=== PATIENT | female | born 1985 | race African-American/Black ===

== ENCOUNTER 2018-08-15 07:19 | Inpatient (IN) | payer OTHER ==
[~2018-08-15] VITALS: Ht 162.6 cm; Wt 113.4 kg
--- NOTE | 2018-08-15 07:32 | EN ---
Date/Time of Note Date/Time of Note DATE: 08/15/18 TIME: 07:31 ER Progress Note Patient is a direct admission from [facility]. Upon arrival, I reviewed the patient's records. Patient appears stable and comfortable. Current medical screening examination shows the patient to require further admission as per her evaluation at [facility] the patient will be admitted when a bed is available. VALERIE VALERIO Aug 15, 2018 07:32
[2018-08-15] MEDS ORDERED: HYDROmorphONE 2 MG/ML SYG IV STA (07:56)
[2018-08-15] MEDS ORDERED: ALPRAZOLAM 1 MG TAB PO ONE (08:00)
[2018-08-15] MEDS ORDERED: HEPARIN 1000 UNITS/ML 10 ML INJ IV PRN ×2 (10:00)
[2018-08-15] MEDS ORDERED: ALPR1TAB2 PO (10:12)
[2018-08-15] MEDS ORDERED: OXYC5CAP17 PO (10:13)
[2018-08-15] MEDS: morphine 2 MG INJ IV PRN ×2 (11:43→20:20)
[2018-08-15] MEDS ORDERED: DOCUSATE SODIUM 100 MG CAP PO PRN (14:00)
[2018-08-15] MEDS ORDERED: HYDROmorphONE 1 MG/ML SYG IV ONE (14:00)
[2018-08-15] MEDS ORDERED: ONDANSETRON 4 MG INJ IV PRN (14:00)
[2018-08-15] MEDS ORDERED: MAGNESIUM HYDROXIDE 30ML CUP PO PRN (14:00)
[2018-08-15] MEDS ORDERED: NACL 0.9% 3 ML SYG IV SCH (14:00)
[2018-08-15] MEDS ORDERED: BISACODYL 10 MG SUPP PR PRN (14:00)
[2018-08-15] MEDS ORDERED: HYDROCODONE/APAP (5/325) TAB PO PRN (14:00)
--- NOTE | 2018-08-15 14:16 | HP ---
Date/Time of Note Date/Time of Note DATE: 08/15/18 TIME: 14:02 Assessment/Plan VTE Prophylaxis SCD applied (from Nsg): Yes Pharmacological prophylaxis: heparin Assessment/Plan Hospital Course Assessment and plan 1. DVT right upper extremity. Continue with anticoagulation. f/u lab studies. Follow-up imaging. Continue with analgesics for pain control. We will get pain management consult 2. Reported endocarditis. Will get ID consult follow. Resume on Ancef. 3. Reported history of septic emboli to lung. Will obtain medical records from [facility]. Continue antibiotics. On anticoagulation. ID consult to follow. 4. Reported history of CHF. Follow-up on echo. O2 PRN 5. Obesity. Weight reduction to be advised 6. Anxiety. Continue anxiolytics Discussed POC with Dr. Shah Result Diagram: 08/15/18 1028 Results 24hrs Laboratory Tests Test 08/15/18 08:00 08/15/18 10:28 Activated Partial Thromboplast Time 44.5 H 36.5 H White Blood Count 8.1 Red Blood Count 3.66 L Hemoglobin 10.3 L Hematocrit 32.4 L Mean Corpuscular Volume 88.5 Mean Corpuscular Hemoglobin 28.1 L Mean Corpuscular Hemoglobin Concent 31.8 L Red Cell Distribution Width 14.7 H Platelet Count 270 Mean Platelet Volume 9.2 Immature Granulocytes % 0.200 Neutrophils % 55.6 Lymphocytes % 32.8 Monocytes % 9.7 Eosinophils % 1.2 Basophils % 0.5 Nucleated Red Blood Cells % 0.0 Immature Granulocytes # 0.020 Neutrophils # 4.5 Lymphocytes # 2.7 Monocytes # 0.8 Eosinophils # 0.1 Basophils # 0.0 Nucleated Red Blood Cells # 0.0 Prothrombin Time 12.8 Prothrombin Time Ratio 1.0 INR International Normalized Ratio 0.95 HPI/ROS Admit Date/Time Admit Date/Time Hx of Present Illness This is a 32-year-old female with 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 She reports that roughly 5 to 6 days ago she started to experience pain on right upper extremity where her PICC line was and went to [facility] again to have the plan removed and replaced and put a new PICC line on the left arm. She does report good compliance with her medication. She did state that her right arm started to in crease with swelling which she states extended to her breast on the right. She was brought back to [facility] but due to insurance issue was transferred to [facility] for further evaluation and treatment. Of note she did have duplex study done on right upper extremity roughly 2 days prior to this admission at [facility] and there was found to be a DVT. She denies any chest pain at present. Recent chest x-ray done on August 15, 2018 at [facility] showed no evidence of acute cardiopulmonary process. She was afebrile on arrival. She is slightly tachycardic suspect secondary to her reported history of anxiety and current pain. We will evaluate her for the aformentiond issues. ROS 12 point review of systems obtained entirely negative except as mentioned in history of present illness PMH/Family/Social Past Medical History medical/surgical history 1. Endocarditis 2. CHF 3. Reported "cardiac blood clot". 4. Septic emboli 5. Obesity 6. Anxiety Medications Current Medications Heparin Sodium (Porcine) (Heparin (1000 Units/ml)) 9,100 unit PER PROTOCOL PRN IV aPTT<47 Last administered on 08/15/18at 12:07; Admin Dose 9,100 UNIT; Start 08/15/18 at 10:00 Heparin Sodium (Porcine) (Heparin (1000 Units/ml)) 4,500 unit PER PROTOCOL PRN IV aPTT<47-57; Start 08/15/18 at 10:00 Heparin Sodium (Porcine) 250 ml @ 0 mls/hr PER PROTOCOL IV ; Start 08/15/18 at 10:00 Morphine Sulfate (morphine) 2 mg Q4 PRN IV CRIES SCALE 5-7 Last administered on 08/15/18at 11:43; Admin Dose 2 MG; Start 08/15/18 at 12:00 IV Flush (NS 3 ml) 3 ml PER PROTOCOL IV ; Start 08/15/18 at 14:00 Ondansetron HCl (Zofran Inj) 4 mg Q6H PRN IV NAUSEA/VOMITING; Start 08/15/18 at 14:00 Acetaminophen (Tylenol Tab) 650 mg Q6H PRN PO .PAIN 1-3 OR TEMP; Start 08/15/18 at 14:00 Acetaminophen/ Hydrocodone Bitart ([place] (5/325)) 1 tab Q6H PRN PO .MOD PAIN 4- 6; Start 08/15/18 at 14:00 Acetaminophen/ Hydrocodone Bitart ([place] (5/325)) 2 tab Q6H PRN PO .SEVERE PAIN 7-10; Start 08/15/18 at 14:00 Hydromorphone HCl (Dilaudid) 0.5 mg Q4H PRN IV .SEVERE PAIN 7-10; Start 08/15/18 at 14:00 Docusate Sodium (Colace) 100 mg Q12H PRN PO .CONSTIPATION; Start 08/15/18 at 14:00 Magnesium Hydroxide (Milk Of Mag) 30 ml DAILY PRN PO .CONSTIPATION; Start 08/15/18 at 14:00 Bisacodyl (Dulcolax Supp) 10 mg DAILY PRN [place] .CONSTIPATION; Start 08/15/18 at 14:00 Pantoprazole (Protonix Iv) 40 mg DAILY@06 IV ; Start 08/16/18 at 06:00 Cefazolin Sodium/ Dextrose 50 ml @ 100 mls/hr Q8 IVPB ; Start 08/15/18 at 14:00 Coded Allergies: No Known Allergy (Unverified , 08/15/18) Family History Significant Family History: other (Father side: CHF, diabetes, reported blood clots. Mother side: Hypertension) Social History Alcohol Use: none Smoking Status: Never smoker Drug Use: none Exam/Review of Systems Vital Signs Vitals Vital Signs Date Temp Pulse Resp B/P (MAP) Pulse Ox O2 O2 Flow FiO2 Time Delivery Rate 08/15/18 111 22 108/39 98 Room Air 13:08 (62) 08/15/18 97.3 07:41 Exam Constitutional: alert, oriented, other (Obese) Psych: anxiety Head: normocephalic Neck: supple, non-tender Respiratory: clear to auscultation Cardiovascular: other (Tachycardic) Gastrointestinal: soft, non-tender Musculoskeletal: swelling (Right upper extremity) Neurological: SCAFFOLD SETTER II-XII intact, nl mental status, nl speech REGIDORJOHN NP Aug 15, 2018 14:16
[2018-08-15] MEDS: CEFAZOLIN 2 GM/50 ML (PMX) 50 ML IVPB SCH ×2 (14:21→23:18)
[2018-08-15] MEDS: HEPARIN 25000 UNITS/250 ML 250 ML IV SCH (14:40)
[2018-08-15] MEDS: HYDROCODONE/APAP (5/325) TAB PO PRN ×2 (15:50→21:43)
[2018-08-15] MEDS: ALPRAZOLAM 1 MG TAB PO PRN (15:50)
[2018-08-15] MEDS: HYDROmorphONE 0.5 MG/0.5 ML SYG IV PRN ×2 (18:49→22:51)
--- NOTE | 2018-08-15 20:22 | CONS ---
DATE OF ADMISSION: 08/15/2018 DATE OF CONSULTATION: 08/15/2018 TYPE OF CONSULTATION: Infectious disease. REASON FOR CONSULTATION: Antibiotic management. HISTORY OF PRESENT ILLNESS: Magui Wilson is a 32-year-old female with a recent history of gram-pos itive cocci endocarditis reported septic emboli to her lung. She was cared for at [facility], discharged on 07/18/2018 with PICC line for antibiotics, Ancef for a total of 6 weeks. About 5 or 6 days ago, she experienced increasing right upper extremity pain where the PICC line was and went to [place] to have the PICC line removed and replaced. She does take her medications. She sta herber that her right arm started to have increasing swelling extending to her breast on the right side. A new PICC line was put on the left. The right arm continued to increase with swelling. She was t [facility]. A duplex on the right side 2 days ago prior to this admission, [place] was found to have a DVT of the right upper extremity. She denies any chest pain. No acute cardiop ulmonary process done at [place]. Today, she was slightly tachycardic, possibly due to anxiety and pain. PAST MEDICAL HISTORY: The patient has gram-positive endocarditis, congestive heart failure. A cardi ac blood clots which was reported as septic emboli, obesity and anxiety. FAMILY HISTORY: Noncontributory. Father has diabetes, also blood clots, congestive heart failure. FAMILY HISTORY: Mother has hypertension. SOCIAL HISTORY: She does not smoke, drink or abuse drugs. ALLERGIES: NONE TO PENICILLIN, SULFA OR FOODS. MEDICATIONS: Per chart. REVIEW OF SYSTEMS: As per HPI. PHYSICAL EXAMINATION: GENERAL: The patient is alert, responsive, in no acute distress. VITAL SIGNS: Stable. She is afebrile. SKIN: Without generalized rash. HEENT: Within normal limits. NECK: Supple. LYMPH NODES: None palpable. CHEST: Decreased breath sounds at the bases. HEART: Tachycardic without murmur or gallop. ABDOMEN: Soft, nontender without organosplenomegaly or masses. EXTREMITIES: The right upper extremity is swollen, but lower extremities without cyanosis, clubbing or edema. RECTAL AND GENITAL: Deferred. NEUROLOGICAL: No focal neurological abnormality. IMPRESSION AND PLAN: The patient is being treated for endocarditis, resume Ancef, deep venous thromb osis of right upper extremity, history of septic emboli to the lungs. Lungs are now clear. We will continue her on current therapy. Dictated By: MENDOZA DIAZ MD, JD/ELSY Conf#: [id number] DID#: [id number] CC: ESTRELLITA ANGEL MD;*EndCC*
[2018-08-15 20:23] VITALS: BP 150/85; PULSE 110; RESP 18
[2018-08-15 20:47] VITALS: Ht 162.6 cm; Wt 113.4 kg
[2018-08-16 00:06] VITALS: BP 127/73; PULSE 113; RESP 17
[2018-08-16 04:18] VITALS: BP 124/68; PULSE 103; RESP 17
[2018-08-16] MEDS: CEFAZOLIN 2 GM/50 ML (PMX) 50 ML IVPB SCH ×3 (05:18→21:02)
[2018-08-16] MEDS: PANTOPRAZOLE 40 MG INJ IV SCH (05:19)
[2018-08-16] MEDS: HYDROmorphONE 0.5 MG/0.5 ML SYG IV PRN ×4 (06:07→19:44)
[2018-08-16] MEDS: HEPARIN 25000 UNITS/250 ML 250 ML IV SCH (06:25)
[2018-08-16] MEDS: HYDROCODONE/APAP (5/325) TAB PO PRN ×2 (06:43→21:03)
[2018-08-16] MEDS: ALPRAZOLAM 1 MG TAB PO PRN ×2 (07:38→21:51)
[2018-08-16 07:42] VITALS: BP 132/66; PULSE 104; RESP 18
--- NOTE | 2018-08-16 09:38 | PN ---
Date/Time of Note Date/Time of Note DATE: 08/16/18 TIME: 09:37 Assessment/Plan VTE Prophylaxis SCD applied (from Nsg): Yes Pharmacological prophylaxis: heparin Lines/Catheters IV Catheter Type (from Nrsg): PICC Line Central line still needed: Yes Urinary Cath still in place: No Assessment/Plan Hospital Course SUBJECTIVE: Continues to complains of right upper extremity and right breast pain. OBJECTIVE: Physical Exam General: Morbidly obese, 32 year-old female lying in bed in no apparent distress. HEENT: Normocephalic, atraumatic. Eyes: Anicteric sclerae, conjunctivae clear. ENT: Nasal septum midline, oral mucosa moist. Neck supple, no JVD noticed. Respiratory: Bilaterally diminished breath sounds. No use of accessory muscles of respiration. No adventitious breath sounds. Cardiovascular: S1, S2 heard. Tachycardia. Abdomen: Soft, nontender, and nondistended. Bowel sounds positive in all 4 quadrants. Genitourinary: Deferred. Extremities: No cyanosis, no clubbing. Right upper extremity edema. Peripheral pulses palpable. Edema and warmth in the right biceps all the way into the axilla and right upper quadrant of the right breast. Neurologic: Cranial nerves II through XII grossly intact. The patient is awake, alert, and oriented. Skin: Normal skin turgor. Multiple tattoos. Labs & Vitals per chart ASSESSMENT & PLAN 32-year-old F with comorbidities including morbid obesity (BMI>42 kg/m), reported history of endocarditis, and anxiety disorder who was recently admitted to [facility] and was discharged home on July 18, 2018 with a PICC line for antibiotics for total of 6 weeks. The patient returned to [facility] with chief complaint of right upper extremity pain at the site of PICC with DVT on the RUE and her PICC was replaced on LUE; transferred to [facility] for because of insurance reasons. 1. Extensive DVT of the right upper extremity. On heparin drip. Vascular surgery has been consulted. 2. Reported history of endocarditis. Continue Ancef as per ID recommendations. Obtain cardiology consult. Pending 2D echo. 3. Morbid obesity. BMI more than 42 kg/m. Advised weight reduction. 4. Anxiety disorder. Continue PRN anxiolytics. 5. Normocytic anemia. Etiology unclear. Monitor H&H closely. 6. Fluids, electrolytes, and nutrition. Regular diet. 7. DVT prophylaxis. On heparin drip. 8. Plan. Continue antibiotics as per ID. Repeat 2D echocardiogram. Obtain cardiology consult. The patient was seen in collaboration with Dr. Herrera. Result Diagram: 08/16/18 0605 08/16/18 0605 Results 24hrs Laboratory Tests Test 08/15/18 10:28 08/15/18 14:45 08/15/18 16:21 08/15/18 17:35 White Blood Count 8.1 Red Blood Count 3.66 L Hemoglobin 10.3 L Hematocrit 32.4 L Mean Corpuscular Volume 88.5 Mean Corpuscular 28.1 L Hemoglobin Mean Corpuscular 31.8 L Hemoglobin Concent Red Cell Distribution 14.7 H Width Platelet Count 270 Mean Platelet Volume 9.2 Immature Granulocytes % 0.200 Neutrophils % 55.6 Lymphocytes % 32.8 Monocytes % 9.7 Eosinophils % 1.2 Basophils % 0.5 Nucleated Red Blood 0.0 Cells % Immature Granulocytes # 0.020 Neutrophils # 4.5 Lymphocytes # 2.7 Monocytes # 0.8 Eosinophils # 0.1 Basophils # 0.0 Nucleated Red Blood 0.0 Cells # Prothrombin Time 12.8 Prothrombin Time Ratio 1.0 INR International 0.95 Normalized Ratio Activated 36.5 H > 180.0 *H 54.9 H Partial Thromboplast Time Erythrocyte 60 H Sedimentation Rate Test 08/16/18 00:22 08/16/18 06:05 Activated 91.8 *H 144.0 *H Partial Thromboplast Time White Blood Count 7.5 Red Blood Count 3.51 L Hemoglobin 9.8 L Hematocrit 31.1 L Mean Corpuscular Volume 88.6 Mean Corpuscular 27.9 L Hemoglobin Mean Corpuscular 31.5 L Hemoglobin Concent Red Cell Distribution 14.8 H Width Platelet Count 292 Mean Platelet Volume 9.8 Immature Granulocytes % 0.300 Neutrophils % 63.8 Lymphocytes % 26.0 Monocytes % 7.9 Eosinophils % 1.6 Basophils % 0.4 Nucleated Red Blood 0.0 Cells % Immature Granulocytes # 0.020 Neutrophils # 4.8 Lymphocytes # 1.9 Monocytes # 0.6 Eosinophils # 0.1 Basophils # 0.0 Nucleated Red Blood 0.0 Cells # Sodium Level 139 Potassium Level 4.2 Chloride Level 104 Carbon Dioxide Level 28 Anion Gap 7 Blood Urea Nitrogen 13 Creatinine 0.47 Est Glomerular Filtrat > 60 Rate mL/min Glucose Level 100 Hemoglobin A1c 4.9 Calcium Level 8.8 Phosphorus Level 5.0 H Magnesium Level 1.8 Total Bilirubin 0.3 Direct Bilirubin 0.00 Indirect Bilirubin 0.3 Aspartate Amino 41 Transf (AST/SGOT) Alanine 21 Aminotransferase (ALT/SG PT) Alkaline Phosphatase 125 H Total Protein 6.7 Albumin 3.2 L Globulin 3.50 H Albumin/Globulin Ratio 0.91 Triglycerides Level 84 Cholesterol Level 179 LDL Cholesterol, 115 Calculated HDL Cholesterol 47 Cholesterol/HDL Ratio 3.8 Thyroid Stimulating 0.733 Hormone (TSH) Free Thyroxine Index 3.65 Thyroxine (T4) 9.2 Triiodothyronine (T3) 39.7 Uptake Exam/Review of Systems Exam Vitals Vital Signs Date Temp Pulse Resp B/P (MAP) Pulse Ox O2 O2 Flow FiO2 Time Delivery Rate 08/16/18 98.7 104 18 132/66 100 07:42 (88) 08/15/18 Room Air 19:41 Intake and Output 08/15/18 08/15/18 08/16/18 1515:00 23:00 07:00 IntakeIntake Total 200 ml 750 ml BalanceBalance 200 ml 750 ml Results Results 24hrs Laboratory Tests Test 08/15/18 10:28 08/15/18 14:45 08/15/18 16:21 08/15/18 17:35 White Blood Count 8.1 Red Blood Count 3.66 L Hemoglobin 10.3 L Hematocrit 32.4 L Mean Corpuscular Volume 88.5 Mean Corpuscular 28.1 L Hemoglobin Mean Corpuscular 31.8 L Hemoglobin Concent Red Cell Distribution 14.7 H Width Platelet Count 270 Mean Platelet Volume 9.2 Immature Granulocytes % 0.200 Neutrophils % 55.6 Lymphocytes % 32.8 Monocytes % 9.7 Eosinophils % 1.2 Basophils % 0.5 Nucleated Red Blood 0.0 Cells % Immature Granulocytes # 0.020 Neutrophils # 4.5 Lymphocytes # 2.7 Monocytes # 0.8 Eosinophils # 0.1 Basophils # 0.0 Nucleated Red Blood 0.0 Cells # Prothrombin Time 12.8 Prothrombin Time Ratio 1.0 INR International 0.95 Normalized Ratio Activated 36.5 H > 180.0 *H 54.9 H Partial Thromboplast Time Erythrocyte 60 H Sedimentation Rate Test 08/16/18 00:22 08/16/18 06:05 Activated 91.8 *H 144.0 *H Partial Thromboplast Time White Blood Count 7.5 Red Blood Count 3.51 L Hemoglobin 9.8 L Hematocrit 31.1 L Mean Corpuscular Volume 88.6 Mean Corpuscular 27.9 L Hemoglobin Mean Corpuscular 31.5 L Hemoglobin Concent Red Cell Distribution 14.8 H Width Platelet Count 292 Mean Platelet Volume 9.8 Immature Granulocytes % 0.300 Neutrophils % 63.8 Lymphocytes % 26.0 Monocytes % 7.9 Eosinophils % 1.6 Basophils % 0.4 Nucleated Red Blood 0.0 Cells % Immature Granulocytes # 0.020 Neutrophils # 4.8 Lymphocytes # 1.9 Monocytes # 0.6 Eosinophils # 0.1 Basophils # 0.0 Nucleated Red Blood 0.0 Cells # Sodium Level 139 Potassium Level 4.2 Chloride Level 104 Carbon Dioxide Level 28 Anion Gap 7 Blood Urea Nitrogen 13 Creatinine 0.47 Est Glomerular Filtrat > 60 Rate mL/min Glucose Level 100 Hemoglobin A1c 4.9 Calcium Level 8.8 Phosphorus Level 5.0 H Magnesium Level 1.8 Total Bilirubin 0.3 Direct Bilirubin 0.00 Indirect Bilirubin 0.3 Aspartate Amino 41 Transf (AST/SGOT) Alanine 21 Aminotransferase (ALT/SG PT) Alkaline Phosphatase 125 H Total Protein 6.7 Albumin 3.2 L Globulin 3.50 H Albumin/Globulin Ratio 0.91 Triglycerides Level 84 Cholesterol Level 179 LDL Cholesterol, 115 Calculated HDL Cholesterol 47 Cholesterol/HDL Ratio 3.8 Thyroid Stimulating 0.733 Hormone (TSH) Free Thyroxine Index 3.65 Thyroxine (T4) 9.2 Triiodothyronine (T3) 39.7 Uptake Medications Medication Current Medications Heparin Sodium (Porcine) (Heparin (1000 Units/ml)) 9,100 unit PER PROTOCOL PRN IV aPTT<47 Last administered on 08/15/18at 12:07; Admin Dose 9,100 UNIT; Start 08/15/18 at 10:00 Heparin Sodium (Porcine) (Heparin (1000 Units/ml)) 4,500 unit PER PROTOCOL PRN IV aPTT<47-57 Last administered on 08/15/18at 19:11; Admin Dose 4,500 UNIT; Start 08/15/18 at 10:00 Heparin Sodium (Porcine) 250 ml @ 0 mls/hr PER PROTOCOL IV Last administered on 08/16/18at 06:25; Admin Dose 26 MLS/HR; Start 08/15/18 at 10:00 Morphine Sulfate (morphine) 2 mg Q4 PRN IV CRIES SCALE 5-7 Last administered on 08/15/18at 20:20; Admin Dose 2 MG; Start 08/15/18 at 12:00 IV Flush (NS 3 ml) 3 ml PER PROTOCOL IV ; Start 08/15/18 at 14:00 Ondansetron HCl (Zofran Inj) 4 mg Q6H PRN IV NAUSEA/VOMITING; Start 08/15/18 at 14:00 Acetaminophen (Tylenol Tab) 650 mg Q6H PRN PO .PAIN 1-3 OR TEMP; Start 08/15/18 at 14:00 Acetaminophen/ Hydrocodone Bitart ([place] (5/325)) 1 tab Q6H PRN PO .MOD PAIN 4- 6; Start 08/15/18 at 14:00 Acetaminophen/ Hydrocodone Bitart ([place] (5/325)) 2 tab Q6H PRN PO .SEVERE PAIN 7-10 Last administered on 08/16/18at 06:43; Admin Dose 2 TAB; Start 08/15/18 at 14:00 Hydromorphone HCl (Dilaudid) 0.5 mg Q4H PRN IV .SEVERE PAIN 7-10 Last admi nistered on 08/16/18at 06:07; Admin Dose 0.5 MG; Start 08/15/18 at 14:00 Docusate Sodium (Colace) 100 mg Q12H PRN PO .CONSTIPATION; Start 08/15/18 at 14:00 Magnesium Hydroxide (Milk Of Mag) 30 ml DAILY PRN PO .CONSTIPATION; Start 08/15/18 at 14:00 Bisacodyl (Dulcolax Supp) 10 mg DAILY PRN [place] .CONSTIPATION; Start 08/15/18 at 14:00 Pantoprazole (Protonix Iv) 40 mg DAILY@06 IV Last administered on 08/16/18at 05:19; Admin Dose 40 MG; Start 08/16/18 at 06:00 Cefazolin Sodium/ Dextrose 50 ml @ 100 mls/hr Q8 IVPB Last administered on 08/16/18at 05:18; Admin Dose 100 MLS/HR; Start 08/15/18 at 14:00 Alprazolam (Xanax) 1 mg BID PRN PO ANXIETY Last administered on 08/16/18at 07:38; Admin Dose 1 MG; Start 08/15/18 at 14:30 JHOANA CAMPA NP Aug 16, 2018 09:38
[2018-08-16 12:05] VITALS: BP 123/69; PULSE 103; RESP 18
[2018-08-16 16:17] VITALS: BP 136/56; PULSE 100; RESP 17
[2018-08-16] MEDS: morphine 2 MG INJ IV PRN (17:57)
--- NOTE | 2018-08-16 18:47 | CONS ---
DATE OF ADMISSION: 08/15/2018 DATE OF CONSULTATION: 08/16/2018 TYPE OF CONSULTATION: Cardiology. REASON FOR CONSULTATION: Possible endocarditis. REQUESTING PHYSICIAN: Mak Mckeon NP, from the hospitalist service. HISTORY OF PRESENT ILLNESS: Ms. Wilson is a 32-year-old female with a history of reported bout of se psis with subsequent diagnosis of endocarditis and septic emboli per patient at [facility] on 07/15/2018, was given PICC line and diagnosed with long-term antibiotics for 6 weeks. The patien t states then she represented to [facility] recently last 2 to 3 days on 07/15/2018 with c omplaints of right arm pain and swelling and was diagnosed with DVT and subsequently had to have her PICC line removed and transferred to the opposite arm on the left side. The patient was thereafter t ransferred to [facility] due to insurance reasons. Since arrival at [facility], the patient denies chest pain, shortness of breath, palpitations. PAST MEDICAL HISTORY: As above in HPI. MEDICATIONS CURRENTLY IN HOSPITAL: 1. Dilaudid 1 mg IV q.4. 2. Protonix 40 mg IV daily. 3. Xanax 1 mg b.i.d. p.r.n. 4. Zofran p.r.n. 5. Tylenol p.r.n. 6. Maurice p.r.n. 7. Colace p.r.n. 8. Dulcolax. 9. Ancef IV q.8. 10. Heparin IV. ALLERGIES: NO KNOWN DRUG ALLERGIES. SOCIAL HISTORY: Quit tobacco less than 1 month. Rare, social EtOH. No illicit drug use. FAMILY HISTORY: No history of sudden cardiac or early CAD. REVIEW OF SYSTEMS: As above in HPI. CONSTITUTIONAL: No fevers, chills. PULMONARY: No current shortness of breath. CARDIOVASCULAR: No current chest pain. Mild tachycardia. GASTROINTESTINAL: No vomiting. GENITOURINARY: No hematuria. MUSCULOSKELETAL: Degenerative joint disease. PSYCHIATRIC: Positive history of psych disorder. NEUROLOGIC: No documented history of CVA. PHYSICAL EXAMINATION VITAL SIGNS: Temperature 97.6, blood pressure most recently 136/56, pulse 100, respiratory rate 17, saturation 100%. GENERAL: The patient is alert, awake, in no acute distress. NECK: JVP is approximately 8 to 9 cm of water. CHEST: Fair air movement throughout. HEART: Tachycardic, regular rhythm, normal S1, S2, I/ systolic murmur, nondisplaced PMI. ABDOMEN: Positive bowel sounds, soft. EXTREMITIES: Left upper extremity edema, 1+ pulses bilateral posterior tibial. NEUROLOGICAL: No focal neuro deficits. LABORATORY DATA: Most recent from today, white blood cell count 10.5, hemoglobin 9.8, platelet count 292. Sodium of 139, potassium 4.2, creatinine 0.47, BUN 13. Magnesium 1.8. LDL 115, HDL 47. TSH of 0.733. Tox screen is positive for opiates and benzos and cannabinoids. IMAGING STUDIES: Venous ultrasound from 08/15/2018 revealing extensive DVT in the right upper extrem ity and breast ultrasound from 08/16/2018 that revealed no sonographic finding of malignancy. ELECTROCARDIOGRAM: No electrocardiograms for my review at this time. IMPRESSION: 1. History of recently diagnosed endocarditis, assess for ongoing infection. 2. Tachycardia, borderline consistent with sinus tachycardia. 3. Hypertension, labile may be related to pain, currently improved, off of antihypertensives recentl y today. 4. Deep venous thrombosis of the right extremity, likely secondary to PICC line that was in place. 5. Anemia. 6. Psychiatric disorder. RECOMMENDATIONS: 1. At this time, we would maintain the patient on telemetry monitoring to follow rhythm and rate con trol closely. 2. We would continue the patient's baseline Ancef for treatment of ongoing infection and the patient 's ongoing heparin. 3. We will follow up patient's 2D echo done for reassessment of ejection fraction, wall motion, rule out any new intracardiac source of infection or ongoing intracardiac source of infection. 4. We would check blood cultures and follow up closely. 5. Awaiting outside hospital information to be faxed. Thank you for allowing me to take part in the care of this patient. I will continue to follow her cl osely with you with further recommendations will be made as the patient progresses [facility]. Dictated By: KI TIJERINA/NTS Conf#: [id number] DID#: [id number] CC: MENDOZA DIAZ MD; ESTRELLITA ANGEL MD;*EndCC*
[2018-08-16 20:14] VITALS: BP 135/67; PULSE 119; RESP 17
[2018-08-16] MEDS ORDERED: ALTEPLASE (CATHFLO) 2 MG INJ CATHETER ONE (22:30)
[2018-08-17] VITALS: BP 117/58; PULSE 112; RESP 18
--- NOTE | 2018-08-17 00:21 | RADRPT ---
Echocardiogram Report Patient Name: RAINE MATTSONPatient ID: [id number] : 1985 (32y 9m)Study Date: 08/16/2018 7:20:49 AM Gender: FAccession #: [id number] Tech: Columba Sosa [facility] Location: 504 Ref.Physician: JOHN WILL Height(Cm): BSA: Weight(Kg): Quality: AdequateOrder Physician: JOHN WILL Account #: Procedures: Echocardiographic Report: Transthoracic echocardiogram with complete 2D, M-Mode, and doppler examination. Indications: Endocarditis. Measurements: 2D/M Mode Doppler Measurement Value Normal Range Measurement Value Normal Range LVIDd 2D 4.3 [ 3.8 - 5.2 ] cm AV Peak Sathish 1.2 [ 100.0 - 170.0 ] cm/sec LVIDs 2D 2.7 [ 2.2 - 3.5 ] cm AV Peak PG 6.0 [ 2.0 - 9.0 ] mmHg LVPWd 2D 1.1 [ 0.6 - 0.9 ] cm LVOT Peak Sathish 0.8 [ 70.0 - 110.0 ] cm/sec IVSd 2D 1.1 [ 0.6 - 0.9 ] cm LVOT Peak PG 3.0 [ 2.0 - 6.0 ] mmHg AoR Diam 2D 2.8 [ 2.3 - 3.1 ] cm TR Peak Sathish 2.8 [ 100.0 - 280.0 ] cm/sec EDV 2D 84.0 [ 46.0 - 106.0 ] ml TR Peak PG 30.0 mmHg ESV 2D 27.3 [ 14.0 - 42.0 ] ml RVSP 33.0 [ 10.0 - 36.0 ] mmHg EF 2D 67.5 [ 54.0 - 74.0 ] percent RA Pressure 3.0 mmHg LA Dimen 2D 3.7 [ 2.7 - 3.8 ] cm Findings: Left Ventricle: Normal left ventricular systolic function. Normal left ventricular cavity size. Mild concentric left ventricular hypertrophy. Ejection fraction is visually estimated at 55 %. Abnormal Diastolic Function. Right Ventricle: Normal right ventricular size. Normal right ventricular systolic function. Left Atrium: The left atrium is normal in size. Right Atrium: The right atrium is normal in size. Mitral Valve: Normal appearance and function of the mitral valve with trace physiologic regurgitation. Aortic Valve: Normal appearance of the aortic valve. No significant aortic stenosis or insufficiency. Tricuspid Valve: Normal appearance of the tricuspid valve. The estimated Peak RVSP is 33 mmHg. There is mild tricuspid regurgitation. Pulmonic Valve: Normal pulmonic valve appearance. Pericardium: Normal pericardium with no significant pericardial effusion. Aorta: Normal aortic root. IVC: Normal size and normal respiratory collapse consistent with normal right atrial pressure. Conclusions: Normal left ventricular systolic function. Normal left ventricular cavity size. Mild concentric left ventricular hypertrophy. Ejection fraction is visually estimated at 55 %. Abnormal Diastolic Function. Normal appearance and function of the mitral valve with trace physiologic regurgitation. Normal appearance of the tricuspid valve. The estimated Peak RVSP is 33 mmHg. There is mild tricuspid regurgitation. Electronically Signed By: Navid Drake 2018-08-16 19:36:26 PDT
[2018-08-17] MEDS: HYDROmorphONE 0.5 MG/0.5 ML SYG IV PRN ×6 (00:28→22:13)
[2018-08-17] MEDS: HEPARIN 25000 UNITS/250 ML 250 ML IV SCH ×3 (01:08→22:19)
[2018-08-17] MEDS: HYDROCODONE/APAP (5/325) TAB PO PRN ×3 (02:57→20:51)
[2018-08-17 04:31] VITALS: BP 118/60; PULSE 95; RESP 18
[2018-08-17] MEDS: PANTOPRAZOLE 40 MG INJ IV SCH (05:10)
[2018-08-17] MEDS: CEFAZOLIN 2 GM/50 ML (PMX) 50 ML IVPB SCH ×3 (05:10→22:01)
[2018-08-17 07:31] VITALS: BP 141/62; PULSE 100; RESP 18
--- NOTE | 2018-08-17 10:37 | PN ---
Date/Time of Note Date/Time of Note DATE: 08/17/18 TIME: 10:34 Assessment/Plan VTE Prophylaxis Risk score (from Nsg)>0 risk: 4 SCD applied (from Nsg): Yes Pharmacological prophylaxis: heparin Lines/Catheters IV Catheter Type (from Nrsg): PICC Line Central line still needed: Yes Urinary Cath still in place: No Assessment/Plan Hospital Course SUBJECTIVE: Continues to complains of right upper extremity and right breast pain. Remains on heparin gtt. OBJECTIVE: Physical Exam General: Morbidly obese, 32 year-old female lying in bed in no apparent distress. HEENT: Normocephalic, atraumatic. Eyes: Anicteric sclerae, conjunctivae clear. ENT: Nasal septum midline, oral mucosa moist. Neck supple, no JVD noticed. Respiratory: Bilaterally diminished breath sounds. No use of accessory muscles of respiration. No adventitious breath sounds. Cardiovascular: S1, S2 heard. Tachycardia. Abdomen: Soft, nontender, and nondistended. Bowel sounds positive in all 4 quadrants. Genitourinary: Deferred. Extremities: No cyanosis, no clubbing. Right upper extremity edema. Peripheral pulses palpable. Edema and warmth in the right biceps all the way into the axilla. Neurologic: Cranial nerves II through XII grossly intact. The patient is awake, alert, and oriented. Skin: Normal skin turgor. Multiple tattoos. Labs & Vitals per chart ASSESSMENT & PLAN 32-year-old F with comorbidities including morbid obesity (BMI>42 kg/m), r eported history of endocarditis, and anxiety disorder who was recently admitted to [facility] and was discharged home on July 18, 2018 with a PICC line for antibiotics for total of 6 weeks. The patient returned to [place] [facility] with chief complaint of right upper extremity pain at the site of PICC with DVT on the RUE and her PICC was replaced on LUE; transferred to [facility] for because of insurance reasons. 1. Extensive DVT of the right upper extremity. On heparin drip. Vascular surgery has been consulted. 2. Reported history of endocarditis. Continue Ancef as per ID recommendations. Cardiology following 2D echo results noted. 3. Morbid obesity. BMI more than 42 kg/m. Advised weight reduction. 4. Anxiety disorder. Continue PRN anxiolytics. 5. Normocytic anemia. Etiology unclear. Monitor H&H closely. 6. Fluids, electrolytes, and nutrition. Regular diet. 7. DVT prophylaxis. On heparin drip. 8. Plan. Continue antibiotics as per ID. Obtain hematology evaluation. The patient was seen in collaboration with Dr. Herrera. Result Diagram: 08/17/18 0603 08/17/18 0603 Results 24hrs Laboratory Tests Test 08/16/18 12:04 08/16/18 14:33 08/16/18 18:46 08/16/18 20:49 Urine Test NEGATIVE Urine Opiates Screen Positive Urine Barbiturates Negative Urine Amphetamines Negative Screen Urine Benzodiazepines Positive Screen Urine Cocaine Screen Negative Urine Cannabinoids Positive Activated > 180.0 *H 37.6 H 33.1 Partial Thromboplast Time Test 08/17/18 00:27 08/17/18 06:03 Troponin I < 0.012 < 0.012 White Blood Count 6.0 Red Blood Count 3.34 L Hemoglobin 9.4 L Hematocrit 29.4 L Mean Corpuscular Volume 88.0 Mean Corpuscular 28.1 L Hemoglobin Mean Corpuscular 32.0 Hemoglobin Concent Red Cell Distribution 14.5 Width Platelet Count 271 Mean Platelet Volume 9.4 Immature Granulocytes % 0.500 H Neutrophils % 54.8 Lymphocytes % 34.1 Monocytes % 7.8 Eosinophils % 2.3 Basophils % 0.5 Nucleated Red Blood 0.0 Cells % Immature Granulocytes # 0.030 Neutrophils # 3.3 Lymphocytes # 2.1 Monocytes # 0.5 Eosinophils # 0.1 Basophils # 0.0 Nucleated Red Blood 0.0 Cells # Sodium Level 138 Potassium Level 4.0 Chloride Level 104 Carbon Dioxide Level 27 Anion Gap 7 Blood Urea Nitrogen 13 Creatinine 0.59 Est Glomerular Filtrat > 60 Rate mL/min Glucose Level 146 # Calcium Level 8.4 Phosphorus Level 4.9 Magnesium Level 1.8 Exam/Review of Systems Exam Vitals Vital Signs Date Temp Pulse Resp B/P (MAP) Pulse Ox O2 O2 Flow FiO2 Time Delivery Rate 08/17/18 97.4 100 18 141/62 100 07:31 (88) 08/17/18 Room Air 04:31 Intake and Output 08/16/18 08/16/18 08/17/18 1515:00 23:00 07:00 IntakeIntake Total 880 ml 550 ml 180 ml OutputOutput Total 700 ml BalanceBalance 180 ml 550 ml 180 ml Results Results 24hrs Laboratory Tests Test 08/16/18 12:04 08/16/18 14:33 08/16/18 18:46 08/16/18 20:49 Urine Test NEGATIVE Urine Opiates Screen Positive Urine Barbiturates Negative Urine Amphetamines Negative Screen Urine Benzodiazepines Positive Screen Urine Cocaine Screen Negative Urine Cannabinoids Positive Activated > 180.0 *H 37.6 H 33.1 Partial Thromboplast Time Test 08/17/18 00:27 08/17/18 06:03 Troponin I < 0.012 < 0.012 White Blood Count 6.0 Red Blood Count 3.34 L Hemoglobin 9.4 L Hematocrit 29.4 L Mean Corpuscular Volume 88.0 Mean Corpuscular 28.1 L Hemoglobin Mean Corpuscular 32.0 Hemoglobin Concent Red Cell Distribution 14.5 Width Platelet Count 271 Mean Platelet Volume 9.4 Immature Granulocytes % 0.500 H Neutrophils % 54.8 Lymphocytes % 34.1 Monocytes % 7.8 Eosinophils % 2.3 Basophils % 0.5 Nucleated Red Blood 0.0 Cells % Immature Granulocytes # 0.030 Neutrophils # 3.3 Lymphocytes # 2.1 Monocytes # 0.5 Eosinophils # 0.1 Basophils # 0.0 Nucleated Red Blood 0.0 Cells # Sodium Level 138 Potassium Level 4.0 Chloride Level 104 Carbon Dioxide Level 27 Anion Gap 7 Blood Urea Nitrogen 13 Creatinine 0.59 Est Glomerular Filtrat > 60 Rate mL/min Glucose Level 146 # Calcium Level 8.4 Phosphorus Level 4.9 Magnesium Level 1.8 Medications Medication Current Medications Heparin Sodium (Porcine) (Heparin (1000 Units/ml)) 9,100 unit PER PROTOCOL PRN IV aPTT<47 Last administered on 08/15/18at 12:07; Admin Dose 9,100 UNIT; Start 08/15/18 at 10:00 Heparin Sodium (Porcine) (Heparin (1000 Units/ml)) 4,500 unit PER PROTOCOL PRN IV aPTT<47-57 Last administered on 08/15/18at 19:11; Admin Dose 4,500 UNIT; Start 08/15/18 at 10:00 Heparin Sodium (Porcine) 250 ml @ 0 mls/hr PER PROTOCOL IV Last administered on 08/17/18at 01:08; Admin Dose 19 MLS/HR; Start 08/15/18 at 10:00 Morphine Sulfate (morphine) 2 mg Q4 PRN IV CRIES SCALE 5-7 Last administered on 08/16/18 17:57; Admin Dose 2 MG; Start 08/15/18 at 12:00 IV Flush (NS 3 ml) 3 ml PER PROTOCOL IV ; Start 08/15/18 at 14:00 Ondansetron HCl (Zofran Inj) 4 mg Q6H PRN IV NAUSEA/VOMITING; Start 08/15/18 at 14:00 Acetaminophen (Tylenol Tab) 650 mg Q6H PRN PO .PAIN 1-3 OR TEMP; Start 08/15/18 at 14:00 Acetaminophen/ Hydrocodone Bitart ([place] (5/325)) 1 tab Q6H PRN PO .MOD PAIN 4- 6; Start 08/15/18 at 14:00 Acetaminophen/ Hydrocodone Bitart ([place] (5/325)) 2 tab Q6H PRN PO .SEVERE PAIN 7-10 Last administered on 08/17/18at 02:57; Admin Dose 2 TAB; Start 08/15/18 at 14:00 Docusate Sodium (Colace) 100 mg Q12H PRN PO .CONSTIPATION; Start 08/15/18 at 14:00 Magnesium Hydroxide (Milk Of Mag) 30 ml DAILY PRN PO .CONSTIPATION; Start 08/15/18 at 14:00 Bisacodyl (Dulcolax Supp) 10 mg DAILY PRN [place] .CONSTIPATION; Start 08/15/18 at 14:00 Pantoprazole (Protonix Iv) 40 mg DAILY@06 IV Last administered on 08/17/18at 05:10; Admin Dose 40 MG; Start 08/16/18 at 06:00 Cefazolin Sodium/ Dextrose 50 ml @ 100 mls/hr Q8 IVPB Last administered on 08/17/18at 05:10; Admin Dose 100 MLS/HR; Start 08/15/18 at 14:00 Alprazolam (Xanax) 1 mg BID PRN PO ANXIETY Last administered on 08/16/18at 21:51; Admin Dose 1 MG; Start 08/15/18 at 14:30 Hydromorphone HCl (Dilaudid) 1 mg Q4H PRN IV .SEVERE PAIN 7-10 Last administered on 08/17/18 09:29; Admin Dose 1 MG; Start 08/16/18 at 12:00 JHOANA CAMPA NP Aug 17, 2018 10:37
[2018-08-17] MEDS: ALPRAZOLAM 1 MG TAB PO PRN ×2 (11:12→20:50)
--- NOTE | 2018-08-17 11:26 | CONS ---
Consult Date/Type/Reason Admit Date/Time Aug 15, 2018 at 10:07 Initial Consult Date Date/Time of Note DATE: 08/17/18 TIME: 11:23 Subjective NO acute events - pt comfortable overall - in good fluid satus - no CP now - will monitor cliically - ECHO done - no clear veg by TTE per DR. Drake. ROS: No fever, no chills, no nausea, no vomiting, no diarrhea/constipation - better today No recent weight changes No chest pain, no PND, no orthopnea No dizziness, blurred vision No thirst, no heat or cold intolerance Objective Vitals Vital Signs Date Temp Pulse Resp B/P (MAP) Pulse Ox O2 O2 Flow FiO2 Time Delivery Rate 08/17/18 97.4 100 18 141/62 100 07:31 (88) 08/17/18 Room Air 04:31 Intake and Output 08/16/18 08/16/18 08/17/18 1515:00 23:00 07:00 IntakeIntake Total 880 ml 550 ml 180 ml OutputOutput Total 700 ml BalanceBalance 180 ml 550 ml 180 ml Exam General: WN/WD/NAD, AOx 3 HEENT: Unicetric/atraumatic/EOMI (follows commands) NECK: JVD elevated, no thyromegaly Lymph: no lymphadenopathy HEART: regular with no S3, II/ systolic murmur at apex, LUNGS: Coarse sounds ABD: soft, NT, ND, +BS : Intact Neuro: non focal SKIN: chronic changes EXT: trace edema Results/Medications Result Diagram: 08/17/18 0608/17/18 0603 Results 24 hrs Laboratory Tests Test 08/16/18 12:04 08/16/18 14:33 08/16/18 18:46 08/16/18 20:49 Urine Test NEGATIVE Urine Opiates Screen Positive Urine Barbiturates Negative Urine Amphetamines Negative Screen Urine Benzodiazepines Positive Screen Urine Cocaine Screen Negative Urine Cannabinoids Positive Activated > 180.0 *H 37.6 H 33.1 Partial Thromboplast Time Test 08/17/18 00:27 08/17/18 06:03 08/17/18 08:11 Troponin I < 0.012 < 0.012 White Blood Count 6.0 Red Blood Count 3.34 L Hemoglobin 9.4 L Hematocrit 29.4 L Mean Corpuscular Volume 88.0 Mean Corpuscular 28.1 L Hemoglobin Mean Corpuscular 32.0 Hemoglobin Concent Red Cell Distribution 14.5 Width Platelet Count 271 Mean Platelet Volume 9.4 Immature Granulocytes % 0.500 H Neutrophils % 54.8 Lymphocytes % 34.1 Monocytes % 7.8 Eosinophils % 2.3 Basophils % 0.5 Nucleated Red Blood 0.0 Cells % Immature Granulocytes # 0.030 Neutrophils # 3.3 Lymphocytes # 2.1 Monocytes # 0.5 Eosinophils # 0.1 Basophils # 0.0 Nucleated Red Blood 0.0 Cells # Sodium Level 138 Potassium Level 4.0 Chloride Level 104 Carbon Dioxide Level 27 Anion Gap 7 Blood Urea Nitrogen 13 Creatinine 0.59 Est Glomerular Filtrat > 60 Rate mL/min Glucose Level 146 # Calcium Level 8.4 Phosphorus Level 4.9 Magnesium Level 1.8 Activated > 180.0 *H Partial Thromboplast Time Home Meds Reported Medications Oxycodone Hcl* (IR) (Oxycodone Hcl*) 5 Mg Capsule, 10 MG PO TID PRN for PAIN, CAP 08/15/18 Alprazolam* (Xanax*) 1 Mg Tab, 1 MG PO BID PRN for ANXIETY, TAB 08/15/18 Medications Current Medications Heparin Sodium (Porcine) (Heparin (1000 Units/ml)) 9,100 unit PER PROTOCOL PRN IV aPTT<47 Last administered on 08/15/18at 12:07; Admin Dose 9,100 UNIT; Start 08/15/18 at 10:00 Heparin Sodium (Porcine) (Heparin (1000 Units/ml)) 4,500 unit PER PROTOCOL PRN IV aPTT<47-57 Last administered on 08/15/18at 19:11; Admin Dose 4,500 UNIT; Start 08/15/18 at 10:00 Heparin Sodium (Porcine) 250 ml @ 0 mls/hr PER PROTOCOL IV Last administered on 08/17/18at 01:08; Admin Dose 19 MLS/HR; Start 08/15/18 at 10:00 Morphine Sulfate (morphine) 2 mg Q4 PRN IV CRIES SCALE 5-7 Last administered on 08/16/18at 17:57; Admin Dose 2 MG; Start 08/15/18 at 12:00 IV Flush (NS 3 ml) 3 ml PER PROTOCOL IV ; Start 08/15/18 at 14:00 Ondansetron HCl (Zofran Inj) 4 mg Q6H PRN IV NAUSEA/VOMITING; Start 08/15/18 at 14:00 Acetaminophen (Tylenol Tab) 650 mg Q6H PRN PO .PAIN 1-3 OR TEMP; Start 08/15/18 at 14:00 Acetaminophen/ Hydrocodone Bitart ([place] (5/325)) 1 tab Q6H PRN PO .MOD PAIN 4- 6; Start 08/15/18 at 14:00 Acetaminophen/ Hydrocodone Bitart ([place] (5/325)) 2 tab Q6H PRN PO .SEVERE PAIN 7-10 Last administered on 08/17/18at 11:13; Admin Dose 2 TAB; Start 08/15/18 at 14:00 Docusate Sodium (Colace) 100 mg Q12H PRN PO .CONSTIPATION; Start 08/15/18 at 14:00 Magnesium Hydroxide (Milk Of Mag) 30 ml DAILY PRN PO .CONSTIPATION; Start 08/15/18 at 14:00 Bisacodyl (Dulcolax Supp) 10 mg DAILY PRN [place] .CONSTIPATION; Start 08/15/18 at 14:00 Pantoprazole (Protonix Iv) 40 mg DAILY@06 IV Last administered on 08/17/18at 05:10; Admin Dose 40 MG; Start 08/16/18 at 06:00 Cefazolin Sodium/ Dextrose 50 ml @ 100 mls/hr Q8 IVPB Last administered on 08/17/18at 05:10; Admin Dose 100 MLS/HR; Start 08/15/18 at 14:00 Alprazolam (Xanax) 1 mg BID PRN PO ANXIETY Last administered on 08/17/18at 11:12; Admin Dose 1 MG; Start 08/15/18 at 14:30 Hydromorphone HCl (Dilaudid) 1 mg Q4H PRN IV .SEVERE PAIN 7-10 Last administered on 08/17/18at 09:29; Admin Dose 1 MG; Start 08/16/18 at 12:00 Assessment/Plan Hospital Course (Demo Recall) 1. History of recently diagnosed endocarditis, assess for ongoing infection - pt had TTE done - no clear vegetaion noted. 2. Tachycardia, borderline consistent with sinus tachycardia. HR better now. 3. Hypertension, labile may be related to pain, currently improved, off of antihypertensives recently today. Con't to follow - better overall. 4. Deep venous thrombosis of the right extremity, likely secondary to PICC line that was in place. On Rx now. 5. Anemia- H/H stable - no bleeding now, 6. Psychiatric disorder. IVA MURRAY MD Aug 17, 2018 11:26
[2018-08-17 11:40] VITALS: BP 124/68; PULSE 94; RESP 19
--- NOTE | 2018-08-17 14:30 | CONS ---
Assessment/Plan Assessment/Plan Hospital Course (Demo Recall) Alert complaining of right upper extremity pain, no fevers overnight WBC 6 no shift no bands BUN 13 creatinine 0.59 Microbiology: Blood cultures negative Antimicrobials: Ancef Physical examination: Obese well-developed middle-aged woman who is alert in no distress. Head atraumatic normocephalic neck is supple chest rise symmetrical breath sounds clear heart: S1-S2 abdomen soft bowel sounds present extremities with right upper extremity edema Assessment: 1. Right upper extremity DVT 2. Resolving endocarditis 3. Obesity Plan: Stable, 2D echo reviewed, continue on current antibiotics for 2 more weeks, continue blood thinners Consultation Date/Type/Reason Admit Date/Time Aug 15, 2018 at 10:07 Initial Consult Date Type of Consult id Date/Time of Note DATE: 08/17/18 TIME: 14:30 Exam/Review of Systems Exam Vitals Vital Signs Date Temp Pulse Resp B/P (MAP) Pulse Ox O2 O2 Flow FiO2 Time Delivery Rate 08/17/18 98.0 94 19 124/68 100 11:40 (86) 08/17/18 Room Air 04:31 Intake and Output 08/16/18 08/16/18 08/17/18 1515:00 23:00 07:00 IntakeIntake Total 880 ml 550 ml 180 ml OutputOutput Total 700 ml BalanceBalance 180 ml 550 ml 180 ml Results Result Diagram: 08/17/18 0603 08/17/18 0603 Results 24hrs Laboratory Tests Test 08/16/18 14:33 08/16/18 18:46 08/16/18 20:49 08/17/18 00:27 Activated > 180.0 *H 37.6 H 33.1 Partial Thromboplast Time Troponin I < 0.012 Test 08/17/18 06:03 08/17/18 08:11 08/17/18 12:00 White Blood Count 6.0 Red Blood Count 3.34 L Hemoglobin 9.4 L Hematocrit 29.4 L Mean Corpuscular Volume 88.0 Mean Corpuscular 28.1 L Hemoglobin Mean Corpuscular 32.0 Hemoglobin Concent Red Cell Distribution 14.5 Width Platelet Count 271 Mean Platelet Volume 9.4 Immature Granulocytes % 0.500 H Neutrophils % 54.8 Lymphocytes % 34.1 Monocytes % 7.8 Eosinophils % 2.3 Basophils % 0.5 Nucleated Red Blood 0.0 Cells % Immature Granulocytes # 0.030 Neutrophils # 3.3 Lymphocytes # 2.1 Monocytes # 0.5 Eosinophils # 0.1 Basophils # 0.0 Nucleated Red Blood 0.0 Cells # Sodium Level 138 Potassium Level 4.0 Chloride Level 104 Carbon Dioxide Level 27 Anion Gap 7 Blood Urea Nitrogen 13 Creatinine 0.59 Est Glomerular Filtrat > 60 Rate mL/min Glucose Level 146 # Calcium Level 8.4 Phosphorus Level 4.9 Magnesium Level 1.8 Troponin I < 0.012 Activated > 180.0 *H Partial Thromboplast Time Iron Level 30 L Total Iron Binding 244 Capacity Percent Iron Saturation 12 L Ferritin 81.4 Medications Medication Current Medications Heparin Sodium (Porcine) (Heparin (1000 Units/ml)) 9,100 unit PER PROTOCOL PRN IV aPTT<47 Last administered on 08/15/18at 12:07; Admin Dose 9,100 UNIT; Start 08/15/18 at 10:00 Heparin Sodium (Porcine) (Heparin (1000 Units/ml)) 4,500 unit PER PROTOCOL PRN IV aPTT<47-57 Last administered on 08/15/18at 19:11; Admin Dose 4,500 UNIT; Start 08/15/18 at 10:00 Heparin Sodium (Porcine) 250 ml @ 0 mls/hr PER PROTOCOL IV Last administered on 08/17/18at 01:08; Admin Dose 19 MLS/HR; Start 08/15/18 at 10:00 Morphine Sulfate (morphine) 2 mg Q4 PRN IV CRIES SCALE 5-7 Last administered on 08/16/18at 17:57; Admin Dose 2 MG; Start 08/15/18 at 12:00 IV Flush (NS 3 ml) 3 ml PER PROTOCOL IV ; Start 08/15/18 at 14:00 Ondansetron HCl (Zofran Inj) 4 mg Q6H PRN IV NAUSEA/VOMITING; Start 08/15/18 at 14:00 Acetaminophen (Tylenol Tab) 650 mg Q6H PRN PO .PAIN 1-3 OR TEMP; Start 08/15/18 at 14:00 Acetaminophen/ Hydrocodone Bitart ([place] (5/325)) 1 tab Q6H PRN PO .MOD PAIN 4- 6; Start 08/15/18 at 14:00 Acetaminophen/ Hydrocodone Bitart ([place] (5/325)) 2 tab Q6H PRN PO .SEVERE PAIN 7-10 Last administered on 08/17/18 11:13; Admin Dose 2 TAB; Start 08/15/18 at 14:00 Docusate Sodium (Colace) 100 mg Q12H PRN PO .CONSTIPATION; Start 08/15/18 at 14:00 Magnesium Hydroxide (Milk Of Mag) 30 ml DAILY PRN PO .CONSTIPATION; Start 08/15/18 at 14:00 Bisacodyl (Dulcolax Supp) 10 mg DAILY PRN [place] .CONSTIPATION; Start 08/15/18 at 14:00 Pantoprazole (Protonix Iv) 40 mg DAILY@06 IV Last administered on 08/17/18 05:10; Admin Dose 40 MG; Start 08/16/18 at 06:00 Cefazolin Sodium/ Dextrose 50 ml @ 100 mls/hr Q8 IVPB Last administered on 08/17/18 05:10; Admin Dose 100 MLS/HR; Start 08/15/18 at 14:00 Alprazolam (Xanax) 1 mg BID PRN PO ANXIETY Last administered on 08/17/18at 11:12; Admin Dose 1 MG; Start 08/15/18 at 14:30 Hydromorphone HCl (Dilaudid) 1 mg Q4H PRN IV .SEVERE PAIN 7-10 Last administered on 08/17/18at 13:45; Admin Dose 1 MG; Start 08/16/18 at 12:00 BLANCA LR NP Aug 17, 2018 14:30
--- NOTE | 2018-08-17 14:39 | CONS ---
Assessment/Plan Assessment/Plan Hospital Course (Demo Recall) #RUE DVT - related to prior PICC line #CHF #endocarditis -continue heparin gtt fo now -after 48 hours of heparin gtt would change to eliquis -will perform hyper coagulable workup as an out patient, especially given her family history of clotting -continue antibiotics for endocarditis Consultation Date/Type/Reason Admit Date/Time Aug 15, 2018 at 10:07 Date of Consultation: Aug 17, 2018 Type of Consult hematology Reason for Consultation upper extremity DVT Requesting Provider: JHOANA CAMPA NP Date/Time of Note DATE: 08/17/18 TIME: 14:32 Hx of Present Illness 32-year-old female with CHF and recent history of gram-positive cocci endocarditis and reported septic emboli to her lung who was recently admitted and discharged on intermediate antibiotics July 18, 2018. PT was discharged with a PICC line and scheduled to take antibiotics (Ancef) for total of 6 weeks. 5 to 6 days prior to admission pt states she had pain right upper extremity. Pt returned to [facility] where her PICC line was placed, and it was removed and moved to [facility]. The pain in RUE did not resolve. 08/15/18 Pt presented to [facility] where a RUE ultrasound was done which revealed Extensive DVT in the right upper extremity. Pt has since been started on a heparin gtt. Pt states he mother told her they have history of clots in her family. She also states she had a clot her in heart after her c sxn 3 years ago. Constitutional: no complaints, poor po Eyes: no complaints ENT: no complaints Respiratory: no complaints Cardiovascular: no complaints Gastrointestinal: no complaints Genitourinary: no complaints Musculoskeletal: other (pain in RUE) Skin: no complaints Neurologic: no complaints Past Medical History CHF h/o endocarditis obesity Home Meds Reported Medications Oxycodone Hcl* (IR) (Oxycodone Hcl*) 5 Mg Capsule, 10 MG PO TID PRN for PAIN, CAP 08/15/18 Alprazolam* (Xanax*) 1 Mg Tab, 1 MG PO BID PRN for ANXIETY, TAB 08/15/18 Medications Current Medications Heparin Sodium (Porcine) (Heparin (1000 Units/ml)) 9,100 unit PER PROTOCOL PRN IV aPTT<47 Last administered on 08/15/18at 12:07; Admin Dose 9,100 UNIT; Start 08/15/18 at 10:00 Heparin Sodium (Porcine) (Heparin (1000 Units/ml)) 4,500 unit PER PROTOCOL PRN IV aPTT<47-57 Last administered on 08/15/18at 19:11; Admin Dose 4,500 UNIT; Start 08/15/18 at 10:00 Heparin Sodium (Porcine) 250 ml @ 0 mls/hr PER PROTOCOL IV Last administered on 08/17/18at 01:08; Admin Dose 19 MLS/HR; Start 08/15/18 at 10:00 Morphine Sulfate (morphine) 2 mg Q4 PRN IV CRIES SCALE 5-7 Last administered on 08/16/18at 17:57; Admin Dose 2 MG; Start 08/15/18 at 12:00 IV Flush (NS 3 ml) 3 ml PER PROTOCOL IV ; Start 08/15/18 at 14:00 Ondansetron HCl (Zofran Inj) 4 mg Q6H PRN IV NAUSEA/VOMITING; Start 08/15/18 at 14:00 Acetaminophen (Tylenol Tab) 650 mg Q6H PRN PO .PAIN 1-3 OR TEMP; Start 08/15/18 at 14:00 Acetaminophen/ Hydrocodone Bitart ([place] (5/325)) 1 tab Q6H PRN PO .MOD PAIN 4- 6; Start 08/15/18 at 14:00 Acetaminophen/ Hydrocodone Bitart ([place] (5/325)) 2 tab Q6H PRN PO .SEVERE PAIN 7-10 Last administered on 08/17/18at 11:13; Admin Dose 2 TAB; Start 08/15/18 at 14:00 Docusate Sodium (Colace) 100 mg Q12H PRN PO .CONSTIPATION; Start 08/15/18 at 14:00 Magnesium Hydroxide (Milk Of Mag) 30 ml DAILY PRN PO .CONSTIPATION; Start 08/15/18 at 14:00 Bisacodyl (Dulcolax Supp) 10 mg DAILY PRN [place] .CONSTIPATION; Start 08/15/18 at 14:00 Pantoprazole (Protonix Iv) 40 mg DAILY@06 IV Last administered on 08/17/18at 05:10; Admin Dose 40 MG; Start 08/16/18 at 06:00 Cefazolin Sodium/ Dextrose 50 ml @ 100 mls/hr Q8 IVPB Last administered on 08/17/18at 05:10; Admin Dose 100 MLS/HR; Start 08/15/18 at 14:00 Alprazolam (Xanax) 1 mg BID PRN PO ANXIETY Last administered on 08/17/18at 11:12; Admin Dose 1 MG; Start 08/15/18 at 14:30 Hydromorphone HCl (Dilaudid) 1 mg Q4H PRN IV .SEVERE PAIN 7-10 Last administered on 08/17/18at 13:45; Admin Dose 1 MG; Start 08/16/18 at 12:00 Allergies: Coded Allergies: No Known Allergy (Unverified , 08/15/18) Past Surgical History Past Surgical Hx: no surgical history Family History Significant Family History: no pertinent family hx Social History Alcohol Use: none Smoking Status: Former smoker Drug Use: none Exam/Review of Systems Exam Vitals Vital Signs Date Temp Pulse Resp B/P (MAP) Pulse Ox O2 O2 Flow FiO2 Time Delivery Rate 08/17/18 98.0 94 19 124/68 100 11:40 (86) 08/17/18 Room Air 04:31 Intake and Output 08/16/18 08/16/18 08/17/18 1414:59 22:59 06:59 IntakeIntake Total 880 ml 550 ml 180 ml OutputOutput Total 700 ml BalanceBalance 180 ml 550 ml 180 ml Constitutional: alert, oriented Psych: no complaints Head: normocephalic Eyes: nl conjunctiva ENMT: nl external ears & nose Neck: supple Respiratory: clear to auscultation Cardiovascular: regular rate and rhythm Gastrointestinal: soft Musculoskeletal: other (PICC in LUE. tenderness in RUE) Results Result Diagram: 08/17/18 0603 08/17/18 0603 Results 24hrs Laboratory Tests Test 08/16/18 14:33 08/16/18 18:46 08/16/18 20:49 08/17/18 00:27 Activated > 180.0 *H 37.6 H 33.1 Partial Thromboplast Time Troponin I < 0.012 Test 08/17/18 06:03 08/17/18 08:11 08/17/18 12:00 White Blood Count 6.0 Red Blood Count 3.34 L Hemoglobin 9.4 L Hematocrit 29.4 L Mean Corpuscular Volume 88.0 Mean Corpuscular 28.1 L Hemoglobin Mean Corpuscular 32.0 Hemoglobin Concent Red Cell Distribution 14.5 Width Platelet Count 271 Mean Platelet Volume 9.4 Immature Granulocytes % 0.500 H Neutrophils % 54.8 Lymphocytes % 34.1 Monocytes % 7.8 Eosinophils % 2.3 Basophils % 0.5 Nucleated Red Blood 0.0 Cells % Immature Granulocytes # 0.030 Neutrophils # 3.3 Lymphocytes # 2.1 Monocytes # 0.5 Eosinophils # 0.1 Basophils # 0.0 Nucleated Red Blood 0.0 Cells # Sodium Level 138 Potassium Level 4.0 Chloride Level 104 Carbon Dioxide Level 27 Anion Gap 7 Blood Urea Nitrogen 13 Creatinine 0.59 Est Glomerular Filtrat > 60 Rate mL/min Glucose Level 146 # Calcium Level 8.4 Phosphorus Level 4.9 Magnesium Level 1.8 Troponin I < 0.012 Activated > 180.0 *H Partial Thromboplast Time Iron Level 30 L Total Iron Binding 244 Capacity Percent Iron Saturation 12 L Ferritin 81.4 Medications Medication Current Medications Heparin Sodium (Porcine) (Heparin (1000 Units/ml)) 9,100 unit PER PROTOCOL PRN IV aPTT<47 Last administered on 08/15/18at 12:07; Admin Dose 9,100 UNIT; Start 08/15/18 at 10:00 Heparin Sodium (Porcine) (Heparin (1000 Units/ml)) 4,500 unit PER PROTOCOL PRN IV aPTT<47-57 Last administered on 08/15/18at 19:11; Admin Dose 4,500 UNIT; Start 08/15/18 at 10:00 Heparin Sodium (Porcine) 250 ml @ 0 mls/hr PER PROTOCOL IV Last administered on 08/17/18at 01:08; Admin Dose 19 MLS/HR; Start 08/15/18 at 10:00 Morphine Sulfate (morphine) 2 mg Q4 PRN IV CRIES SCALE 5-7 Last administered on 08/16/18at 17:57; Admin Dose 2 MG; Start 08/15/18 at 12:00 IV Flush (NS 3 ml) 3 ml PER PROTOCOL IV ; Start 08/15/18 at 14:00 Ondansetron HCl (Zofran Inj) 4 mg Q6H PRN IV NAUSEA/VOMITING; Start 08/15/18 at 14:00 Acetaminophen (Tylenol Tab) 650 mg Q6H PRN PO .PAIN 1-3 OR TEMP; Start 08/15/18 at 14:00 Acetaminophen/ Hydrocodone Bitart ([place] (5/325)) 1 tab Q6H PRN PO .MOD PAIN 4- 6; Start 08/15/18 at 14:00 Acetaminophen/ Hydrocodone Bitart ([place] (5/325)) 2 tab Q6H PRN PO .SEVERE PAIN 7-10 Last administered on 08/17/18at 11:13; Admin Dose 2 TAB; Start 08/15/18 at 14:00 Docusate Sodium (Colace) 100 mg Q12H PRN PO .CONSTIPATION; Start 08/15/18 at 14:00 Magnesium Hydroxide (Milk Of Mag) 30 ml DAILY PRN PO .CONSTIPATION; Start 08/15/18 at 14:00 Bisacodyl (Dulcolax Supp) 10 mg DAILY PRN [place] .CONSTIPATION; Start 08/15/18 at 14:00 Pantoprazole (Protonix Iv) 40 mg DAILY@06 IV Last administered on 08/17/18at 05:10; Admin Dose 40 MG; Start 08/16/18 at 06:00 Cefazolin Sodium/ Dextrose 50 ml @ 100 mls/hr Q8 IVPB Last administered on 08/17/18at 05:10; Admin Dose 100 MLS/HR; Start 08/15/18 at 14:00 Alprazolam (Xanax) 1 mg BID PRN PO ANXIETY Last administered on 08/17/18at 11:12; Admin Dose 1 MG; Start 08/15/18 at 14:30 Hydromorphone HCl (Dilaudid) 1 mg Q4H PRN IV .SEVERE PAIN 7-10 Last administered on 08/17/18at 13:45; Admin Dose 1 MG; Start 08/16/18 at 12:00 ZHANE OMER M.D. Aug 17, 2018 14:39
[2018-08-17 15:46] VITALS: BP 118/56; PULSE 103; RESP 18
[2018-08-17 20:29] VITALS: BP 140/70; PULSE 102; RESP 18
[2018-08-18] VITALS (7 sets, daily range): BP systolic 120–142; BP diastolic 60–95; PULSE 99–107; RESP 17–20
[2018-08-18] MEDS: morphine 2 MG INJ IV PRN ×5 (01:37→22:43)
[2018-08-18] MEDS: HYDROmorphONE 0.5 MG/0.5 ML SYG IV PRN ×5 (04:15→21:08)
[2018-08-18] MEDS: PANTOPRAZOLE (EC) 40 MG TAB PO SCH (06:04)
[2018-08-18] MEDS: CEFAZOLIN 2 GM/50 ML (PMX) 50 ML IVPB SCH ×3 (06:04→21:54)
[2018-08-18] MEDS: HYDROCODONE/APAP (5/325) TAB PO PRN (06:05)
[2018-08-18] MEDS: ALPRAZOLAM 1 MG TAB PO PRN ×2 (09:35→21:54)
--- NOTE | 2018-08-18 10:14 | PN ---
Date/Time of Note Date/Time of Note DATE: 08/18/18 TIME: 10:12 Assessment/Plan VTE Prophylaxis Risk score (from Nsg)>0 risk: 6 SCD applied (from Nsg): Yes Pharmacological prophylaxis: heparin Lines/Catheters IV Catheter Type (from Nrsg): PICC Line Central line still needed: Yes Urinary Cath still in place: No Assessment/Plan Hospital Course SUBJECTIVE: Continues to complains of right upper extremity and right breast pain. Remains on heparin gtt. OBJECTIVE: Physical Exam General: Morbidly obese, 32 year-old female lying in bed in no apparent distress. HEENT: Normocephalic, atraumatic. Eyes: Anicteric sclerae, conjunctivae clear. ENT: Nasal septum midline, oral mucosa moist. Neck supple, no JVD noticed. Respiratory: Bilaterally diminished breath sounds. No use of accessory muscles of respiration. No adventitious breath sounds. Cardiovascular: S1, S2 heard. Tachycardia. Abdomen: Soft, nontender, and nondistended. Bowel sounds positive in all 4 quadrants. Genitourinary: Deferred. Extremities: No cyanosis, no clubbing. Right upper extremity edema. Peripheral pulses palpable. Edema and warmth in the right biceps all the way into the axilla. Neurologic: Cranial nerves II through XII grossly intact. The patient is awake, alert, and oriented. Skin: Normal skin turgor. Multiple tattoos. Labs & Vitals per chart ASSESSMENT & PLAN 32-year-old F with comorbidities including morbid obesity (BMI>42 kg/m), reported history of endocarditis, and anxiety disorder who was recently admitted to [facility] and was discharged home on July 18, 2018 with a PICC line for antibiotics for total of 6 weeks. The patient returned to [place] [facility] with chief complaint of right upper extremity pain at the site of PICC with DVT on the RUE and her PICC was replaced on LUE; transferred to [facility] for because of insurance reasons. 1. Extensive DVT of the right upper extremity. On heparin drip. Hematology following. 2. Reported history of endocarditis. Continue Ancef as per ID recommendations. Cardiology following 2D echo results noted. 3. Morbid obesity. BMI more than 42 kg/m. Advised weight reduction. 4. Anxiety disorder. Continue PRN anxiolytics. 5. Normocytic anemia. Etiology unclear. Monitor H&H closely. 6. Fluids, electrolytes, and nutrition. Regular diet. 7. DVT prophylaxis. On heparin drip. 8. Plan. Continue antibiotics as per ID. Switching anticoagulation to oral agents will be deferred to hematology. Transfer the patient to medical surgical floor. The patient was seen in collaboration with Dr. Herrera. Result Diagram: 08/18/1815 08/18/18 0615 Results 24hrs Laboratory Tests Test 08/17/18 12:00 08/17/18 13:50 08/17/18 22:23 08/18/18 06:15 Iron Level 30 L Total Iron Binding 244 Capacity Percent Iron Saturation 12 L Ferritin 81.4 Activated 35.9 H 99.2 *H 89.6 *H Partial Thromboplast Time Troponin I < 0.012 White Blood Count 7.1 Red Blood Count 3.12 L Hemoglobin 8.6 L Hematocrit 27.9 L Mean Corpuscular Volume 89.4 Mean Corpuscular 27.6 L Hemoglobin Mean Corpuscular 30.8 L Hemoglobin Concent Red Cell Distribution 14.6 H Width Platelet Count 290 Mean Platelet Volume 9.5 Immature Granulocytes % 0.100 Neutrophils % 50.6 Lymphocytes % 38.9 Monocytes % 7.1 Eosinophils % 2.7 Basophils % 0.6 Nucleated Red Blood 0.0 Cells % Immature Granulocytes # 0.010 Neutrophils # 3.6 Lymphocytes # 2.7 Monocytes # 0.5 Eosinophils # 0.2 Basophils # 0.0 Nucleated Red Blood 0.0 Cells # Sodium Level 140 Potassium Level 4.2 Chloride Level 106 Carbon Dioxide Level 27 Anion Gap 7 Blood Urea Nitrogen 12 Creatinine 0.59 Est Glomerular Filtrat > 60 Rate mL/min Glucose Level 95 # Calcium Level 8.7 Phosphorus Level 4.5 Magnesium Level 1.7 Exam/Review of Systems Exam Vitals Vital Signs Date Temp Pulse Resp B/P (MAP) Pulse Ox O2 O2 Flow FiO2 Time Delivery Rate 08/18/18 98.0 101 18 136/95 98 Room Air 07:44 (109) Intake and Output 08/17/18 08/17/18 08/18/18 1515:00 23:00 07:00 IntakeIntake Total 1000 ml 800 ml 900 ml BalanceBalance 1000 ml 800 ml 900 ml Results Results 24hrs Laboratory Tests Test 08/17/18 12:00 08/17/18 13:50 08/17/18 22:23 08/18/18 06:15 Iron Level 30 L Total Iron Binding 244 Capacity Percent Iron Saturation 12 L Ferritin 81.4 Activated 35.9 H 99.2 *H 89.6 *H Partial Thromboplast Time Troponin I < 0.012 White Blood Count 7.1 Red Blood Count 3.12 L Hemoglobin 8.6 L Hematocrit 27.9 L Mean Corpuscular Volume 89.4 Mean Corpuscular 27.6 L Hemoglobin Mean Corpuscular 30.8 L Hemoglobin Concent Red Cell Distribution 14.6 H Width Platelet Count 290 Mean Platelet Volume 9.5 Immature Granulocytes % 0.100 Neutrophils % 50.6 Lymphocytes % 38.9 Monocytes % 7.1 Eosinophils % 2.7 Basophils % 0.6 Nucleated Red Blood 0.0 Cells % Immature Granulocytes # 0.010 Neutrophils # 3.6 Lymphocytes # 2.7 Monocytes # 0.5 Eosinophils # 0.2 Basophils # 0.0 Nucleated Red Blood 0.0 Cells # Sodium Level 140 Potassium Level 4.2 Chloride Level 106 Carbon Dioxide Level 27 Anion Gap 7 Blood Urea Nitrogen 12 Creatinine 0.59 Est Glomerular Filtrat > 60 Rate mL/min Glucose Level 95 # Calcium Level 8.7 Phosphorus Level 4.5 Magnesium Level 1.7 Medications Medication Current Medications Heparin Sodium (Porcine) (Heparin (1000 Units/ml)) 9,100 unit PER PROTOCOL PRN IV aPTT<47 Last administered on 08/15/18at 12:07; Admin Dose 9,100 UNIT; Start 08/15/18 at 10:00 Heparin Sodium (Porcine) (Heparin (1000 Units/ml)) 4,500 unit PER PROTOCOL PRN IV aPTT<47-57 Last administered on 08/15/18at 19:11; Admin Dose 4,500 UNIT; Start 08/15/18 at 10:00 Heparin Sodium (Porcine) 250 ml @ 0 mls/hr PER PROTOCOL IV Last administered on 08/17/18at 22:19; Admin Dose 15.5 MLS/HR; Start 08/15/18 at 10:00 Morphine Sulfate (morphine) 2 mg Q4 PRN IV CRIES SCALE 5-7 Last administered on 08/18/18at 06:18; Admin Dose 2 MG; Start 08/15/18 at 12:00 IV Flush (NS 3 ml) 3 ml PER PROTOCOL IV ; Start 08/15/18 at 14:00 Ondansetron HCl (Zofran Inj) 4 mg Q6H PRN IV NAUSEA/VOMITING; Start 08/15/18 at 14:00 Acetaminophen (Tylenol Tab) 650 mg Q6H PRN PO .PAIN 1-3 OR TEMP; Start 08/15/18 at 14:00 Acetaminophen/ Hydrocodone Bitart ([place] (5/325)) 1 tab Q6H PRN PO .MOD PAIN 4- 6; Start 08/15/18 at 14:00 Acetaminophen/ Hydrocodone Bitart ([place] (5/325)) 2 tab Q6H PRN PO .SEVERE PAIN 7-10 Last administered on 08/18/18at 06:05; Admin Dose 2 TAB; Start 08/15/18 at 14:00 Docusate Sodium (Colace) 100 mg Q12H PRN PO .CONSTIPATION; Start 08/15/18 at 14:00 Magnesium Hydroxide (Milk Of Mag) 30 ml DAILY PRN PO .CONSTIPATION; Start 08/15/18 at 14:00 Bisacodyl (Dulcolax Supp) 10 mg DAILY PRN [place] .CONSTIPATION; Start 08/15/18 at 14:00 Cefazolin Sodium/ Dextrose 50 ml @ 100 mls/hr Q8 IVPB Last administered on 08/18/18at 06:04; Admin Dose 100 MLS/HR; Start 08/15/18 at 14:00 Alprazolam (Xanax) 1 mg BID PRN PO ANXIETY Last administered on 08/18/18at 09:35; Admin Dose 1 MG; Start 08/15/18 at 14:30 Hydromorphone HCl (Dilaudid) 1 mg Q4H PRN IV .SEVERE PAIN 7-10 Last administered on 08/18/18at 08:45; Admin Dose 1 MG; Start 08/16/18 at 12:00 Pantoprazole (Protonix Tab) 40 mg DAILY@06 PO Last administered on 08/18/18 06:04; Admin Dose 40 MG; Start 08/18/18 at 06:00 JHOANA CAMPA NP Aug 18, 2018 10:14
--- NOTE | 2018-08-18 12:19 | CONS ---
Assessment/Plan Assessment/Plan Hospital Course (Demo Recall) IMPRESSION: 1. History of recently diagnosed endocarditis, assess for ongoing infection.- Bld cx remain NTD and TTE was without sig valvular findings this admit 2. Tachycardia, borderline consistent with sinus tachycardia-ongoing mild 3. Hypertension, labile may be related to pain, currently improved, off of antihypertensives recently today. 4. Deep venous thrombosis of the right extremity, likely secondary to PICC line that was in place. 5. Anemia. 6. Psychiatric disorder. Recc: -Being transferred to [facility]-surg -serial ecg's -f/u records from [place] -Continue abx's and f/u cx data closely -Contineu heparin to ? Eliquis for DVT -For ongoing tachycardia will consider low dose BB to improve patient comfort Consultation Date/Type/Reason Admit Date/Time Aug 15, 2018 at 10:07 Initial Consult Date 08/17/18 Type of Consult Cardiology Reason for Consultation endocarditis Requesting Provider: JHOANA CAMPA NP Date/Time of Note DATE: 08/18/18 TIME: 12:15 Exam/Review of Systems Vital Signs Vitals Vital Signs Date Temp Pulse Resp B/P (MAP) Pulse Ox O2 O2 Flow FiO2 Time Delivery Rate 08/18/18 98.1 104 18 120/60 100 Room Air 11:22 (80) Intake and Output 08/17/18 08/17/18 08/18/18 1515:00 23:00 07:00 IntakeIntake Total 1000 ml 800 ml 900 ml BalanceBalance 1000 ml 800 ml 900 ml Exam Exam Review of Systems: CONSTITUTIONAL: No fevers, chills. PULMONARY: No sob CARDIOVASCULAR: No chest pain/palpitations GASTROINTESTINAL: No nausea/vomiting. GENITOURINARY: No hematuria/dysuria. MUSCULOSKELETAL: No myagias/arthalgias. PSYCHIATRIC: The patient denies depression. NEUROLOGIC: No weakness Constitutional: alert Psych: no complaints Head: normocephalic ENMT: mucosa pink and moist Neck: supple, jvd (8 cm water) Respiratory: clear to auscultation Cardiovascular: other (tachycardic, regular rhythm) Gastrointestinal: soft, non-tender Musculoskeletal: muscle tone (normal) Extremities: edema (none) Neurological: other (No focal deficits) Labs Result Diagram: 7/10/19 0615 7/10/19 0615 Results 24hrs Laboratory Tests Test 08/17/18 13:50 08/17/18 22:23 08/18/18 06:15 Activated Partial Thromboplast Time 35.9 H 99.2 *H 89.6 *H Troponin I < 0.012 White Blood Count 7.1 Red Blood Count 3.12 L Hemoglobin 8.6 L Hematocrit 27.9 L Mean Corpuscular Volume 89.4 Mean Corpuscular Hemoglobin 27.6 L Mean Corpuscular Hemoglobin Concent 30.8 L Red Cell Distribution Width 14.6 H Platelet Count 290 Mean Platelet Volume 9.5 Immature Granulocytes % 0.100 Neutrophils % 50.6 Lymphocytes % 38.9 Monocytes % 7.1 Eosinophils % 2.7 Basophils % 0.6 Nucleated Red Blood Cells % 0.0 Immature Granulocytes # 0.010 Neutrophils # 3.6 Lymphocytes # 2.7 Monocytes # 0.5 Eosinophils # 0.2 Basophils # 0.0 Nucleated Red Blood Cells # 0.0 Sodium Level 140 Potassium Level 4.2 Chloride Level 106 Carbon Dioxide Level 27 Anion Gap 7 Blood Urea Nitrogen 12 Creatinine 0.59 Est Glomerular Filtrat Rate mL/min > 60 Glucose Level 95 # Calcium Level 8.7 Phosphorus Level 4.5 Magnesium Level 1.7 Medications Medications Current Medications Heparin Sodium (Porcine) (Heparin (1000 Units/ml)) 9,100 unit PER PROTOCOL PRN IV aPTT<47 Last administered on 08/15/18at 12:07; Admin Dose 9,100 UNIT; Start 08/15/18 at 10:00 Heparin Sodium (Porcine) (Heparin (1000 Units/ml)) 4,500 unit PER PROTOCOL PRN IV aPTT<47-57 Last administered on 08/15/18at 19:11; Admin Dose 4,500 UNIT; Start 08/15/18 at 10:00 Heparin Sodium (Porcine) 250 ml @ 0 mls/hr PER PROTOCOL IV Last administered on 08/17/18at 22:19; Admin Dose 15.5 MLS/HR; Start 08/15/18 at 10:00 Morphine Sulfate (morphine) 2 mg Q4 PRN IV CRIES SCALE 5-7 Last administered on 08/18/18at 11:31; Admin Dose 2 MG; Start 08/15/18 at 12:00 IV Flush (NS 3 ml) 3 ml PER PROTOCOL IV ; Start 08/15/18 at 14:00 Ondansetron HCl (Zofran Inj) 4 mg Q6H PRN IV NAUSEA/VOMITING; Start 08/15/18 at 14:00 Acetaminophen (Tylenol Tab) 650 mg Q6H PRN PO .PAIN 1-3 OR TEMP; Start 08/15/18 at 14:00 Acetaminophen/ Hydrocodone Bitart ([place] (5/325)) 1 tab Q6H PRN PO .MOD PAIN 4- 6; Start 08/15/18 at 14:00 Docusate Sodium (Colace) 100 mg Q12H PRN PO .CONSTIPATION; Start 08/15/18 at 14:00 Magnesium Hydroxide (Milk Of Mag) 30 ml DAILY PRN PO .CONSTIPATION; Start 08/15/18 at 14:00 Bisacodyl (Dulcolax Supp) 10 mg DAILY PRN [place] .CONSTIPATION; Start 08/15/18 at 14:00 Cefazolin Sodium/ Dextrose 50 ml @ 100 mls/hr Q8 IVPB Last administered on 11/27at 06:04; Admin Dose 100 MLS/HR; Start 08/15/18 at 14:00 Alprazolam (Xanax) 1 mg BID PRN PO ANXIETY Last administered on 08/18/18at 09:35; Admin Dose 1 MG; Start 08/15/18 at 14:30 Hydromorphone HCl (Dilaudid) 1 mg Q4H PRN IV .SEVERE PAIN 7-10 Last administered on 08/18/18at 08:45; Admin Dose 1 MG; Start 08/16/18 at 12:00 Pantoprazole (Protonix Tab) 40 mg DAILY@06 PO Last administered on 08/18/18at 06:04; Admin Dose 40 MG; Start 08/18/18 at 06:00 Acetaminophen/ Hydrocodone Bitart ([place] (10/325)) 1 tab Q4H PRN PO MODERATE PAIN LEVEL 4-6; Start 08/18/18 at 11:00 KI PEACE Aug 18, 2018 12:19
[2018-08-18] MEDS: HYDROCODONE/APAP (10/325) TAB PO PRN ×2 (14:35→18:40)
--- NOTE | 2018-08-18 14:35 | CONS ---
Assessment/Plan Assessment/Plan Hospital Course (Demo Recall) Alert, feels good, no fevers overnight Microbiology: Blood cultures negative Antimicrobials: Ancef Physical examination: Obese well-developed middle-aged woman who is alert in no distress. Head atraumatic normocephalic neck is supple chest rise symmetrical breath sounds clear heart: S1-S2 abdomen soft bowel sounds present extremities with right upper extremity edema Assessment: 1. Right upper extremity DVT 2. TV endocarditis 3. Obesity 4. History of MSSA bacteremia 07/12/18 Plan: Stable, continue on current antibiotics to complete 6 weeks Consultation Date/Type/Reason Admit Date/Time Aug 15, 2018 at 10:07 Initial Consult Date Type of Consult id Requesting Provider: JHOANA CAMPA NP Date/Time of Note DATE: 08/18/18 TIME: 14:34 Exam/Review of Systems Exam Vitals Vital Signs Date Temp Pulse Resp B/P (MAP) Pulse Ox O2 O2 Flow FiO2 Time Delivery Rate 08/18/18 98.2 107 17 142/85 100 Room Air 12:42 (104) Intake and Output 08/17/18 08/17/18 08/18/18 1515:00 23:00 07:00 IntakeIntake Total 1000 ml 800 ml 900 ml BalanceBalance 1000 ml 800 ml 900 ml Results Result Diagram: 08/18/18 0615 08/18/18 0615 Results 24hrs Laboratory Tests Test 08/17/18 22:23 08/18/18 06:15 Activated Partial Thromboplast Time 99.2 *H 89.6 *H White Blood Count 7.1 Red Blood Count 3.12 L Hemoglobin 8.6 L Hematocrit 27.9 L Mean Corpuscular Volume 89.4 Mean Corpuscular Hemoglobin 27.6 L Mean Corpuscular Hemoglobin Concent 30.8 L Red Cell Distribution Width 14.6 H Platelet Count 290 Mean Platelet Volume 9.5 Immature Granulocytes % 0.100 Neutrophils % 50.6 Lymphocytes % 38.9 Monocytes % 7.1 Eosinophils % 2.7 Basophils % 0.6 Nucleated Red Blood Cells % 0.0 Immature Granulocytes # 0.010 Neutrophils # 3.6 Lymphocytes # 2.7 Monocytes # 0.5 Eosinophils # 0.2 Basophils # 0.0 Nucleated Red Blood Cells # 0.0 Sodium Level 140 Potassium Level 4.2 Chloride Level 106 Carbon Dioxide Level 27 Anion Gap 7 Blood Urea Nitrogen 12 Creatinine 0.59 Est Glomerular Filtrat Rate mL/min > 60 Glucose Level 95 # Calcium Level 8.7 Phosphorus Level 4.5 Magnesium Level 1.7 Medications Medication Current Medications Heparin Sodium (Porcine) (Heparin (1000 Units/ml)) 9,100 unit PER PROTOCOL PRN IV aPTT<47 Last administered on 08/15/18at 12:07; Admin Dose 9,100 UNIT; Start 08/15/18 at 10:00 Heparin Sodium (Porcine) (Heparin (1000 Units/ml)) 4,500 unit PER PROTOCOL PRN IV aPTT<47-57 Last administered on 08/15/18at 19:11; Admin Dose 4,500 UNIT; Start 08/15/18 at 10:00 Heparin Sodium (Porcine) 250 ml @ 0 mls/hr PER PROTOCOL IV Last administered on 08/17/18at 22:19; Admin Dose 15.5 MLS/HR; Start 08/15/18 at 10:00 Morphine Sulfate (morphine) 2 mg Q4 PRN IV CRIES SCALE 5-7 Last administered on 08/18/18at 11:31; Admin Dose 2 MG; Start 08/15/18 at 12:00 IV Flush (NS 3 ml) 3 ml PER PROTOCOL IV ; Start 08/15/18 at 14:00 Ondansetron HCl (Zofran Inj) 4 mg Q6H PRN IV NAUSEA/VOMITING; Start 08/15/18 at 14:00 Acetaminophen (Tylenol Tab) 650 mg Q6H PRN PO .PAIN 1-3 OR TEMP; Start 08/15/18 at 14:00 Acetaminophen/ Hydrocodone Bitart ([place] (5/325)) 1 tab Q6H PRN PO .MOD PAIN 4- 6; Start 08/15/18 at 14:00 Docusate Sodium (Colace) 100 mg Q12H PRN PO .CONSTIPATION; Start 08/15/18 at 14:00 Magnesium Hydroxide (Milk Of Mag) 30 ml DAILY PRN PO .CONSTIPATION; Start 08/15/18 at 14:00 Bisacodyl (Dulcolax Supp) 10 mg DAILY PRN [place] .CONSTIPATION; Start 08/15/18 at 14:00 Cefazolin Sodium/ Dextrose 50 ml @ 100 mls/hr Q8 IVPB Last administered on 08/18/18at 14:26; Admin Dose 100 MLS/HR; Start 08/15/18 at 14:00 Alprazolam (Xanax) 1 mg BID PRN PO ANXIETY Last administered on 08/18/18at 09:35; Admin Dose 1 MG; Start 08/15/18 at 14:30 Hydromorphone HCl (Dilaudid) 1 mg Q4H PRN IV .SEVERE PAIN 7-10 Last administered on 08/18/18at 12:50; Admin Dose 1 MG; Start 08/16/18 at 12:00 Pantoprazole (Protonix Tab) 40 mg DAILY@06 PO Last administered on 08/18/18at 06:04; Admin Dose 40 MG; Start 08/18/18 at 06:00 Acetaminophen/ Hydrocodone Bitart ([place] ()) 1 tab Q4H PRN PO MODERATE PAIN LEVEL 4-6; Start 08/18/18 at 11:00 BLANCA LR NP Aug 18, 2018 14:35
--- NOTE | 2018-08-18 16:13 | CONS ---
Assessment/Plan Assessment/Plan Hospital Course (Demo Recall) #RUE DVT - related to prior PICC line #CHF #endocarditis -continue heparin gtt for this bag. can then transition to eliquis 10mgpo BID x 7 days then down to 5mg po bID -will perform hyper coagulable workup as an out patient, especially given her family history of clotting -continue antibiotics for endocarditis Consultation Date/Type/Reason Admit Date/Time Aug 15, 2018 at 10:07 Initial Consult Date 08/17/18 Type of Consult hematology Reason for Consultation RUE DVT Requesting Provider: JHOANA CAMPA NP Date/Time of Note DATE: 08/18/18 TIME: 16:10 24 HR Interval Summary Free Text/Dictation still with RUE pain Exam/Review of Systems Exam Vitals Vital Signs Date Temp Pulse Resp B/P (MAP) Pulse Ox O2 O2 Flow FiO2 Time Delivery Rate 08/18/18 98.2 107 17 142/85 100 Room Air 12:42 (104) Intake and Output 08/17/18 08/17/18 08/18/18 1515:00 23:00 07:00 IntakeIntake Total 1000 ml 800 ml 900 ml BalanceBalance 1000 ml 800 ml 900 ml Constitutional: alert, oriented Psych: anxiety, other (pain) Head: normocephalic Eyes: nl conjunctiva ENMT: nl external ears & nose Neck: supple Respiratory: clear to auscultation Cardiovascular: regular rate and rhythm Gastrointestinal: soft Musculoskeletal: swelling (RUE) Results Result Diagram: 08/18/18 0615 08/18/18 0615 Results 24hrs Laboratory Tests Test 08/17/18 22:23 08/18/18 06:15 Activated Partial Thromboplast Time 99.2 *H 89.6 *H White Blood Count 7.1 Red Blood Count 3.12 L Hemoglobin 8.6 L Hematocrit 27.9 L Mean Corpuscular Volume 89.4 Mean Corpuscular Hemoglobin 27.6 L Mean Corpuscular Hemoglobin Concent 30.8 L Red Cell Distribution Width 14.6 H Platelet Count 290 Mean Platelet Volume 9.5 Immature Granulocytes % 0.100 Neutrophils % 50.6 Lymphocytes % 38.9 Monocytes % 7.1 Eosinophils % 2.7 Basophils % 0.6 Nucleated Red Blood Cells % 0.0 Immature Granulocytes # 0.010 Neutrophils # 3.6 Lymphocytes # 2.7 Monocytes # 0.5 Eosinophils # 0.2 Basophils # 0.0 Nucleated Red Blood Cells # 0.0 Sodium Level 140 Potassium Level 4.2 Chloride Level 106 Carbon Dioxide Level 27 Anion Gap 7 Blood Urea Nitrogen 12 Creatinine 0.59 Est Glomerular Filtrat Rate mL/min > 60 Glucose Level 95 # Calcium Level 8.7 Phosphorus Level 4.5 Magnesium Level 1.7 Medications Medication Current Medications Heparin Sodium (Porcine) (Heparin (1000 Units/ml)) 9,100 unit PER PROTOCOL PRN IV aPTT<47 Last administered on 08/15/18at 12:07; Admin Dose 9,100 UNIT; Start 08/15/18 at 10:00 Heparin Sodium (Porcine) (Heparin (1000 Units/ml)) 4,500 unit PER PROTOCOL PRN IV aPTT<47-57 Last administered on 08/15/18at 19:11; Admin Dose 4,500 UNIT; Start 08/15/18 at 10:00 Heparin Sodium (Porcine) 250 ml @ 0 mls/hr PER PROTOCOL IV Last administered on 08/17/18at 22:19; Admin Dose 15.5 MLS/HR; Start 08/15/18 at 10:00 Morphine Sulfate (morphine) 2 mg Q4 PRN IV CRIES SCALE 5-7 Last administered on 08/18/18at 11:31; Admin Dose 2 MG; Start 08/15/18 at 12:00 IV Flush (NS 3 ml) 3 ml PER PROTOCOL IV ; Start 08/15/18 at 14:00 Ondansetron HCl (Zofran Inj) 4 mg Q6H PRN IV NAUSEA/VOMITING; Start 08/15/18 at 14:00 Acetaminophen (Tylenol Tab) 650 mg Q6H PRN PO .PAIN 1-3 OR TEMP; Start 08/15/18 at 14:00 Acetaminophen/ Hydrocodone Bitart ([place] (5/325)) 1 tab Q6H PRN PO .MOD PAIN 4- 6; Start 08/15/18 at 14:00 Docusate Sodium (Colace) 100 mg Q12H PRN PO .CONSTIPATION; Start 08/15/18 at 14:00 Magnesium Hydroxide (Milk Of Mag) 30 ml DAILY PRN PO .CONSTIPATION; Start 08/15/18 at 14:00 Bisacodyl (Dulcolax Supp) 10 mg DAILY PRN [place] .CONSTIPATION; Start 08/15/18 at 14:00 Cefazolin Sodium/ Dextrose 50 ml @ 100 mls/hr Q8 IVPB Last administered on 08/18/18at 14:26; Admin Dose 100 MLS/HR; Start 08/15/18 at 14:00 Alprazolam (Xanax) 1 mg BID PRN PO ANXIETY Last administered on 08/18/18 09:35; Admin Dose 1 MG; Start 08/15/18 at 14:30 Hydromorphone HCl (Dilaudid) 1 mg Q4H PRN IV .SEVERE PAIN 7-10 Last adm inistered on 08/18/18at 12:50; Admin Dose 1 MG; Start 08/16/18 at 12:00 Pantoprazole (Protonix Tab) 40 mg DAILY@06 PO Last administered on 08/18/18at 06:04; Admin Dose 40 MG; Start 08/18/18 at 06:00 Acetaminophen/ Hydrocodone Bitart ([place] (10/325)) 1 tab Q4H PRN PO MODERATE PAIN LEVEL 4-6 Last administered on 08/18/18at 14:35; Admin Dose 1 TAB; Start 08/18/18 at 11:00 ZHANE OMER M.D. Aug 18, 2018 16:13
--- NOTE | 2018-08-18 16:34 | RADRPT ---
Vent Rate: 94 bpm RR Interval: 640 msec LA Interval: 126 msec QRS Duration: 88 msec QT Interval: 353 msec QTC Interval: 441 msec P-R-T [place]: 30 - 25 - 26 degrees Sinus rhythm...normal P axis, V-rate 50- 99 Electronically Signed By: Navid Drake
[2018-08-18] MEDS: APIXABAN 5 MG TABLET PO SCH (21:01)
[2018-08-19] MEDS: HYDROCODONE/APAP (10/325) TAB PO PRN ×2 (00:38→19:50)
[2018-08-19] MEDS: HYDROmorphONE 0.5 MG/0.5 ML SYG IV PRN ×5 (01:31→23:15)
[2018-08-19 02:20] VITALS: BP 136/66; PULSE 106; RESP 20
[2018-08-19] MEDS: PANTOPRAZOLE (EC) 40 MG TAB PO SCH (06:02)
[2018-08-19] MEDS: CEFAZOLIN 2 GM/50 ML (PMX) 50 ML IVPB SCH ×3 (06:02→21:12)
[2018-08-19] MEDS: ALPRAZOLAM 1 MG TAB PO PRN ×2 (08:50→21:02)
[2018-08-19] MEDS: APIXABAN 5 MG TABLET PO SCH ×2 (08:50→20:51)
[2018-08-19 09:03] VITALS: BP 157/94; PULSE 101; RESP 17
--- NOTE | 2018-08-19 10:01 | PN ---
Date/Time of Note Date/Time of Note DATE: 08/19/18 TIME: 09:59 Assessment/Plan VTE Prophylaxis Risk score (from Nsg)>0 risk: 6 SCD applied (from Nsg): Yes Pharmacological prophylaxis: apixaban Lines/Catheters IV Catheter Type (from Nrsg): PICC Line Central line still needed: Yes Urinary Cath still in place: No Assessment/Plan Hospital Course SUBJECTIVE: Continues to complains of right upper extremity and right breast pain. Off heparin gtt. OBJECTIVE: Physical Exam General: Morbidly obese, 32 year-old female lying in bed in no apparent d istress. HEENT: Normocephalic, atraumatic. Eyes: Anicteric sclerae, conjunctivae clear. ENT: Nasal septum midline, oral mucosa moist. Neck supple, no JVD noticed. Respiratory: Bilaterally diminished breath sounds. No use of accessory muscles of respiration. No adventitious breath sounds. Cardiovascular: S1, S2 heard. Tachycardia. Abdomen: Soft, nontender, and nondistended. Bowel sounds positive in all 4 quadrants. Genitourinary: Deferred. Extremities: No cyanosis, no clubbing. Right upper extremity edema. Peripheral pulses palpable. Edema and warmth in the right biceps all the way into the axilla. Neurologic: Cranial nerves II through XII grossly intact. The patient is awake, alert, and oriented. Skin: Normal skin turgor. Multiple tattoos. Labs & Vitals per chart ASSESSMENT & PLAN 32-year-old F with comorbidities including morbid obesity (BMI>42 kg/m), report ed history of endocarditis, and anxiety disorder who was recently admitted to [facility] and was discharged home on July 18, 2018 with a PICC line for antibiotics for total of 6 weeks. The patient returned to [place] ER with chief complaint of right upper extremity pain at the site of PICC with DVT on the RUE and her PICC was replaced on LUE; transferred to [facility] for because of insurance reasons. 1. Extensive DVT of the right upper extremity. S/P heparin drip. Started on factor Xa inhibitors on 08/18/2018. Hematology following. 2. Reported history of endocarditis. Continue Ancef as per ID recommendations. Cardiology following 2D echo results noted. 3. Morbid obesity. BMI more than 42 kg/m. Advised weight reduction. 4. Anxiety disorder. Continue PRN anxiolytics. 5. Normocytic anemia. Etiology unclear. Monitor H&H closely. 6. Fluids, electrolytes, and nutrition. Regular diet. 7. DVT prophylaxis. On heparin drip. 8. Plan. Continue antibiotics as per ID. Continue Eliquis. Await further recommendations from consultants. DC planning is to home once clinically stable. The patient was seen in collaboration with Dr. Herrera. Result Diagram: 08/19/18 0452 08/19/18 0452 Results 24hrs Laboratory Tests Test 08/19/18 04:52 08/19/18 07:17 White Blood Count 5.8 Red Blood Count 3.37 L Hemoglobin 9.2 L Hematocrit 29.9 L Mean Corpuscular Volume 88.7 Mean Corpuscular Hemoglobin 27.3 L Mean Corpuscular Hemoglobin Concent 30.8 L Red Cell Distribution Width 14.4 Platelet Count 288 Mean Platelet Volume 9.3 Immature Granulocytes % 0.300 Neutrophils % 49.9 Lymphocytes % 38.6 Monocytes % 8.3 Eosinophils % 2.4 Basophils % 0.5 Nucleated Red Blood Cells % 0.0 Immature Granulocytes # 0.020 Neutrophils # 2.9 Lymphocytes # 2.2 Monocytes # 0.5 Eosinophils # 0.1 Basophils # 0.0 Nucleated Red Blood Cells # 0.0 Activated Partial Thromboplast Time 36.4 H Sodium Level 140 Potassium Level 3.7 Chloride Level 104 Carbon Dioxide Level 28 Anion Gap 8 Blood Urea Nitrogen 11 Creatinine 0.58 Est Glomerular Filtrat Rate mL/min > 60 Glucose Level 98 Calcium Level 8.7 Phosphorus Level 4.5 Magnesium Level 1.7 Lab Scanned Report REFERENCE LAB Exam/Review of Systems Exam Vitals Vital Signs Date Temp Pulse Resp B/P (MAP) Pulse Ox O2 O2 Flow FiO2 Time Delivery Rate 08/19/18 98.5 101 17 157/94 98 Room Air 09:03 (115) Intake and Output 08/18/18 08/18/18 08/19/18 1515:00 23:00 07:00 IntakeIntake Total 50 ml 1100 ml 50 ml BalanceBalance 50 ml 1100 ml 50 ml Results Results 24hrs Laboratory Tests Test 08/19/18 04:52 08/19/18 07:17 White Blood Count 5.8 Red Blood Count 3.37 L Hemoglobin 9.2 L Hematocrit 29.9 L Mean Corpuscular Volume 88.7 Mean Corpuscular Hemoglobin 27.3 L Mean Corpuscular Hemoglobin Concent 30.8 L Red Cell Distribution Width 14.4 Platelet Count 288 Mean Platelet Volume 9.3 Immature Granulocytes % 0.300 Neutrophils % 49.9 Lymphocytes % 38.6 Monocytes % 8.3 Eosinophils % 2.4 Basophils % 0.5 Nucleated Red Blood Cells % 0.0 Immature Granulocytes # 0.020 Neutrophils # 2.9 Lymphocytes # 2.2 Monocytes # 0.5 Eosinophils # 0.1 Basophils # 0.0 Nucleated Red Blood Cells # 0.0 Activated Partial Thromboplast Time 36.4 H Sodium Level 140 Potassium Level 3.7 Chloride Level 104 Carbon Dioxide Level 28 Anion Gap 8 Blood Urea Nitrogen 11 Creatinine 0.58 Est Glomerular Filtrat Rate mL/min > 60 Glucose Level 98 Calcium Level 8.7 Phosphorus Level 4.5 Magnesium Level 1.7 Lab Scanned Report REFERENCE LAB Medications Medication Current Medications Morphine Sulfate (morphine) 2 mg Q4 PRN IV CRIES SCALE 5-7 Last administered on 08/18/18at 22:43; Admin Dose 2 MG; Start 08/15/18 at 12:00 IV Flush (NS 3 ml) 3 ml PER PROTOCOL IV ; Start 08/15/18 at 14:00 Ondansetron HCl (Zofran Inj) 4 mg Q6H PRN IV NAUSEA/VOMITING; Start 08/15/18 at 14:00 Acetaminophen (Tylenol Tab) 650 mg Q6H PRN PO .PAIN 1-3 OR TEMP; Start 08/15/18 at 14:00 Acetaminophen/ Hydrocodone Bitart ([place] (5/325)) 1 tab Q6H PRN PO .MOD PAIN 4- 6; Start 08/15/18 at 14:00 Docusate Sodium (Colace) 100 mg Q12H PRN PO .CONSTIPATION; Start 08/15/18 at 14:00 Magnesium Hydroxide (Milk Of Mag) 30 ml DAILY PRN PO .CONSTIPATION; Start 08/15/18 at 14:00 Bisacodyl (Dulcolax Supp) 10 mg DAILY PRN [place] .CONSTIPATION; Start 08/15/18 at 14:00 Cefazolin Sodium/ Dextrose 50 ml @ 100 mls/hr Q8 IVPB Last administered on 08/19/18at 06:02; Admin Dose 100 MLS/HR; Start 08/15/18 at 14:00 Alprazolam (Xanax) 1 mg BID PRN PO ANXIETY Last administered on 08/19/18 08:50; Admin Dose 1 MG; Start 08/15/18 at 14:30 Hydromorphone HCl (Dilaudid) 1 mg Q4H PRN IV .SEVERE PAIN 7-10 Last administered on 08/19/18 08:25; Admin Dose 1 MG; Start 08/16/18 at 12:00 Pantoprazole (Protonix Tab) 40 mg DAILY@06 PO Last administered on 08/19/18at 06:02; Admin Dose 40 MG; Start 08/18/18 at 06:00 Acetaminophen/ Hydrocodone Bitart ([place] ()) 1 tab Q4H PRN PO MODERATE PAIN LEVEL 4-6 Last administered on 08/19/18at 00:38; Admin Dose 1 TAB; Start 08/18/18 at 11:00 Apixaban (Eliquis) 10 mg BID PO Last administered on 08/19/18at 08:50; Admin Dose 10 MG; Start 08/18/18 at 21:00; Stop 08/25/18 at 20:59 Apixaban (Eliquis) 5 mg BID PO ; Start 08/26/18 at 21:00 JHOANA CAMPA NP Aug 19, 2018 10:01
--- NOTE | 2018-08-19 10:49 | CONS ---
Assessment/Plan Assessment/Plan Hospital Course (Demo Recall) #RUE DVT - related to prior PICC line #CHF #endocarditis -continue eliquis 10mgpo BID x 7 days then down to 5mg po BID -will perform hyper coagulable workup as an out patient, especially given her family history of clotting -continue antibiotics for endocarditis Consultation Date/Type/Reason Admit Date/Time Aug 15, 2018 at 10:07 Initial Consult Date 08/17/18 Type of Consult hematology Reason for Consultation RUE DVT Requesting Provider: JHOANA CAMPA NP Date/Time of Note DATE: 08/19/18 TIME: 10:38 24 HR Interval Summary Free Text/Dictation pt still has pain in RUE. currently on Eliquis 10mg po BID and tolerating it well Exam/Review of Systems Exam Vitals Vital Signs Date Temp Pulse Resp B/P (MAP) Pulse Ox O2 O2 Flow FiO2 Time Delivery Rate 08/19/18 98.5 101 17 157/94 98 Room Air 09:03 (115) Intake and Output 08/18/18 08/18/18 08/19/18 1515:00 23:00 07:00 IntakeIntake Total 50 ml 1100 ml 50 ml BalanceBalance 50 ml 1100 ml 50 ml Constitutional: alert, oriented Psych: anxiety, depression Head: normocephalic Eyes: nl conjunctiva ENMT: nl external ears & nose Neck: supple Respiratory: clear to auscultation Cardiovascular: regular rate and rhythm Gastrointestinal: soft Musculoskeletal: nl extremities to inspection Results Result Diagram: 08/19/18 0452 08/19/18 0452 Results 24hrs Laboratory Tests Test 08/19/18 04:52 08/19/18 07:17 White Blood Count 5.8 Red Blood Count 3.37 L Hemoglobin 9.2 L Hematocrit 29.9 L Mean Corpuscular Volume 88.7 Mean Corpuscular Hemoglobin 27.3 L Mean Corpuscular Hemoglobin Concent 30.8 L Red Cell Distribution Width 14.4 Platelet Count 288 Mean Platelet Volume 9.3 Immature Granulocytes % 0.300 Neutrophils % 49.9 Lymphocytes % 38.6 Monocytes % 8.3 Eosinophils % 2.4 Basophils % 0.5 Nucleated Red Blood Cells % 0.0 Immature Granulocytes # 0.020 Neutrophils # 2.9 Lymphocytes # 2.2 Monocytes # 0.5 Eosinophils # 0.1 Basophils # 0.0 Nucleated Red Blood Cells # 0.0 Activated Partial Thromboplast Time 36.4 H Sodium Level 140 Potassium Level 3.7 Chloride Level 104 Carbon Dioxide Level 28 Anion Gap 8 Blood Urea Nitrogen 11 Creatinine 0.58 Est Glomerular Filtrat Rate mL/min > 60 Glucose Level 98 Calcium Level 8.7 Phosphorus Level 4.5 Magnesium Level 1.7 Lab Scanned Report REFERENCE LAB Medications Medication Current Medications Morphine Sulfate (morphine) 2 mg Q4 PRN IV CRIES SCALE 5-7 Last administered on 08/18/18at 22:43; Admin Dose 2 MG; Start 08/15/18 at 12:00 IV Flush (NS 3 ml) 3 ml PER PROTOCOL IV ; Start 08/15/18 at 14:00 Ondansetron HCl (Zofran Inj) 4 mg Q6H PRN IV NAUSEA/VOMITING; Start 08/15/18 at 14:00 Acetaminophen (Tylenol Tab) 650 mg Q6H PRN PO .PAIN 1-3 OR TEMP; Start 08/15/18 at 14:00 Acetaminophen/ Hydrocodone Bitart ([place] (5/325)) 1 tab Q6H PRN PO .MOD PAIN 4- 6; Start 08/15/18 at 14:00 Docusate Sodium (Colace) 100 mg Q12H PRN PO .CONSTIPATION; Start 08/15/18 at 14:00 Magnesium Hydroxide (Milk Of Mag) 30 ml DAILY PRN PO .CONSTIPATION; Start 08/15/18 at 14:00 Bisacodyl (Dulcolax Supp) 10 mg DAILY PRN [place] .CONSTIPATION; Start 08/15/18 at 14:00 Cefazolin Sodium/ Dextrose 50 ml @ 100 mls/hr Q8 IVPB Last administered on 08/19/18at 06:02; Admin Dose 100 MLS/HR; Start 08/15/18 at 14:00 Alprazolam (Xanax) 1 mg BID PRN PO ANXIETY Last administered on 08/19/18at 08:50; Admin Dose 1 MG; Start 08/15/18 at 14:30 Hydromorphone HCl (Dilaudid) 1 mg Q4H PRN IV .SEVERE PAIN 7-10 Last administered on 08/19/18at 08:25; Admin Dose 1 MG; Start 08/16/18 at 12:00 Pantoprazole (Protonix Tab) 40 mg DAILY@06 PO Last administered on 08/19/18at 06:02; Admin Dose 40 MG; Start 08/18/18 at 06:00 Acetaminophen/ Hydrocodone Bitart ([place] ()) 1 tab Q4H PRN PO MODERATE PAIN LEVEL 4-6 Last administered on 08/19/18at 00:38; Admin Dose 1 TAB; Start 08/18/18 at 11:00 Apixaban (Eliquis) 10 mg BID PO Last administered on 08/19/18at 08:50; Admin Dose 10 MG; Start 08/18/18 at 21:00; Stop 08/25/18 at 20:59 Apixaban (Eliquis) 5 mg BID PO ; Start 08/26/18 at 21:00 ZHANE OMER M.D. Aug 19, 2018 10:48
[2018-08-19] MEDS: morphine 2 MG INJ IV PRN ×3 (11:04→21:02)
--- NOTE | 2018-08-19 11:37 | CONS ---
Assessment/Plan Assessment/Plan Hospital Course (Demo Recall) All noted, no acute events, no fevers Microbiology: Blood cultures negative Antimicrobials: Ancef Physical examination: Obese well-developed middle-aged woman who is alert in no distress. Head atraumatic normocephalic neck is supple chest rise symmetrical breath sounds clear heart: S1-S2 abdomen soft bowel sounds present extremities with right upper extremity edema Assessment: 1. Right upper extremity DVT 2. TV endocarditis 3. Obesity 4. History of MSSA bacteremia 07/12/18 Plan: Remains stable, continue on current antibiotics to complete 6 weeks==> last dose 08/24, hematology rec-s noted Consultation Date/Type/Reason Admit Date/Time Aug 15, 2018 at 10:07 Initial Consult Date Type of Consult id Requesting Provider: JHOANA ACMPA NP Date/Time of Note DATE: 08/19/18 TIME: 11:35 Exam/Review of Systems Exam Vitals Vital Signs Date Temp Pulse Resp B/P (MAP) Pulse Ox O2 O2 Flow FiO2 Time Delivery Rate 08/19/18 98.5 101 17 157/94 98 Room Air 09:03 (115) Intake and Output 08/18/18 08/18/18 08/19/18 1515:00 23:00 07:00 IntakeIntake Total 50 ml 1100 ml 50 ml BalanceBalance 50 ml 1100 ml 50 ml Results Result Diagram: 08/19/18 0452 08/19/18 0452 Results 24hrs Laboratory Tests Test 08/19/18 04:52 08/19/18 07:17 White Blood Count 5.8 Red Blood Count 3.37 L Hemoglobin 9.2 L Hematocrit 29.9 L Mean Corpuscular Volume 88.7 Mean Corpuscular Hemoglobin 27.3 L Mean Corpuscular Hemoglobin Concent 30.8 L Red Cell Distribution Width 14.4 Platelet Count 288 Mean Platelet Volume 9.3 Immature Granulocytes % 0.300 Neutrophils % 49.9 Lymphocytes % 38.6 Monocytes % 8.3 Eosinophils % 2.4 Basophils % 0.5 Nucleated Red Blood Cells % 0.0 Immature Granulocytes # 0.020 Neutrophils # 2.9 Lymphocytes # 2.2 Monocytes # 0.5 Eosinophils # 0.1 Basophils # 0.0 Nucleated Red Blood Cells # 0.0 Activated Partial Thromboplast Time 36.4 H Sodium Level 140 Potassium Level 3.7 Chloride Level 104 Carbon Dioxide Level 28 Anion Gap 8 Blood Urea Nitrogen 11 Creatinine 0.58 Est Glomerular Filtrat Rate mL/min > 60 Glucose Level 98 Calcium Level 8.7 Phosphorus Level 4.5 Magnesium Level 1.7 Lab Scanned Report REFERENCE LAB Medications Medication Current Medications Morphine Sulfate (morphine) 2 mg Q4 PRN IV CRIES SCALE 5-7 Last administered on 08/19/18at 11:04; Admin Dose 2 MG; Start 08/15/18 at 12:00 IV Flush (NS 3 ml) 3 ml PER PROTOCOL IV ; Start 08/15/18 at 14:00 Ondansetron HCl (Zofran Inj) 4 mg Q6H PRN IV NAUSEA/VOMITING; Start 08/15/18 at 14:00 Acetaminophen (Tylenol Tab) 650 mg Q6H PRN PO .PAIN 1-3 OR TEMP; Start 08/15/18 at 14:00 Acetaminophen/ Hydrocodone Bitart ([place] (5/325)) 1 tab Q6H PRN PO .MOD PAIN 4- 6; Start 08/15/18 at 14:00 Docusate Sodium (Colace) 100 mg Q12H PRN PO .CONSTIPATION; Start 08/15/18 at 14:00 Magnesium Hydroxide (Milk Of Mag) 30 ml DAILY PRN PO .CONSTIPATION; Start 08/15/18 at 14:00 Bisacodyl (Dulcolax Supp) 10 mg DAILY PRN [place] .CONSTIPATION; Start 08/15/18 at 14:00 Cefazolin Sodium/ Dextrose 50 ml @ 100 mls/hr Q8 IVPB Last administered on 08/19/18at 06:02; Admin Dose 100 MLS/HR; Start 08/15/18 at 14:00 Alprazolam (Xanax) 1 mg BID PRN PO ANXIETY Last administered on 08/19/18at 08:50; Admin Dose 1 MG; Start 08/15/18 at 14:30 Hydromorphone HCl (Dilaudid) 1 mg Q4H PRN IV .SEVERE PAIN 7-10 Last administered on 08/19/18at 08:25; Admin Dose 1 MG; Start 08/16/18 at 12:00 Pantoprazole (Protonix Tab) 40 mg DAILY@06 PO Last administered on 08/19/18at 06:02; Admin Dose 40 MG; Start 08/18/18 at 06:00 Acetaminophen/ Hydrocodone Bitart ([place] ()) 1 tab Q4H PRN PO MODERATE PAIN LEVEL 4-6 Last administered on 08/19/18at 00:38; Admin Dose 1 TAB; Start 08/18/18 at 11:00 Apixaban (Eliquis) 10 mg BID PO Last administered on 08/19/18at 08:50; Admin Dose 10 MG; Start 08/18/18 at 21:00; Stop 08/25/18 at 20:59 Apixaban (Eliquis) 5 mg BID PO ; Start 08/26/18 at 21:00 BLANCA LR NP Aug 19, 2018 11:37
--- NOTE | 2018-08-19 18:04 | CONS ---
Assessment/Plan Assessment/Plan Hospital Course (Demo Recall) IMPRESSION: 1. History of recently diagnosed endocarditis, assess for ongoing infection.- Bld cx remain NTD and TTE was without sig valvular findings this admit 2. Tachycardia, borderline consistent with sinus tachycardia-ongoing mild 3. Hypertension, labile may be related to pain, currently improved, off of antihypertensives recently today. 4. Deep venous thrombosis of the right extremity, likely secondary to PICC line that was in place. 5. Anemia. 6. Psychiatric disorder. Recc: -Now on med-surg -serial ecg's -f/u records from [place] -Continue abx's and f/u cx data closely -Now started on eliquis -For ongoing tachycardia will consider low dose BB to improve patient comfort Consultation Date/Type/Reason Admit Date/Time Aug 15, 2018 at 10:07 Initial Consult Date 08/17/18 Type of Consult Cardiology Reason for Consultation endocarditis Requesting Provider: JHOANA CAMPA NP Date/Time of Note DATE: 08/19/18 TIME: 18:02 Exam/Review of Systems Vital Signs Vitals Vital Signs Date Temp Pulse Resp B/P (MAP) Pulse Ox O2 O2 Flow FiO2 Time Delivery Rate 08/19/18 98.5 101 17 157/94 98 Room Air 09:03 (115) Intake and Output 08/18/18 08/18/18 08/19/18 1515:00 23:00 07:00 IntakeIntake Total 50 ml 1100 ml 50 ml BalanceBalance 50 ml 1100 ml 50 ml Exam Exam Review of Systems: CONSTITUTIONAL: No fevers, chills. PULMONARY: No sob CARDIOVASCULAR: No chest pain/palpitations GASTROINTESTINAL: No nausea/vomiting. GENITOURINARY: No hematuria/dysuria. MUSCULOSKELETAL: No myagias/arthalgias. PSYCHIATRIC: The patient denies depression. NEUROLOGIC: No weakness Constitutional: alert Psych: no complaints Head: normocephalic ENMT: mucosa pink and moist Neck: supple, jvd (8 cm water) Respiratory: diminished breath sounds (at bases/B) Cardiovascular: other (tachycardic) Gastrointestinal: soft, non-tender Musculoskeletal: muscle tone (normal) Extremities: edema (LUE) Neurological: other (no focal deficits) Labs Result Diagram: 08/19/18 0452 08/19/18 0452 Results 24hrs Laboratory Tests Test 08/19/18 04:52 08/19/18 07:17 White Blood Count 5.8 Red Blood Count 3.37 L Hemoglobin 9.2 L Hematocrit 29.9 L Mean Corpuscular Volume 88.7 Mean Corpuscular Hemoglobin 27.3 L Mean Corpuscular Hemoglobin Concent 30.8 L Red Cell Distribution Width 14.4 Platelet Count 288 Mean Platelet Volume 9.3 Immature Granulocytes % 0.300 Neutrophils % 49.9 Lymphocytes % 38.6 Monocytes % 8.3 Eosinophils % 2.4 Basophils % 0.5 Nucleated Red Blood Cells % 0.0 Immature Granulocytes # 0.020 Neutrophils # 2.9 Lymphocytes # 2.2 Monocytes # 0.5 Eosinophils # 0.1 Basophils # 0.0 Nucleated Red Blood Cells # 0.0 Activated Partial Thromboplast Time 36.4 H Sodium Level 140 Potassium Level 3.7 Chloride Level 104 Carbon Dioxide Level 28 Anion Gap 8 Blood Urea Nitrogen 11 Creatinine 0.58 Est Glomerular Filtrat Rate mL/min > 60 Glucose Level 98 Calcium Level 8.7 Phosphorus Level 4.5 Magnesium Level 1.7 Lab Scanned Report REFERENCE LAB Medications Medications Current Medications Morphine Sulfate (morphine) 2 mg Q4 PRN IV CRIES SCALE 5-7 Last administered on 08/19/18at 16:49; Admin Dose 2 MG; Start 08/15/18 at 12:00 IV Flush (NS 3 ml) 3 ml PER PROTOCOL IV ; Start 08/15/18 at 14:00 Ondansetron HCl (Zofran Inj) 4 mg Q6H PRN IV NAUSEA/VOMITING; Start 08/15/18 at 14:00 Acetaminophen (Tylenol Tab) 650 mg Q6H PRN PO .PAIN 1-3 OR TEMP; Start 08/15/18 at 14:00 Acetaminophen/ Hydrocodone Bitart ([place] (5/325)) 1 tab Q6H PRN PO .MOD PAIN 4- 6; Start 08/15/18 at 14:00 Docusate Sodium (Colace) 100 mg Q12H PRN PO .CONSTIPATION; Start 08/15/18 at 14:00 Magnesium Hydroxide (Milk Of Mag) 30 ml DAILY PRN PO .CONSTIPATION; Start 08/15/18 at 14:00 Bisacodyl (Dulcolax Supp) 10 mg DAILY PRN [place] .CONSTIPATION; Start 08/15/18 at 14:00 Cefazolin Sodium/ Dextrose 50 ml @ 100 mls/hr Q8 IVPB Last administered on 08/19/18 14:15; Admin Dose 100 MLS/HR; Start 08/15/18 at 14:00 Alprazolam (Xanax) 1 mg BID PRN PO ANXIETY Last administered on 08/19/18 08:50; Admin Dose 1 MG; Start 08/15/18 at 14:30 Hydromorphone HCl (Dilaudid) 1 mg Q4H PRN IV .SEVERE PAIN 7-10 Last administered on 08/19/18at 13:32; Admin Dose 1 MG; Start 08/16/18 at 12:00 Pantoprazole (Protonix Tab) 40 mg DAILY@06 PO Last administered on 08/19/18 06:02; Admin Dose 40 MG; Start 08/18/18 at 06:00 Acetaminophen/ Hydrocodone Bitart ([place] (10/325)) 1 tab Q4H PRN PO MODERATE PAIN LEVEL 4-6 Last administered on 08/19/18at 00:38; Admin Dose 1 TAB; Start 08/18/18 at 11:00 Apixaban (Eliquis) 10 mg BID PO Last administered on 08/19/18 08:50; Admin Dose 10 MG; Start 08/18/18 at 21:00; Stop 08/25/18 at 20:59 Apixaban (Eliquis) 5 mg BID PO ; Start 08/26/18 at 21:00 IK PEACE Aug 19, 2018 18:04
[2018-08-19 19:45] VITALS: BP 134/86; PULSE 102; RESP 18
[2018-08-19] MEDS: METOPROLOL 25 MG TAB PO SCH (21:02)
[2018-08-20] MEDS: morphine 2 MG INJ IV PRN ×6 (00:56→23:58)
[2018-08-20 02:37] VITALS: BP 128/77; PULSE 100; RESP 18
[2018-08-20] MEDS: HYDROCODONE/APAP (10/325) TAB PO PRN ×3 (02:40→20:52)
[2018-08-20] MEDS: HYDROmorphONE 0.5 MG/0.5 ML SYG IV PRN ×5 (03:11→22:05)
[2018-08-20] MEDS: PANTOPRAZOLE (EC) 40 MG TAB PO SCH (05:14)
[2018-08-20] MEDS: CEFAZOLIN 2 GM/50 ML (PMX) 50 ML IVPB SCH ×3 (05:14→22:05)
[2018-08-20 07:29] VITALS: BP 121/73; PULSE 69; RESP 18
[2018-08-20] MEDS: APIXABAN 5 MG TABLET PO SCH ×2 (08:49→20:54)
[2018-08-20] MEDS: METOPROLOL 25 MG TAB PO SCH ×2 (08:50→20:53)
--- NOTE | 2018-08-20 09:48 | PN ---
Date/Time of Note Date/Time of Note DATE: 08/20/18 TIME: 09:47 Assessment/Plan VTE Prophylaxis Risk score (from Nsg)>0 risk: 5 SCD applied (from Nsg): Yes Pharmacological prophylaxis: apixaban Lines/Catheters IV Catheter Type (from Nrsg): PICC Line Central line still needed: Yes Urinary Cath still in place: No Assessment/Plan Hospital Course SUBJECTIVE: Continues to complains of right upper extremity and right breast pain. OBJECTIVE: Physical Exam General: Morbidly obese, 32 year-old female lying in bed in no apparent distress. HEENT: Normocephalic, atraumatic. Eyes: Anicteric sclerae, conjunctivae clear. ENT: Nasal septum midline, oral mucosa moist. Neck supple, no JVD noticed. Respiratory: Bilaterally diminished breath sounds. No use of accessory muscles of respiration. No adventitious breath sounds. Cardiovascular: S1, S2 heard. Tachycardia. Abdomen: Soft, nontender, and nondistended. Bowel sounds positive in all 4 quadrants. Genitourinary: Deferred. Extremities: No cyanosis, no clubbing. Right upper extremity edema. Peripheral pulses palpable. Edema and warmth in the right biceps all the way into the axilla. Neurologic: Cranial nerves II through XII grossly intact. The patient is awake, alert, and oriented. Skin: Normal skin turgor. Multiple tattoos. Labs & Vitals per chart ASSESSMENT & PLAN 32-year-old F with comorbidities including morbid obesity (BMI>42 kg/m), reported history of endocarditis, and anxiety disorder who was recently admitted to [facility] and was discharged home on July 18, 2018 with a PICC line for antibiotics for total of 6 weeks. The patient returned to [place] ER with chief complaint of right upper extremity pain at the site of PICC with DVT on the RUE and her PICC was replaced on LUE; transferred to [facility] for because of insurance reasons. 1. Extensive DVT of the right upper extremity. S/P heparin drip. Started on factor Xa inhibitors on 08/18/2018. Hematology following. 2. Reported history of endocarditis. Continue Ancef as per ID recommendations. Cardiology following 2D echo results noted. 3. Morbid obesity. BMI more than 42 kg/m. Advised weight reduction. 4. Anxiety disorder. Continue PRN anxiolytics. 5. Normocytic anemia. Etiology unclear. Monitor H&H closely. 6. Fluids, electrolytes, and nutrition. Regular diet. 7. DVT prophylaxis. On Apixaban. 8. Plan. Continue antibiotics as per ID. Continue Eliquis. Await further recommendations from consultants. DC planning is to home once clinically stable. The patient was seen in collaboration with Dr. Herrera. Result Diagram: 08/19/18 0452 08/19/18 045 Exam/Review of Systems Exam Vitals Vital Signs Date Temp Pulse Resp B/P (MAP) Pulse Ox O2 O2 Flow FiO2 Time Delivery Rate 08/20/18 98.3 69 18 121/73 99 07:29 (89) 08/20/18 Room Air 02:37 Intake and Output 08/19/18 08/19/18 08/20/18 1515:00 23:00 07:00 IntakeIntake Total 610 ml 550 ml 880 ml OutputOutput Total 600 ml 500 ml BalanceBalance 610 ml -50 ml 380 ml Medications Medication Current Medications Morphine Sulfate (morphine) 2 mg Q4 PRN IV CRIES SCALE 5-7 Last administered on 08/20/18at 05:19; Admin Dose 2 MG; Start 08/15/18 at 12:00 IV Flush (NS 3 ml) 3 ml PER PROTOCOL IV ; Start 08/15/18 at 14:00 Ondansetron HCl (Zofran Inj) 4 mg Q6H PRN IV NAUSEA/VOMITING; Start 08/15/18 at 14:00 Acetaminophen (Tylenol Tab) 650 mg Q6H PRN PO .PAIN 1-3 OR TEMP; Start 08/15/18 at 14:00 Acetaminophen/ Hydrocodone Bitart ([place] (5/325)) 1 tab Q6H PRN PO .MOD PAIN 4- 6; Start 08/15/18 at 14:00 Docusate Sodium (Colace) 100 mg Q12H PRN PO .CONSTIPATION; Start 08/15/18 at 14:00 Magnesium Hydroxide (Milk Of Mag) 30 ml DAILY PRN PO .CONSTIPATION; Start 08/15/18 at 14:00 Bisacodyl (Dulcolax Supp) 10 mg DAILY PRN [place] .CONSTIPATION; Start 08/15/18 at 14:00 Cefazolin Sodium/ Dextrose 50 ml @ 100 mls/hr Q8 IVPB Last administered on 08/20/18 05:14; Admin Dose 100 MLS/HR; Start 08/15/18 at 14:00 Alprazolam (Xanax) 1 mg BID PRN PO ANXIETY Last administered on 08/19/18 21:02; Admin Dose 1 MG; Start 08/15/18 at 14:30 Hydromorphone HCl (Dilaudid) 1 mg Q4H PRN IV .SEVERE PAIN 7-10 Last administered on 08/20/18 06:56; Admin Dose 1 MG; Start 08/16/18 at 12:00 Pantoprazole (Protonix Tab) 40 mg DAILY@06 PO Last administered on 08/20/18 05:14; Admin Dose 40 MG; Start 08/18/18 at 06:00 Acetaminophen/ Hydrocodone Bitart ([place] (10/325)) 1 tab Q4H PRN PO MODERATE PAIN LEVEL 4-6 Last administered on 08/20/18 08:50; Admin Dose 1 TAB; Start 08/18/18 at 11:00 Apixaban (Eliquis) 10 mg BID PO Last administered on 08/20/18 08:49; Admin Dose 10 MG; Start 08/18/18 at 21:00; Stop 08/25/18 at 20:59 Apixaban (Eliquis) 5 mg BID PO ; Start 08/26/18 at 21:00 Metoprolol Tartrate (Lopressor) 25 mg BID PO Last administered on 08/20/18 08:50; Admin Dose 25 MG; Start 08/19/18 at 21:00 JHOANA CAMPA NP Aug 20, 2018 09:48
--- NOTE | 2018-08-20 12:24 | CONS ---
Assessment/Plan Assessment/Plan Hospital Course (Demo Recall) Awake, c/o RUE/back and breast pain, she is anxious re getting a clot to her brain, no fevers, nad Microbiology: Blood cultures negative Antimicrobials: Ancef Physical examination: Obese well-developed middle-aged woman who is alert in no distress. Head atraumatic normocephalic neck is supple chest rise symmetrical breath sounds clear heart: S1-S2 abdomen soft bowel sounds present extremities with right upper extremity edema Assessment: 1. Right upper extremity DVT 2. TV endocarditis 3. Obesity 4. History of MSSA bacteremia 07/12/18 Plan: Remains stable, continue on current antibiotics to complete 6 weeks==> last dose 08/24, continue pain management, bld thinners, hematology rec-s DW pt Consultation Date/Type/Reason Admit Date/Time Aug 15, 2018 at 10:07 Initial Consult Date Type of Consult id Requesting Provider: JHOANA CAMPA NP Date/Time of Note DATE: 08/20/18 TIME: 12:24 Exam/Review of Systems Exam Vitals Vital Signs Date Temp Pulse Resp B/P (MAP) Pulse Ox O2 O2 Flow FiO2 Time Delivery Rate 08/20/18 98.3 69 18 121/73 99 07:29 (89) 08/20/18 Room Air 02:37 Intake and Output 08/19/18 08/19/18 08/20/18 1515:00 23:00 07:00 IntakeIntake Total 610 ml 550 ml 880 ml OutputOutput Total 600 ml 500 ml BalanceBalance 610 ml -50 ml 380 ml Results Result Diagram: 08/19/18 0452 08/19/18 0452 Medications Medication Current Medications Morphine Sulfate (morphine) 2 mg Q4 PRN IV CRIES SCALE 5-7 Last administered on 08/20/18at 10:25; Admin Dose 2 MG; Start 08/15/18 at 12:00 IV Flush (NS 3 ml) 3 ml PER PROTOCOL IV ; Start 08/15/18 at 14:00 Ondansetron HCl (Zofran Inj) 4 mg Q6H PRN IV NAUSEA/VOMITING; Start 08/15/18 at 14:00 Acetaminophen (Tylenol Tab) 650 mg Q6H PRN PO .PAIN 1-3 OR TEMP; Start 08/15/18 at 14:00 Acetaminophen/ Hydrocodone Bitart ([place] (5/325)) 1 tab Q6H PRN PO .MOD PAIN 4- 6; Start 08/15/18 at 14:00 Docusate Sodium (Colace) 100 mg Q12H PRN PO .CONSTIPATION; Start 08/15/18 at 14:00 Magnesium Hydroxide (Milk Of Mag) 30 ml DAILY PRN PO .CONSTIPATION; Start 08/15/18 at 14:00 Bisacodyl (Dulcolax Supp) 10 mg DAILY PRN [place] .CONSTIPATION; Start 08/15/18 at 14:00 Cefazolin Sodium/ Dextrose 50 ml @ 100 mls/hr Q8 IVPB Last administered on 08/20/18 05:14; Admin Dose 100 MLS/HR; Start 08/15/18 at 14:00 Alprazolam (Xanax) 1 mg BID PRN PO ANXIETY Last administered on 08/19/18at 21:02; Admin Dose 1 MG; Start 08/15/18 at 14:30 Hydromorphone HCl (Dilaudid) 1 mg Q4H PRN IV .SEVERE PAIN 7-10 Last administered on 08/20/18at 11:16; Admin Dose 1 MG; Start 08/16/18 at 12:00 Pantoprazole (Protonix Tab) 40 mg DAILY@06 PO Last administered on 08/20/18at 05:14; Admin Dose 40 MG; Start 08/18/18 at 06:00 Acetaminophen/ Hydrocodone Bitart ([place] (10/325)) 1 tab Q4H PRN PO MODERATE PAIN LEVEL 4-6 Last administered on 08/20/18 08:50; Admin Dose 1 TAB; Start 08/18/18 at 11:00 Apixaban (Eliquis) 10 mg BID PO Last administered on 08/20/18at 08:49; Admin Dose 10 MG; Start 08/18/18 at 21:00; Stop 08/25/18 at 20:59 Apixaban (Eliquis) 5 mg BID PO ; Start 08/26/18 at 21:00 Metoprolol Tartrate (Lopressor) 25 mg BID PO Last administered on 08/20/18at 08:50; Admin Dose 25 MG; Start 08/19/18 at 21:00 BLANCA LR NP Aug 20, 2018 12:24
--- NOTE | 2018-08-20 14:07 | CONS ---
Assessment/Plan Assessment/Plan Hospital Course (Demo Recall) IMPRESSION: 1. History of recently diagnosed endocarditis, assess for ongoing infection.- Bld cx remain NTD and TTE was without sig valvular findings this admit 2. Tachycardia, borderline consistent with sinus tachycardia-ongoing mild 3. Hypertension, labile may be related to pain, currently improved, off of antihypertensives recently today. 4. Deep venous thrombosis of the right extremity, likely secondary to PICC line that was in place. 5. Anemia. 6. Psychiatric disorder. Recc: -Now on med-surg -serial ecg's -Continue abx's and f/u cx data closely -Continue eliquis -Continue low dose BB with improved HR/BP overall Consultation Date/Type/Reason Admit Date/Time Aug 15, 2018 at 10:07 Initial Consult Date 08/17/18 Type of Consult Cardiology Reason for Consultation endocarditis Requesting Provider: JHOANA CAMPA NP Date/Time of Note DATE: 08/20/18 TIME: 14:05 Exam/Review of Systems Vital Signs Vitals Vital Signs Date Temp Pulse Resp B/P (MAP) Pulse Ox O2 O2 Flow FiO2 Time Delivery Rate 08/20/18 98.3 69 18 121/73 99 07:29 (89) 08/20/18 Room Air 02:37 Intake and Output 08/19/18 08/19/18 08/20/18 1515:00 23:00 07:00 IntakeIntake Total 610 ml 550 ml 880 ml OutputOutput Total 600 ml 500 ml BalanceBalance 610 ml -50 ml 380 ml Exam Exam Review of Systems: CONSTITUTIONAL: No fevers, chills. PULMONARY: No sob CARDIOVASCULAR: No chest pain/palpitations GASTROINTESTINAL: No nausea/vomiting. GENITOURINARY: No hematuria/dysuria. MUSCULOSKELETAL: Mild pain in R arm PSYCHIATRIC: The patient denies depression. NEUROLOGIC: No weakness Constitutional: alert, oriented Psych: no complaints Head: normocephalic ENMT: mucosa pink and moist Neck: supple, jvd (9 cm water) Respiratory: clear to auscultation Cardiovascular: regular rate and rhythm Gastrointestinal: soft, non-tender Musculoskeletal: muscle tone (normal) Extremities: edema (RUE) Neurological: other (No focal deficits) Labs Result Diagram: 08/19/18 04508/19/18 045 Medications Medications Current Medications Morphine Sulfate (morphine) 2 mg Q4 PRN IV CRIES SCALE 5-7 Last administered on 08/20/18at 10:25; Admin Dose 2 MG; Start 08/15/18 at 12:00 IV Flush (NS 3 ml) 3 ml PER PROTOCOL IV ; Start 08/15/18 at 14:00 Ondansetron HCl (Zofran Inj) 4 mg Q6H PRN IV NAUSEA/VOMITING; Start 08/15/18 at 14:00 Acetaminophen (Tylenol Tab) 650 mg Q6H PRN PO .PAIN 1-3 OR TEMP; Start 08/15/18 at 14:00 Acetaminophen/ Hydrocodone Bitart ([place] (5/325)) 1 tab Q6H PRN PO .MOD PAIN 4- 6; Start 08/15/18 at 14:00 Docusate Sodium (Colace) 100 mg Q12H PRN PO .CONSTIPATION; Start 08/15/18 at 14:00 Magnesium Hydroxide (Milk Of Mag) 30 ml DAILY PRN PO .CONSTIPATION; Start 08/15/18 at 14:00 Bisacodyl (Dulcolax Supp) 10 mg DAILY PRN [place] .CONSTIPATION; Start 08/15/18 at 14:00 Cefazolin Sodium/ Dextrose 50 ml @ 100 mls/hr Q8 IVPB Last administered on 08/20/18at 13:43; Admin Dose 100 MLS/HR; Start 08/15/18 at 14:00 Alprazolam (Xanax) 1 mg BID PRN PO ANXIETY Last administered on 08/19/18at 21:02; Admin Dose 1 MG; Start 08/15/18 at 14:30 Hydromorphone HCl (Dilaudid) 1 mg Q4H PRN IV .SEVERE PAIN 7-10 Last administered on 08/20/18at 11:16; Admin Dose 1 MG; Start 08/16/18 at 12:00 Pantoprazole (Protonix Tab) 40 mg DAILY@06 PO Last administered on 08/20/18at 05:14; Admin Dose 40 MG; Start 08/18/18 at 06:00 Acetaminophen/ Hydrocodone Bitart ([place] (10/325)) 1 tab Q4H PRN PO MODERATE PAIN LEVEL 4-6 Last administered on 08/20/18at 08:50; Admin Dose 1 TAB; Start 08/18/18 at 11:00 Apixaban (Eliquis) 10 mg BID PO Last administered on 08/20/18at 08:49; Admin Dose 10 MG; Start 08/18/18 at 21:00; Stop 08/25/18 at 20:59 Apixaban (Eliquis) 5 mg BID PO ; Start 08/26/18 at 21:00 Metoprolol Tartrate (Lopressor) 25 mg BID PO Last administered on 08/20/18at 08:50; Admin Dose 25 MG; Start 08/19/18 at 21:00 KI PEACE Aug 20, 2018 14:07
[2018-08-20 14:39] VITALS: BP 125/80; PULSE 68; RESP 18
[2018-08-20 20:28] VITALS: BP 143/86; PULSE 104; RESP 19
[2018-08-20] MEDS: ALPRAZOLAM 1 MG TAB PO PRN (20:52)
[2018-08-21] MEDS: HYDROCODONE/APAP (10/325) TAB PO PRN ×4 (01:04→20:32)
[2018-08-21] MEDS: HYDROmorphONE 0.5 MG/0.5 ML SYG IV PRN ×6 (02:19→23:44)
[2018-08-21] MEDS: PANTOPRAZOLE (EC) 40 MG TAB PO SCH (06:22)
[2018-08-21] MEDS: CEFAZOLIN 2 GM/50 ML (PMX) 50 ML IVPB SCH ×3 (06:22→21:59)
[2018-08-21] MEDS: ALPRAZOLAM 1 MG TAB PO PRN ×2 (06:31→20:32)
[2018-08-21] MEDS: morphine 2 MG INJ IV PRN ×4 (07:41→22:56)
[2018-08-21] MEDS: APIXABAN 5 MG TABLET PO SCH ×2 (08:37→20:32)
[2018-08-21] MEDS: METOPROLOL 25 MG TAB PO SCH ×2 (08:38→20:34)
[2018-08-21 08:49] VITALS: BP 127/59; PULSE 100; RESP 18
--- NOTE | 2018-08-21 09:24 | PN ---
Date/Time of Note Date/Time of Note DATE: 08/21/18 TIME: 09:23 Assessment/Plan VTE Prophylaxis Risk score (from Nsg)>0 risk: 6 SCD applied (from Nsg): Yes Pharmacological prophylaxis: apixaban Lines/Catheters IV Catheter Type (from Nrsg): PICC Line Central line still needed: Yes Urinary Cath still in place: No Assessment/Plan Hospital Course SUBJECTIVE: Continues to complains of right upper extremity pain. Patient still asking for pain medications [id number]. Patient very anxious and asking for further imaging studies to check if there is any extension of the blood clots. OBJECTIVE: Physical Exam General: Morbidly obese, 32 year-old female lying in bed in no apparent distress. HEENT: Normocephalic, atraumatic. Eyes: Anicteric sclerae, conjunctivae clear. ENT: Nasal septum midline, oral mucosa moist. Neck supple, no JVD noticed. Respiratory: Bilaterally diminished breath sounds. No use of accessory muscles of respiration. No adventitious breath sounds. Cardiovascular: S1, S2 heard. Tachycardia. Abdomen: Soft, nontender, and nondistended. Bowel sounds positive in all 4 quadrants. Genitourinary: Deferred. Extremities: No cyanosis, no clubbing. Right upper extremity edema. Peripheral pulses palpable. Edema and warmth in the right biceps all the way into the axilla. Neurologic: Cranial nerves II through XII grossly intact. The patient is awake, alert, and oriented. Skin: Normal skin turgor. Multiple tattoos. Labs & Vitals per chart ASSESSMENT & PLAN 32-year-old F with comorbidities including morbid obesity (BMI>42 kg/m), reported history of endocarditis, and anxiety disorder who was recently admitted to [facility] and was discharged home on July 18, 2018 with a PICC line for antibiotics for total of 6 weeks. The patient returned to [place] [facility] with chief complaint of right upper extremity pain at the site of PICC with DVT on the RUE and her PICC was replaced on LUE; transferred to [facility] for because of insurance reasons. 1. Extensive DVT of the right upper extremity. S/P heparin drip. Started on factor Xa inhibitors on 08/18/2018. Hematology following. 2. Reported history of endocarditis. Continue Ancef as per ID recommendations. Cardiology following 2D echo results noted. 3. Morbid obesity. BMI more than 42 kg/m. Advised weight reduction. 4. Anxiety disorder. Continue PRN anxiolytics. 5. Normocytic anemia. Etiology unclear. Monitor H&H closely. 6. Fluids, electrolytes, and nutrition. Regular diet. 7. DVT prophylaxis. On Apixaban. 8. Plan. Continue antibiotics as per ID. Continue Eliquis. Await further recommendations from consultants. DC planning is to home once clinically stable. The patient was seen in collaboration with Dr. Herrera. Result Diagram: 08/21/1862208/21/18622 Results 24hrs Laboratory Tests Test 08/21/18 06:23 White Blood Count 5.6 Red Blood Count 3.31 L Hemoglobin 9.1 L Hematocrit 30.6 L Mean Corpuscular Volume 92.4 Mean Corpuscular Hemoglobin 27.5 L Mean Corpuscular Hemoglobin Concent 29.7 L Red Cell Distribution Width 14.6 H Platelet Count 297 Mean Platelet Volume 9.7 Immature Granulocytes % 0.400 Neutrophils % 42.8 Lymphocytes % 45.9 Monocytes % 7.9 Eosinophils % 2.5 Basophils % 0.5 Nucleated Red Blood Cells % 0.0 Immature Granulocytes # 0.020 Neutrophils # 2.4 Lymphocytes # 2.6 Monocytes # 0.4 Eosinophils # 0.1 Basophils # 0.0 Nucleated Red Blood Cells # 0.0 Sodium Level 141 Potassium Level 4.0 Chloride Level 107 Carbon Dioxide Level 27 Anion Gap 7 Blood Urea Nitrogen 15 Creatinine 0.53 Est Glomerular Filtrat Rate mL/min > 60 Glucose Level 101 Calcium Level 8.8 Phosphorus Level 5.0 H Magnesium Level 1.5 L Exam/Review of Systems Exam Vitals Vital Signs Date Temp Pulse Resp B/P (MAP) Pulse Ox O2 O2 Flow FiO2 Time Delivery Rate 08/21/18 98.7 100 18 127/59 100 08:49 (81) 08/20/18 Room Air 02:37 Intake and Output 08/20/18 08/20/18 08/21/18 1515:00 23:00 07:00 IntakeIntake Total 50 ml 470 ml 1010 ml OutputOutput Total 400 ml 300 ml BalanceBalance 50 ml 70 ml 710 ml Results Results 24hrs Laboratory Tests Test 08/21/18 06:23 White Blood Count 5.6 Red Blood Count 3.31 L Hemoglobin 9.1 L Hematocrit 30.6 L Mean Corpuscular Volume 92.4 Mean Corpuscular Hemoglobin 27.5 L Mean Corpuscular Hemoglobin Concent 29.7 L Red Cell Distribution Width 14.6 H Platelet Count 297 Mean Platelet Volume 9.7 Immature Granulocytes % 0.400 Neutrophils % 42.8 Lymphocytes % 45.9 Monocytes % 7.9 Eosinophils % 2.5 Basophils % 0.5 Nucleated Red Blood Cells % 0.0 Immature Granulocytes # 0.020 Neutrophils # 2.4 Lymphocytes # 2.6 Monocytes # 0.4 Eosinophils # 0.1 Basophils # 0.0 Nucleated Red Blood Cells # 0.0 Sodium Level 141 Potassium Level 4.0 Chloride Level 107 Carbon Dioxide Level 27 Anion Gap 7 Blood Urea Nitrogen 15 Creatinine 0.53 Est Glomerular Filtrat Rate mL/min > 60 Glucose Level 101 Calcium Level 8.8 Phosphorus Level 5.0 H Magnesium Level 1.5 L Medications Medication Current Medications Morphine Sulfate (morphine) 2 mg Q4 PRN IV CRIES SCALE 5-7 Last administered on 08/21/18at 07:41; Admin Dose 2 MG; Start 08/15/18 at 12:00 IV Flush (NS 3 ml) 3 ml PER PROTOCOL IV ; Start 08/15/18 at 14:00 Ondansetron HCl (Zofran Inj) 4 mg Q6H PRN IV NAUSEA/VOMITING; Start 08/15/18 at 14:00 Acetaminophen (Tylenol Tab) 650 mg Q6H PRN PO .PAIN 1-3 OR TEMP; Start 08/15/18 at 14:00 Acetaminophen/ Hydrocodone Bitart ([place] (5/325)) 1 tab Q6H PRN PO .MOD PAIN 4- 6; Start 08/15/18 at 14:00 Docusate Sodium (Colace) 100 mg Q12H PRN PO .CONSTIPATION; Start 08/15/18 at 14:00 Magnesium Hydroxide (Milk Of Mag) 30 ml DAILY PRN PO .CONSTIPATION; Start 08/15/18 at 14:00 Bisacodyl (Dulcolax Supp) 10 mg DAILY PRN [place] .CONSTIPATION; Start 08/15/18 at 14:00 Cefazolin Sodium/ Dextrose 50 ml @ 100 mls/hr Q8 IVPB Last administered on 08/21/18at 06:22; Admin Dose 100 MLS/HR; Start 08/15/18 at 14:00 Alprazolam (Xanax) 1 mg BID PRN PO ANXIETY Last administered on 08/21/18 06:31; Admin Dose 1 MG; Start 08/15/18 at 14:30 Hydromorphone HCl (Dilaudid) 1 mg Q4H PRN IV .SEVERE PAIN 7-10 Last administered on 08/21/18 06:22; Admin Dose 1 MG; Start 08/16/18 at 12:00 Pantoprazole (Protonix Tab) 40 mg DAILY@06 PO Last administered on 08/21/18 06:22; Admin Dose 40 MG; Start 08/18/18 at 06:00 Acetaminophen/ Hydrocodone Bitart ([place] (10)) 1 tab Q4H PRN PO MODERATE PAIN LEVEL 4-6 Last administered on 08/21/18 08:38; Admin Dose 1 TAB; Start 11/27 at 11:00 Apixaban (Eliquis) 10 mg BID PO Last administered on 08/21/18 08:37; Admin Dose 10 MG; Start 08/18/18 at 21:00; Stop 08/25/18 at 20:59 Apixaban (Eliquis) 5 mg BID PO ; Start 08/26/18 at 21:00 Metoprolol Tartrate (Lopressor) 25 mg BID PO Last administered on 08/21/18 08:38; Admin Dose 25 MG; Start 08/19/18 at 21:00 JHOANA CAMPA NP Aug 21, 2018 09:24
[2018-08-21] MEDS ORDERED: MAGNESIUM SULFATE 2 GM/50 ML 50 ML IVPB ONE (09:30)
--- NOTE | 2018-08-21 13:53 | CONS ---
Assessment/Plan Assessment/Plan Assessment/Plan (Daily) #RUE DVT - related to prior PICC line -continue eliquis 10mgpo BID x 7 days then down to 5mg po BID #CHF - management per PMD #endocarditis - management per ID Will perform hyper coagulable workup as an out patient, especially given her family history of clotting. Mother at bed side- all Qs answered. Patient seen in collaboration with Dr Riggs. [facility] staff Consultation Date/Type/Reason Admit Date/Time Aug 15, 2018 at 10:07 Initial Consult Date 08/17/18 Type of Consult Hematology/ oncology Reason for Consultation RUE DVT Requesting Provider: JHOANA CAMPA NP Date/Time of Note DATE: 08/21/18 TIME: 13:53 24 HR Interval Summary Free Text/Dictation - C/O RUE. currently on Eliquis 10mg po BID and tolerating it well - C/O LLE- venous doppler negative Constitutional: requiring IVF Detailed Summary Eyes: no complaints ENT: no complaints Respiratory: no complaints Cardiovascular: no complaints Gastrointestinal: no complaints Genitourinary: no complaints Skin: erythema, other (RUE - dvt) Neurologic: no complaints Lymphatic: no complaints Psychological: nl mood/affect Immunologic: no complaints Exam/Review of Systems Exam Vitals Vital Signs Date Temp Pulse Resp B/P (MAP) Pulse Ox O2 O2 Flow FiO2 Time Delivery Rate 08/21/18 98.7 100 18 127/59 100 08:49 (81) 08/20/18 Room Air 02:37 Intake and Output 08/20/18 08/20/18 08/21/18 1515:00 23:00 07:00 IntakeIntake Total 50 ml 470 ml 1010 ml OutputOutput Total 400 ml 300 ml BalanceBalance 50 ml 70 ml 710 ml Constitutional: alert, oriented, well developed Psych: nl mood/affect Eyes: nl lids, nl sclera ENMT: nl external ears & nose Neck: non-tender Respiratory: clear to auscultation, diminished breath sounds Cardiovascular: nl pulses, other (s1s2) Gastrointestinal: soft, non-tender Musculoskeletal: nl extremities to inspection Extremities: edema Neurological: nl mental status, nl speech Skin: other (RUE-DVT Positive) Results Result Diagram: 08/21/18 0623 08/21/18 0623 Results 24hrs Laboratory Tests Test 08/21/18 06:23 White Blood Count 5.6 Red Blood Count 3.31 L Hemoglobin 9.1 L Hematocrit 30.6 L Mean Corpuscular Volume 92.4 Mean Corpuscular Hemoglobin 27.5 L Mean Corpuscular Hemoglobin Concent 29.7 L Red Cell Distribution Width 14.6 H Platelet Count 297 Mean Platelet Volume 9.7 Immature Granulocytes % 0.400 Neutrophils % 42.8 Lymphocytes % 45.9 Monocytes % 7.9 Eosinophils % 2.5 Basophils % 0.5 Nucleated Red Blood Cells % 0.0 Immature Granulocytes # 0.020 Neutrophils # 2.4 Lymphocytes # 2.6 Monocytes # 0.4 Eosinophils # 0.1 Basophils # 0.0 Nucleated Red Blood Cells # 0.0 Sodium Level 141 Potassium Level 4.0 Chloride Level 107 Carbon Dioxide Level 27 Anion Gap 7 Blood Urea Nitrogen 15 Creatinine 0.53 Est Glomerular Filtrat Rate mL/min > 60 Glucose Level 101 Calcium Level 8.8 Phosphorus Level 5.0 H Magnesium Level 1.5 L Medications Medication Current Medications Morphine Sulfate (morphine) 2 mg Q4 PRN IV CRIES SCALE 5-7 Last administered on 08/21/18at 12:01; Admin Dose 2 MG; Start 08/15/18 at 12:00 IV Flush (NS 3 ml) 3 ml PER PROTOCOL IV ; Start 08/15/18 at 14:00 Ondansetron HCl (Zofran Inj) 4 mg Q6H PRN IV NAUSEA/VOMITING; Start 08/15/18 at 14:00 Acetaminophen (Tylenol Tab) 650 mg Q6H PRN PO .PAIN 1-3 OR TEMP; Start 08/15/18 at 14:00 Acetaminophen/ Hydrocodone Bitart ([place] (5/325)) 1 tab Q6H PRN PO .MOD PAIN 4- 6; Start 08/15/18 at 14:00 Docusate Sodium (Colace) 100 mg Q12H PRN PO .CONSTIPATION; Start 08/15/18 at 14: 00 Magnesium Hydroxide (Milk Of Mag) 30 ml DAILY PRN PO .CONSTIPATION; Start 08/15/18 at 14:00 Bisacodyl (Dulcolax Supp) 10 mg DAILY PRN [place] .CONSTIPATION; Start 08/15/18 at 14:00 Cefazolin Sodium/ Dextrose 50 ml @ 100 mls/hr Q8 IVPB Last administered on 08/21/18at 13:30; Admin Dose 100 MLS/HR; Start 08/15/18 at 14:00 Alprazolam (Xanax) 1 mg BID PRN PO ANXIETY Last administered on 08/21/18 06:31; Admin Dose 1 MG; Start 08/15/18 at 14:30 Hydromorphone HCl (Dilaudid) 1 mg Q4H PRN IV .SEVERE PAIN 7-10 Last administered on 08/21/18 10:16; Admin Dose 1 MG; Start 08/16/18 at 12:00 Pantoprazole (Protonix Tab) 40 mg DAILY@06 PO Last administered on 08/21/18 06:22; Admin Dose 40 MG; Start 08/18/18 at 06:00 Acetaminophen/ Hydrocodone Bitart ([place] (10/325)) 1 tab Q4H PRN PO MODERATE PAIN LEVEL 4-6 Last administered on 08/21/18 08:38; Admin Dose 1 TAB; Start 08/18/18 at 11:00 Apixaban (Eliquis) 10 mg BID PO Last administered on 08/21/18 08:37; Admin Dose 10 MG; Start 08/18/18 at 21:00; Stop 08/25/18 at 20:59 Apixaban (Eliquis) 5 mg BID PO ; Start 08/26/18 at 21:00 Metoprolol Tartrate (Lopressor) 25 mg BID PO Last administered on 08/21/18 08:38; Admin Dose 25 MG; Start 08/19/18 at 21:00 ZBIGNIEW HUNTER Aug 21, 2018 13:53
--- NOTE | 2018-08-21 15:44 | CONS ---
Assessment/Plan Assessment/Plan Hospital Course (Demo Recall) IMPRESSION: 1. History of recently diagnosed endocarditis, assess for ongoing infection.- Bld cx remain NTD and TTE was without sig valvular findings this admit 2. Tachycardia, borderline consistent with sinus tachycardia-ongoing mild 3. Hypertension, labile may be related to pain, currently improved, off of antihypertensives recently today. 4. Deep venous thrombosis of the right extremity, likely secondary to PICC line that was in place. 5. Anemia. 6. Psychiatric disorder. Recc: -Now on med-surg -serial ecg's -Continue abx's and f/u cx data closely -Continue eliquis -Continue low dose BB with improved HR/BP overall Consultation Date/Type/Reason Admit Date/Time Aug 15, 2018 at 10:07 Initial Consult Date 08/17/18 Type of Consult Cardiology Reason for Consultation endocarditis/HTN Requesting Provider: JHOANA CAMPA NP Date/Time of Note DATE: 08/21/18 TIME: 15:42 Exam/Review of Systems Vital Signs Vitals Vital Signs Date Temp Pulse Resp B/P (MAP) Pulse Ox O2 O2 Flow FiO2 Time Delivery Rate 08/21/18 98.7 100 18 127/59 100 08:49 (81) 08/20/18 Room Air 02:37 Intake and Output 08/20/18 08/20/18 08/21/18 1515:00 23:00 07:00 IntakeIntake Total 50 ml 470 ml 1010 ml OutputOutput Total 400 ml 300 ml BalanceBalance 50 ml 70 ml 710 ml Exam Exam Review of Systems: CONSTITUTIONAL: No fevers, chills. PULMONARY: No sob CARDIOVASCULAR: No chest pain/palpitations GASTROINTESTINAL: No nausea/vomiting. GENITOURINARY: No hematuria/dysuria. MUSCULOSKELETAL: No myagias/arthalgias. PSYCHIATRIC: The patient denies depression. NEUROLOGIC: No weakness Constitutional: other (sleeping, easily arousable) Psych: no complaints Head: normocephalic ENMT: mucosa pink and moist Neck: supple, jvd (9 cm water) Respiratory: clear to auscultation Cardiovascular: regular rate and rhythm Gastrointestinal: soft, non-tender Musculoskeletal: muscle tone (normal) Extremities: edema (LUE) Neurological: other (No focal deficits) Labs Result Diagram: 7/13/19 0623 7/13/19 0623 Results 24hrs Laboratory Tests Test 08/21/18 06:23 White Blood Count 5.6 Red Blood Count 3.31 L Hemoglobin 9.1 L Hematocrit 30.6 L Mean Corpuscular Volume 92.4 Mean Corpuscular Hemoglobin 27.5 L Mean Corpuscular Hemoglobin Concent 29.7 L Red Cell Distribution Width 14.6 H Platelet Count 297 Mean Platelet Volume 9.7 Immature Granulocytes % 0.400 Neutrophils % 42.8 Lymphocytes % 45.9 Monocytes % 7.9 Eosinophils % 2.5 Basophils % 0.5 Nucleated Red Blood Cells % 0.0 Immature Granulocytes # 0.020 Neutrophils # 2.4 Lymphocytes # 2.6 Monocytes # 0.4 Eosinophils # 0.1 Basophils # 0.0 Nucleated Red Blood Cells # 0.0 Sodium Level 141 Potassium Level 4.0 Chloride Level 107 Carbon Dioxide Level 27 Anion Gap 7 Blood Urea Nitrogen 15 Creatinine 0.53 Est Glomerular Filtrat Rate mL/min > 60 Glucose Level 101 Calcium Level 8.8 Phosphorus Level 5.0 H Magnesium Level 1.5 L Medications Medications Current Medications Morphine Sulfate (morphine) 2 mg Q4 PRN IV CRIES SCALE 5-7 Last administered on 08/21/18at 12:01; Admin Dose 2 MG; Start 08/15/18 at 12:00 IV Flush (NS 3 ml) 3 ml PER PROTOCOL IV ; Start 08/15/18 at 14:00 Ondansetron HCl (Zofran Inj) 4 mg Q6H PRN IV NAUSEA/VOMITING; Start 08/15/18 at 14:00 Acetaminophen (Tylenol Tab) 650 mg Q6H PRN PO .PAIN 1-3 OR TEMP; Start 08/15/18 at 14:00 Acetaminophen/ Hydrocodone Bitart ([place] (5/325)) 1 tab Q6H PRN PO .MOD PAIN 4- 6; Start 08/15/18 at 14:00 Docusate Sodium (Colace) 100 mg Q12H PRN PO .CONSTIPATION; Start 08/15/18 at 14:00 Magnesium Hydroxide (Milk Of Mag) 30 ml DAILY PRN PO .CONSTIPATION; Start 08/15/18 at 14:00 Bisacodyl (Dulcolax Supp) 10 mg DAILY PRN [place] .CONSTIPATION; Start 08/15/18 at 14:00 Cefazolin Sodium/ Dextrose 50 ml @ 100 mls/hr Q8 IVPB Last administered on 08/21/18 13:30; Admin Dose 100 MLS/HR; Start 08/15/18 at 14:00 Alprazolam (Xanax) 1 mg BID PRN PO ANXIETY Last administered on 08/21/18 06:31; Admin Dose 1 MG; Start 08/15/18 at 14:30 Hydromorphone HCl (Dilaudid) 1 mg Q4H PRN IV .SEVERE PAIN 7-10 Last administered on 08/21/18 10:16; Admin Dose 1 MG; Start 08/16/18 at 12:00 Pantoprazole (Protonix Tab) 40 mg DAILY@06 PO Last administered on 08/21/18 06:22; Admin Dose 40 MG; Start 08/18/18 at 06:00 Acetaminophen/ Hydrocodone Bitart ([place] (10/325)) 1 tab Q4H PRN PO MODERATE PAIN LEVEL 4-6 Last administered on 08/21/18 08:38; Admin Dose 1 TAB; Start 08/18/18 at 11:00 Apixaban (Eliquis) 10 mg BID PO Last administered on 08/21/18 08:37; Admin Dose 10 MG; Start 08/18/18 at 21:00; Stop 08/25/18 at 20:59 Apixaban (Eliquis) 5 mg BID PO ; Start 08/26/18 at 21:00 Metoprolol Tartrate (Lopressor) 25 mg BID PO Last administered on 08/21/18 08:38; Admin Dose 25 MG; Start 08/19/18 at 21:00 KI PEACE Aug 21, 2018 15:43
--- NOTE | 2018-08-21 16:25 | CONS ---
Consultation Date/Type/Reason Admit Date/Time Aug 15, 2018 at 10:07 Initial Consult Date 08/17/18 Type of Consult SUBJECTIVE: Pt is awake, alert, afebrile. VS: stable T: 98.7 tachy 100 LABs: Reviewed. WBC- 5.6 Microbiology: Blood cultures negative x2 PROCEDURE: Ultrasound examination of the left lower extremity with Doppler. CLINICAL INDICATION: Left leg pain and swelling. TECHNIQUE: Multiple sonographic images of the left lower extremity veins were performed with baker scale and color Doppler. COMPARISON: None. FINDINGS: The left common femoral, superficial femoral and popliteal veins demonstrate normal color flow, waveforms, compression and response to augmentation. There is no evidence of deep venous thrombosis. IMPRESSION: No evidence of deep venous thrombosis within the left lower extremity. Antimicrobials: Ancef Physical examination: GEN: Obese well-developed middle-aged woman, who is alert in no distress. HENT: Head atraumatic normocephalic; neck is supple PULM: chest rise symmetrical breath sounds clear Heart: S1-S2 Abdomen: soft, bowel sounds present Extremities with right upper extremity edema Assessment: 1. Right upper extremity DVT 2. TV endocarditis 3. Obesity 4. History of MSSA bacteremia 07/12/18 Plan: Pt is stable. Venous Doppler today noted. Continue on current antibiotics to complete 6 weeks==> last dose 08/24. Pain management and anticoagulation therapy. Requesting Provider: JHOANA CAMPA NP Date/Time of Note DATE: 08/21/18 TIME: 16:20 Exam/Review of Systems Exam Vitals Vital Signs Date Temp Pulse Resp B/P (MAP) Pulse Ox O2 O2 Flow FiO2 Time Delivery Rate 08/21/18 98.7 100 18 127/59 100 08:49 (81) 08/20/18 Room Air 02:37 Intake and Output 08/20/18 08/20/18 08/21/18 1515:00 23:00 07:00 IntakeIntake Total 50 ml 470 ml 1010 ml OutputOutput Total 400 ml 300 ml BalanceBalance 50 ml 70 ml 710 ml Results Result Diagram: 08/21/18 0623 08/21/18 0623 Results 24hrs Laboratory Tests Test 08/21/18 06:23 White Blood Count 5.6 Red Blood Count 3.31 L Hemoglobin 9.1 L Hematocrit 30.6 L Mean Corpuscular Volume 92.4 Mean Corpuscular Hemoglobin 27.5 L Mean Corpuscular Hemoglobin Concent 29.7 L Red Cell Distribution Width 14.6 H Platelet Count 297 Mean Platelet Volume 9.7 Immature Granulocytes % 0.400 Neutrophils % 42.8 Lymphocytes % 45.9 Monocytes % 7.9 Eosinophils % 2.5 Basophils % 0.5 Nucleated Red Blood Cells % 0.0 Immature Granulocytes # 0.020 Neutrophils # 2.4 Lymphocytes # 2.6 Monocytes # 0.4 Eosinophils # 0.1 Basophils # 0.0 Nucleated Red Blood Cells # 0.0 Sodium Level 141 Potassium Level 4.0 Chloride Level 107 Carbon Dioxide Level 27 Anion Gap 7 Blood Urea Nitrogen 15 Creatinine 0.53 Est Glomerular Filtrat Rate mL/min > 60 Glucose Level 101 Calcium Level 8.8 Phosphorus Level 5.0 H Magnesium Level 1.5 L Medications Medication Current Medications Morphine Sulfate (morphine) 2 mg Q4 PRN IV CRIES SCALE 5-7 Last administered on 08/21/18at 12:01; Admin Dose 2 MG; Start 08/15/18 at 12:00 IV Flush (NS 3 ml) 3 ml PER PROTOCOL IV ; Start 08/15/18 at 14:00 Ondansetron HCl (Zofran Inj) 4 mg Q6H PRN IV NAUSEA/VOMITING; Start 08/15/18 at 14:00 Acetaminophen (Tylenol Tab) 650 mg Q6H PRN PO .PAIN 1-3 OR TEMP; Start 08/15/18 at 14:00 Acetaminophen/ Hydrocodone Bitart ([place] (5/325)) 1 tab Q6H PRN PO .MOD PAIN 4- 6; Start 08/15/18 at 14:00 Docusate Sodium (Colace) 100 mg Q12H PRN PO .CONSTIPATION; Start 08/15/18 at 14: 00 Magnesium Hydroxide (Milk Of Mag) 30 ml DAILY PRN PO .CONSTIPATION; Start 08/15/18 at 14:00 Bisacodyl (Dulcolax Supp) 10 mg DAILY PRN [place] .CONSTIPATION; Start 08/15/18 at 14:00 Cefazolin Sodium/ Dextrose 50 ml @ 100 mls/hr Q8 IVPB Last administered on 08/21/18at 13:30; Admin Dose 100 MLS/HR; Start 08/15/18 at 14:00 Alprazolam (Xanax) 1 mg BID PRN PO ANXIETY Last administered on 08/21/18at 06:31; Admin Dose 1 MG; Start 08/15/18 at 14:30 Hydromorphone HCl (Dilaudid) 1 mg Q4H PRN IV .SEVERE PAIN 7-10 Last administered on 08/21/18at 15:47; Admin Dose 1 MG; Start 08/16/18 at 12:00 Pantoprazole (Protonix Tab) 40 mg DAILY@06 PO Last administered on 08/21/18at 06:22; Admin Dose 40 MG; Start 08/18/18 at 06:00 Acetaminophen/ Hydrocodone Bitart ([place] (10/325)) 1 tab Q4H PRN PO MODERATE PAIN LEVEL 4-6 Last administered on 08/21/18at 08:38; Admin Dose 1 TAB; Start 08/18/18 at 11:00 Apixaban (Eliquis) 10 mg BID PO Last administered on 08/21/18at 08:37; Admin Dose 10 MG; Start 08/18/18 at 21:00; Stop 08/25/18 at 20:59 Apixaban (Eliquis) 5 mg BID PO ; Start 08/26/18 at 21:00 Metoprolol Tartrate (Lopressor) 25 mg BID PO Last administered on 08/21/18at 08:38; Admin Dose 25 MG; Start 08/19/18 at 21:00 LI TREVINO Aug 21, 2018 16:25
[2018-08-21 19:10] VITALS: BP 148/78; PULSE 99; RESP 20
[2018-08-21 19:19] VITALS: BP 122/60; PULSE 94; RESP 18
[2018-08-22] MEDS: HYDROCODONE/APAP (10/325) TAB PO PRN ×5 (00:31→20:42)
[2018-08-22 02:03] VITALS: BP 131/65; PULSE 98; RESP 18
[2018-08-22] MEDS: morphine 2 MG INJ IV PRN ×5 (02:49→23:27)
[2018-08-22] MEDS ORDERED: HYDROmorphONE 1 MG/ML SYG IV ONE (03:21)
[2018-08-22] MEDS: HYDROmorphONE 0.5 MG/0.5 ML SYG IV PRN ×5 (04:05→22:35)
[2018-08-22] MEDS: PANTOPRAZOLE (EC) 40 MG TAB PO SCH (06:09)
[2018-08-22] MEDS: CEFAZOLIN 2 GM/50 ML (PMX) 50 ML IVPB SCH ×3 (06:10→21:43)
[2018-08-22] MEDS: ALPRAZOLAM 1 MG TAB PO PRN ×2 (08:16→20:41)
[2018-08-22] MEDS: APIXABAN 5 MG TABLET PO SCH ×2 (08:17→20:42)
[2018-08-22] MEDS: METOPROLOL 25 MG TAB PO SCH ×2 (08:17→20:42)
[2018-08-22 08:37] VITALS: BP 140/81; PULSE 78; RESP 18
--- NOTE | 2018-08-22 09:23 | PN ---
Date/Time of Note Date/Time of Note DATE: 08/22/18 TIME: 09:22 Assessment/Plan VTE Prophylaxis Risk score (from Nsg)>0 risk: 4 SCD applied (from Nsg): Yes Pharmacological prophylaxis: apixaban Lines/Catheters IV Catheter Type (from Nrsg): PICC Line Central line still needed: Yes Urinary Cath still in place: No Assessment/Plan Hospital Course SUBJECTIVE: Continues to complains of right upper extremity pain. Patient still asking for pain medications [id number]. OBJECTIVE: Physical Exam General: Morbidly obese, 32 year-old female lying in bed in no apparent distress. HEENT: Normocephalic, atraumatic. Eyes: Anicteric sclerae, conjunctivae clear. ENT: Nasal septum midline, oral mucosa moist. Neck supple, no JVD noticed. Respiratory: Bilaterally diminished breath sounds. No use of accessory muscles of respiration. No adventitious breath sounds. Cardiovascular: S1, S2 heard. Tachycardia. Abdomen: Soft, nontender, and nondistended. Bowel sounds positive in all 4 quadrants. Genitourinary: Deferred. Extremities: No cyanosis, no clubbing. Right upper extremity edema. Peripheral pulses palpable. Edema and warmth in the right biceps all the way into the axilla. Neurologic: Cranial nerves II through XII grossly intact. The patient is awake, alert, and oriented. Skin: Normal skin turgor. Multiple tattoos. Labs & Vitals per chart ASSESSMENT & PLAN 32-year-old F with comorbidities including morbid obesity (BMI>42 kg/m), reported history of endocarditis, and anxiety disorder who was recently admitted to [facility] and was discharged home on July 18, 2018 with a PICC line for antibiotics for total of 6 weeks. The patient returned to [facility] with chief complaint of right upper extremity pain at the site of PICC with DVT on the RUE and her PICC was replaced on LUE; transferred to [facility] for because of insurance reasons. 1. Extensive DVT of the right upper extremity. S/P heparin drip. Started on factor Xa inhibitors on 08/18/2018. Hematology following. 2. Reported history of endocarditis. Continue Ancef as per ID recommendations. Cardiology following 2D echo results noted. 3. Morbid obesity. BMI more than 42 kg/m. Advised weight reduction. 4. Anxiety disorder. Continue PRN anxiolytics. 5. Normocytic anemia. Etiology unclear. Monitor H&H closely. 6. Fluids, electrolytes, and nutrition. Regular diet. 7. DVT prophylaxis. On Apixaban. 8. Plan. Continue antibiotics as per ID. Continue Eliquis. Await further recommendations from consultants. DC planning is to home once clinically stable. The patient was seen in collaboration with Dr. Herrera. Result Diagram: 08/22/18 0435 08/22/18 0435 Results 24hrs Laboratory Tests Test 08/22/18 04:35 White Blood Count 5.2 Red Blood Count 3.21 L Hemoglobin 8.9 L Hematocrit 29.7 L Mean Corpuscular Volume 92.5 Mean Corpuscular Hemoglobin 27.7 L Mean Corpuscular Hemoglobin Concent 30.0 L Red Cell Distribution Width 14.6 H Platelet Count 295 Mean Platelet Volume 9.7 Immature Granulocytes % 0.400 Neutrophils % 41.2 Lymphocytes % 47.2 Monocytes % 8.9 Eosinophils % 1.7 Basophils % 0.6 Nucleated Red Blood Cells % 0.0 Immature Granulocytes # 0.020 Neutrophils # 2.1 Lymphocytes # 2.4 Monocytes # 0.5 Eosinophils # 0.1 Basophils # 0.0 Nucleated Red Blood Cells # 0.0 Sodium Level 138 Potassium Level 4.6 Chloride Level 104 Carbon Dioxide Level 29 Anion Gap 5 Blood Urea Nitrogen 15 Creatinine 0.56 Est Glomerular Filtrat Rate mL/min > 60 Glucose Level 92 Calcium Level 8.8 Phosphorus Level 4.4 Magnesium Level 1.7 Exam/Review of Systems Exam Vitals Vital Signs Date Temp Pulse Resp B/P (MAP) Pulse Ox O2 O2 Flow FiO2 Time Delivery Rate 08/22/18 98.2 78 18 140/81 100 08:37 (100) 08/20/18 Room Air 02:37 Intake and Output 08/21/18 08/21/18 08/22/18 1414:59 22:59 06:59 IntakeIntake Total 600 ml 350 ml 50 ml BalanceBalance 600 ml 350 ml 50 ml Results Results 24hrs Laboratory Tests Test 08/22/18 04:35 White Blood Count 5.2 Red Blood Count 3.21 L Hemoglobin 8.9 L Hematocrit 29.7 L Mean Corpuscular Volume 92.5 Mean Corpuscular Hemoglobin 27.7 L Mean Corpuscular Hemoglobin Concent 30.0 L Red Cell Distribution Width 14.6 H Platelet Count 295 Mean Platelet Volume 9.7 Immature Granulocytes % 0.400 Neutrophils % 41.2 Lymphocytes % 47.2 Monocytes % 8.9 Eosinophils % 1.7 Basophils % 0.6 Nucleated Red Blood Cells % 0.0 Immature Granulocytes # 0.020 Neutrophils # 2.1 Lymphocytes # 2.4 Monocytes # 0.5 Eosinophils # 0.1 Basophils # 0.0 Nucleated Red Blood Cells # 0.0 Sodium Level 138 Potassium Level 4.6 Chloride Level 104 Carbon Dioxide Level 29 Anion Gap 5 Blood Urea Nitrogen 15 Creatinine 0.56 Est Glomerular Filtrat Rate mL/min > 60 Glucose Level 92 Calcium Level 8.8 Phosphorus Level 4.4 Magnesium Level 1.7 Medications Medication Current Medications Morphine Sulfate (morphine) 2 mg Q4 PRN IV CRIES SCALE 5-7 Last administered on 08/22/18at 02:49; Admin Dose 2 MG; Start 08/15/18 at 12:00 IV Flush (NS 3 ml) 3 ml PER PROTOCOL IV Last administered on 08/22/18at 04:07; Admin Dose 3 ML; Start 08/15/18 at 14:00 Ondansetron HCl (Zofran Inj) 4 mg Q6H PRN IV NAUSEA/VOMITING; Start 08/15/18 at 14:00 Acetaminophen (Tylenol Tab) 650 mg Q6H PRN PO .PAIN 1-3 OR TEMP; Start 08/15/18 at 14:00 Acetaminophen/ Hydrocodone Bitart ([place] (5/325)) 1 tab Q6H PRN PO .MOD PAIN 4- 6; Start 08/15/18 at 14:00 Docusate Sodium (Colace) 100 mg Q12H PRN PO .CONSTIPATION; Start 08/15/18 at 14:00 Magnesium Hydroxide (Milk Of Mag) 30 ml DAILY PRN PO .CONSTIPATION; Start 08/15/18 at 14:00 Bisacodyl (Dulcolax Supp) 10 mg DAILY PRN [place] .CONSTIPATION; Start 08/15/18 at 14:00 Cefazolin Sodium/ Dextrose 50 ml @ 100 mls/hr Q8 IVPB Last administered on 08/22/18at 06:10; Admin Dose 100 MLS/HR; Start 08/15/18 at 14:00 Alprazolam (Xanax) 1 mg BID PRN PO ANXIETY Last administered on 08/22/18 08:16; Admin Dose 1 MG; Start 08/15/18 at 14:30 Hydromorphone HCl (Dilaudid) 1 mg Q4H PRN IV .SEVERE PAIN 7-10 Last administered on 08/22/18 08:17; Admin Dose 1 MG; Start 08/16/18 at 12:00 Pantoprazole (Protonix Tab) 40 mg DAILY@06 PO Last administered on 08/22/18 06:09; Admin Dose 40 MG; Start 08/18/18 at 06:00 Acetaminophen/ Hydrocodone Bitart ([place] (10/325)) 1 tab Q4H PRN PO MODERATE PAIN LEVEL 4-6 Last administered on 08/22/18 06:09; Admin Dose 1 TAB; Start 08/18/18 at 11:00 Apixaban (Eliquis) 10 mg BID PO Last administered on 08/22/18 08:17; Admin Dose 10 MG; Start 08/18/18 at 21:00; Stop 08/25/18 at 20:59 Apixaban (Eliquis) 5 mg BID PO ; Start 08/26/18 at 21:00 Metoprolol Tartrate (Lopressor) 25 mg BID PO Last administered on 08/22/18 08:17; Admin Dose 25 MG; Start 08/19/18 at 21:00 JHOANA CAMPA NP Aug 22, 2018 09:23
--- NOTE | 2018-08-22 12:25 | CONS ---
Consultation Date/Type/Reason Admit Date/Time Aug 15, 2018 at 10:07 Initial Consult Date 08/17/18 Type of Consult SUBJECTIVE: Pt is awake, alert, afebrile.No acute events over night VS: stable T: 98.2 LABs: Reviewed. WBC- 5.2 Microbiology: Blood cultures negative x2 PROCEDURE: Ultrasound examination of the left lower extremity with Doppler. CLINICAL INDICATION: Left leg pain and swelling. TECHNIQUE: Multiple sonographic images of the left lower extremity veins were performed with baker scale and color Doppler. COMPARISON: None. FINDINGS: The left common femoral, superficial femoral and popliteal veins demonstrate normal color flow, waveforms, compression and response to augmentation. There is no evidence of deep venous thrombosis. IMPRESSION: No evidence of deep venous thrombosis within the left lower extremity. Antimicrobials: Ancef Physical examination: GEN: Obese well-developed middle-aged woman, who is alert in no distress. HENT: Head atraumatic normocephalic; neck is supple PULM: chest rise symmetrical breath sounds clear Heart: S1-S2 Abdomen: soft, bowel sounds present Extremities with right upper extremity edema Assessment: 1. Right upper extremity DVT 2. TV endocarditis 3. Obesity 4. History of MSSA bacteremia 07/12/18 Plan: Pt is stable. Continue on current antibiotics to complete 6 weeks==> last dose 08/24. Pain management and anticoagulation therapy. Requesting Provider: JHOANA CAMPA NP Date/Time of Note DATE: 08/22/18 TIME: 12:24 Exam/Review of Systems Exam Vitals Vital Signs Date Temp Pulse Resp B/P (MAP) Pulse Ox O2 O2 Flow FiO2 Time Delivery Rate 08/22/18 98.2 78 18 140/81 100 08:37 (100) 08/20/18 Room Air 02:37 Intake and Output 08/21/18 08/21/18 08/22/18 1515:00 23:00 07:00 IntakeIntake Total 600 ml 350 ml 50 ml BalanceBalance 600 ml 350 ml 50 ml Results Result Diagram: 08/22/18 0435 08/22/18 0435 Results 24hrs Laboratory Tests Test 08/22/18 04:35 White Blood Count 5.2 Red Blood Count 3.21 L Hemoglobin 8.9 L Hematocrit 29.7 L Mean Corpuscular Volume 92.5 Mean Corpuscular Hemoglobin 27.7 L Mean Corpuscular Hemoglobin Concent 30.0 L Red Cell Distribution Width 14.6 H Platelet Count 295 Mean Platelet Volume 9.7 Immature Granulocytes % 0.400 Neutrophils % 41.2 Lymphocytes % 47.2 Monocytes % 8.9 Eosinophils % 1.7 Basophils % 0.6 Nucleated Red Blood Cells % 0.0 Immature Granulocytes # 0.020 Neutrophils # 2.1 Lymphocytes # 2.4 Monocytes # 0.5 Eosinophils # 0.1 Basophils # 0.0 Nucleated Red Blood Cells # 0.0 Sodium Level 138 Potassium Level 4.6 Chloride Level 104 Carbon Dioxide Level 29 Anion Gap 5 Blood Urea Nitrogen 15 Creatinine 0.56 Est Glomerular Filtrat Rate mL/min > 60 Glucose Level 92 Calcium Level 8.8 Phosphorus Level 4.4 Magnesium Level 1.7 Medications Medication Current Medications Morphine Sulfate (morphine) 2 mg Q4 PRN IV CRIES SCALE 5-7 Last administered on 08/22/18at 09:57; Admin Dose 2 MG; Start 08/15/18 at 12:00 IV Flush (NS 3 ml) 3 ml PER PROTOCOL IV Last administered on 08/22/18at 04:07; Admin Dose 3 ML; Start 08/15/18 at 14:00 Ondansetron HCl (Zofran Inj) 4 mg Q6H PRN IV NAUSEA/VOMITING; Start 08/15/18 at 14:00 Acetaminophen (Tylenol Tab) 650 mg Q6H PRN PO .PAIN 1-3 OR TEMP; Start 08/15/18 at 14:00 Acetaminophen/ Hydrocodone Bitart ([place] (5/325)) 1 tab Q6H PRN PO .MOD PAIN 4- 6; Start 08/15/18 at 14:00 Docusate Sodium (Colace) 100 mg Q12H PRN PO .CONSTIPATION; Start 08/15/18 at 14:00 Magnesium Hydroxide (Milk Of Mag) 30 ml DAILY PRN PO .CONSTIPATION; Start 08/15/18 at 14:00 Bisacodyl (Dulcolax Supp) 10 mg DAILY PRN OR .CONSTIPATION; Start 08/15/18 at 14:00 Cefazolin Sodium/ Dextrose 50 ml @ 100 mls/hr Q8 IVPB Last administered on 08/22/18 06:10; Admin Dose 100 MLS/HR; Start 08/15/18 at 14:00 Alprazolam (Xanax) 1 mg BID PRN PO ANXIETY Last administered on 08/22/18at 08:16; Admin Dose 1 MG; Start 08/15/18 at 14:30 Hydromorphone HCl (Dilaudid) 1 mg Q4H PRN IV .SEVERE PAIN 7-10 Last administered on 08/22/18 08:17; Admin Dose 1 MG; Start 08/16/18 at 12:00 Pantoprazole (Protonix Tab) 40 mg DAILY@06 PO Last administered on 08/22/18 06:09; Admin Dose 40 MG; Start 08/18/18 at 06:00 Acetaminophen/ Hydrocodone Bitart ([place] (10/325)) 1 tab Q4H PRN PO MODERATE PA IN LEVEL 4-6 Last administered on 08/22/18at 10:40; Admin Dose 1 TAB; Start 08/18/18 at 11:00 Apixaban (Eliquis) 10 mg BID PO Last administered on 08/22/18 08:17; Admin Dose 10 MG; Start 08/18/18 at 21:00; Stop 08/25/18 at 20:59 Apixaban (Eliquis) 5 mg BID PO ; Start 08/26/18 at 21:00 Metoprolol Tartrate (Lopressor) 25 mg BID PO Last administered on 08/22/18 08:17; Admin Dose 25 MG; Start 08/19/18 at 21:00 LI TREVINO Aug 22, 2018 12:25
--- NOTE | 2018-08-22 12:59 | CONS ---
Assessment/Plan Assessment/Plan Assessment/Plan (Daily) #RUE DVT - related to prior PICC line -continue eliquis 10mgpo BID x 7 days then down to 5mg po BID #CHF - management per PMD #endocarditis - management per ID Will perform hyper coagulable workup as an out patient, especially given her family history of clotting. at bed side- all Qs answered. Patient seen in collaboration with Dr Riggs. [facility] staff Consultation Date/Type/Reason Admit Date/Time Aug 15, 2018 at 10:07 Initial Consult Date 08/17/18 Type of Consult Hematology/ oncology Reason for Consultation RUE DVT Requesting Provider: JHOANA CAMPA NP Date/Time of Note DATE: 08/22/18 TIME: 12:59 24 HR Interval Summary Free Text/Dictation no events overnight Detailed Summary Eyes: no complaints ENT: no complaints Respiratory: no complaints Cardiovascular: no complaints Gastrointestinal: no complaints Genitourinary: no complaints Musculoskeletal: no complaints Skin: erythema (RUE- improving) Neurologic: no complaints Endocrine: no complaints Lymphatic: no complaints Psychological: nl mood/affect Immunologic: no complaints Exam/Review of Systems Exam Vitals Vital Signs Date Temp Pulse Resp B/P (MAP) Pulse Ox O2 O2 Flow FiO2 Time Delivery Rate 08/22/18 98.2 78 18 140/81 100 08:37 (100) 08/20/18 Room Air 02:37 Intake and Output 08/21/18 08/21/18 08/22/18 1515:00 23:00 07:00 IntakeIntake Total 600 ml 350 ml 50 ml BalanceBalance 600 ml 350 ml 50 ml Constitutional: alert, oriented, well developed, obese Psych: nl mood/affect Head: normocephalic Eyes: nl lids, nl sclera ENMT: nl external ears & nose Neck: non-tender Respiratory: clear to auscultation Cardiovascular: nl pulses, other (s1s2) Gastrointestinal: soft, non-tender Musculoskeletal: nl extremities to inspection Extremities: edema Neurological: nl mental status Lymph: nontender Results Result Diagram: 08/22/18 0435 08/22/18 0435 Results 24hrs Laboratory Tests Test 08/22/18 04:35 White Blood Count 5.2 Red Blood Count 3.21 L Hemoglobin 8.9 L Hematocrit 29.7 L Mean Corpuscular Volume 92.5 Mean Corpuscular Hemoglobin 27.7 L Mean Corpuscular Hemoglobin Concent 30.0 L Red Cell Distribution Width 14.6 H Platelet Count 295 Mean Platelet Volume 9.7 Immature Granulocytes % 0.400 Neutrophils % 41.2 Lymphocytes % 47.2 Monocytes % 8.9 Eosinophils % 1.7 Basophils % 0.6 Nucleated Red Blood Cells % 0.0 Immature Granulocytes # 0.020 Neutrophils # 2.1 Lymphocytes # 2.4 Monocytes # 0.5 Eosinophils # 0.1 Basophils # 0.0 Nucleated Red Blood Cells # 0.0 Sodium Level 138 Potassium Level 4.6 Chloride Level 104 Carbon Dioxide Level 29 Anion Gap 5 Blood Urea Nitrogen 15 Creatinine 0.56 Est Glomerular Filtrat Rate mL/min > 60 Glucose Level 92 Calcium Level 8.8 Phosphorus Level 4.4 Magnesium Level 1.7 Medications Medication Current Medications Morphine Sulfate (morphine) 2 mg Q4 PRN IV CRIES SCALE 5-7 Last administered on 08/22/18at 09:57; Admin Dose 2 MG; Start 08/15/18 at 12:00 IV Flush (NS 3 ml) 3 ml PER PROTOCOL IV Last administered on 08/22/18at 04:07; Admin Dose 3 ML; Start 08/15/18 at 14:00 Ondansetron HCl (Zofran Inj) 4 mg Q6H PRN IV NAUSEA/VOMITING; Start 08/15/18 at 14:00 Acetaminophen (Tylenol Tab) 650 mg Q6H PRN PO .PAIN 1-3 OR TEMP; Start 08/15/18 at 14:00 Acetaminophen/ Hydrocodone Bitart ([place] (5/325)) 1 tab Q6H PRN PO .MOD PAIN 4- 6; Start 08/15/18 at 14:00 Docusate Sodium (Colace) 100 mg Q12H PRN PO .CONSTIPATION; Start 08/15/18 at 14:00 Magnesium Hydroxide (Milk Of Mag) 30 ml DAILY PRN PO .CONSTIPATION; Start 08/15/18 at 14:00 Bisacodyl (Dulcolax Supp) 10 mg DAILY PRN [place] .CONSTIPATION; Start 08/15/18 at 14:00 Cefazolin Sodium/ Dextrose 50 ml @ 100 mls/hr Q8 IVPB Last administered on 08/22/18at 06:10; Admin Dose 100 MLS/HR; Start 08/15/18 at 14:00 Alprazolam (Xanax) 1 mg BID PRN PO ANXIETY Last administered on 08/22/18 08:16; Admin Dose 1 MG; Start 08/15/18 at 14:30 Hydromorphone HCl (Dilaudid) 1 mg Q4H PRN IV .SEVERE PAIN 7-10 Last admin istered on 08/22/18 08:17; Admin Dose 1 MG; Start 08/16/18 at 12:00 Pantoprazole (Protonix Tab) 40 mg DAILY@06 PO Last administered on 08/22/18 06:09; Admin Dose 40 MG; Start 08/18/18 at 06:00 Acetaminophen/ Hydrocodone Bitart ([place] (10/325)) 1 tab Q4H PRN PO MODERATE PAIN LEVEL 4-6 Last administered on 08/22/18 10:40; Admin Dose 1 TAB; Start 08/18/18 at 11:00 Apixaban (Eliquis) 10 mg BID PO Last administered on 08/22/18 08:17; Admin Dose 10 MG; Start 08/18/18 at 21:00; Stop 08/25/18 at 20:59 Apixaban (Eliquis) 5 mg BID PO ; Start 08/26/18 at 21:00 Metoprolol Tartrate (Lopressor) 25 mg BID PO Last administered on 08/22/18 08:17; Admin Dose 25 MG; Start 08/19/18 at 21:00 ZBIGNIEW HUNTER Aug 22, 2018 12:59
[2018-08-22 14:15] VITALS: BP 140/79; PULSE 92; RESP 18
--- NOTE | 2018-08-22 14:30 | CONS ---
Assessment/Plan Assessment/Plan Hospital Course (Demo Recall) IMPRESSION: 1. History of recently diagnosed endocarditis, assess for ongoing infection.- Bld cx remain NTD and TTE was without sig valvular findings this admit 2. Tachycardia, borderline consistent with sinus tachycardia-ongoing mild 3. Hypertension, labile may be related to pain, currently improved, off of antihypertensives recently today. 4. Deep venous thrombosis of the right extremity, likely secondary to PICC line that was in place. 5. Anemia. 6. Psychiatric disorder. Recc: -Now on med-surg -serial ecg's -Continue abx's and f/u cx data closely -Continue eliquis -Continue low dose BB with reasonable HR/BP overall Consultation Date/Type/Reason Admit Date/Time Aug 15, 2018 at 10:07 Initial Consult Date 08/17/18 Type of Consult Cardiology Reason for Consultation endocarditis Requesting Provider: JHOANA CAMPA NP Date/Time of Note DATE: 08/22/18 TIME: 14:28 Exam/Review of Systems Vital Signs Vitals Vital Signs Date Temp Pulse Resp B/P (MAP) Pulse Ox O2 O2 Flow FiO2 Time Delivery Rate 08/22/18 98.0 92 18 140/79 97 14:15 (99) 08/20/18 Room Air 02:37 Intake and Output 08/21/18 08/21/18 08/22/18 1515:00 23:00 07:00 IntakeIntake Total 600 ml 350 ml 50 ml BalanceBalance 600 ml 350 ml 50 ml Exam Exam Review of Systems: CONSTITUTIONAL: No fevers, chills. PULMONARY: No sob CARDIOVASCULAR: No chest pain/palpitations GASTROINTESTINAL: No nausea/vomiting. GENITOURINARY: No hematuria/dysuria. MUSCULOSKELETAL: No myagias/arthalgias. PSYCHIATRIC: The patient denies depression. NEUROLOGIC: No weakness Constitutional: alert Psych: no complaints Head: normocephalic ENMT: mucosa pink and moist Neck: supple, jvd (8 cm water) Respiratory: diminished breath sounds Cardiovascular: regular rate and rhythm Gastrointestinal: soft, non-tender Musculoskeletal: muscle tone (normal) Extremities: edema (none) Neurological: other (No focal deficits) Labs Result Diagram: 08/22/18 0435 08/22/18 0435 Results 24hrs Laboratory Tests Test 08/22/18 04:35 White Blood Count 5.2 Red Blood Count 3.21 L Hemoglobin 8.9 L Hematocrit 29.7 L Mean Corpuscular Volume 92.5 Mean Corpuscular Hemoglobin 27.7 L Mean Corpuscular Hemoglobin Concent 30.0 L Red Cell Distribution Width 14.6 H Platelet Count 295 Mean Platelet Volume 9.7 Immature Granulocytes % 0.400 Neutrophils % 41.2 Lymphocytes % 47.2 Monocytes % 8.9 Eosinophils % 1.7 Basophils % 0.6 Nucleated Red Blood Cells % 0.0 Immature Granulocytes # 0.020 Neutrophils # 2.1 Lymphocytes # 2.4 Monocytes # 0.5 Eosinophils # 0.1 Basophils # 0.0 Nucleated Red Blood Cells # 0.0 Sodium Level 138 Potassium Level 4.6 Chloride Level 104 Carbon Dioxide Level 29 Anion Gap 5 Blood Urea Nitrogen 15 Creatinine 0.56 Est Glomerular Filtrat Rate mL/min > 60 Glucose Level 92 Calcium Level 8.8 Phosphorus Level 4.4 Magnesium Level 1.7 Medications Medications Current Medications Morphine Sulfate (morphine) 2 mg Q4 PRN IV CRIES SCALE 5-7 Last administered on 08/22/18at 09:57; Admin Dose 2 MG; Start 08/15/18 at 12:00 IV Flush (NS 3 ml) 3 ml PER PROTOCOL IV Last administered on 08/22/18at 04:07; Admin Dose 3 ML; Start 08/15/18 at 14:00 Ondansetron HCl (Zofran Inj) 4 mg Q6H PRN IV NAUSEA/VOMITING; Start 08/15/18 at 14:00 Acetaminophen (Tylenol Tab) 650 mg Q6H PRN PO .PAIN 1-3 OR TEMP; Start 08/15/18 at 14:00 Acetaminophen/ Hydrocodone Bitart ([place] (5/325)) 1 tab Q6H PRN PO .MOD PAIN 4- 6; Start 08/15/18 at 14:00 Docusate Sodium (Colace) 100 mg Q12H PRN PO .CONSTIPATION; Start 08/15/18 at 14:00 Magnesium Hydroxide (Milk Of Mag) 30 ml DAILY PRN PO .CONSTIPATION; Start 08/15/18 at 14:00 Bisacodyl (Dulcolax Supp) 10 mg DAILY PRN [place] .CONSTIPATION; Start 08/15/18 at 14:00 Cefazolin Sodium/ Dextrose 50 ml @ 100 mls/hr Q8 IVPB Last administered on 08/22/18 14:02; Admin Dose 100 MLS/HR; Start 08/15/18 at 14:00 Alprazolam (Xanax) 1 mg BID PRN PO ANXIETY Last administered on 08/22/18 08:16; Admin Dose 1 MG; Start 08/15/18 at 14:30 Hydromorphone HCl (Dilaudid) 1 mg Q4H PRN IV .SEVERE PAIN 7-10 Last administered on 08/22/18 14:02; Admin Dose 1 MG; Start 08/16/18 at 12:00 Pantoprazole (Protonix Tab) 40 mg DAILY@06 PO Last administered on 08/22/18 06:09; Admin Dose 40 MG; Start 08/18/18 at 06:00 Acetaminophen/ Hydrocodone Bitart ([place] (10/325)) 1 tab Q4H PRN PO MODERATE PAIN LEVEL 4-6 Last administered on 08/22/18 10:40; Admin Dose 1 TAB; Start 08/18/18 at 11:00 Apixaban (Eliquis) 10 mg BID PO Last administered on 08/22/18 08:17; Admin Dose 10 MG; Start 08/18/18 at 21:00; Stop 08/25/18 at 20:59 Apixaban (Eliquis) 5 mg BID PO ; Start 08/26/18 at 21:00 Metoprolol Tartrate (Lopressor) 25 mg BID PO Last administered on 08/22/18 08:17; Admin Dose 25 MG; Start 08/19/18 at 21:00 KI PEACE 14, 2019 14:30
[2018-08-22 20:08] VITALS: BP 138/63; PULSE 91; RESP 18
[2018-08-22] MEDS: ALTEPLASE (CATHFLO) 2 MG INJ CATHETER PRN (21:43)
[2018-08-23] MEDS: ALTEPLASE (CATHFLO) 2 MG INJ CATHETER PRN (00:05)
[2018-08-23] MEDS: HYDROCODONE/APAP (10/325) TAB PO PRN ×5 (00:46→18:24)
[2018-08-23] MEDS: HYDROmorphONE 0.5 MG/0.5 ML SYG IV PRN ×5 (02:34→20:23)
[2018-08-23 02:40] VITALS: BP 130/65; PULSE 99; RESP 16
[2018-08-23] MEDS: morphine 2 MG INJ IV PRN ×5 (03:27→21:45)
[2018-08-23] MEDS: PANTOPRAZOLE (EC) 40 MG TAB PO SCH (06:38)
[2018-08-23] MEDS: CEFAZOLIN 2 GM/50 ML (PMX) 50 ML IVPB SCH ×3 (06:38→22:00)
[2018-08-23 08:03] VITALS: BP 128/67; PULSE 78; RESP 18
[2018-08-23] MEDS: ACETAMINOPHEN 325 MG TAB PO PRN (08:48)
[2018-08-23] MEDS: ALPRAZOLAM 1 MG TAB PO PRN (08:48)
[2018-08-23] MEDS: METOPROLOL 25 MG TAB PO SCH ×2 (08:49→20:36)
[2018-08-23] MEDS: APIXABAN 5 MG TABLET PO SCH (08:49)
--- NOTE | 2018-08-23 10:08 | CONS ---
Assessment/Plan Assessment/Plan Hospital Course (Demo Recall) #RUE DVT - related to prior PICC line #CHF #endocarditis -given the persistent RUE pain, may need to consider vascular surgery consult for potential thrombolysis -continue eliquis 10mgpo BID x 7 days then down to 5mg po BID -will perform hyper coagulable workup as an out patient, especially given her family history of clotting -continue antibiotics for endocarditis Consultation Date/Type/Reason Admit Date/Time Aug 15, 2018 at 10:07 Initial Consult Date 08/17/18 Type of Consult hematology Reason for Consultation RUE DVT Requesting Provider: JHOANA CAMPA NP Date/Time of Note DATE: 08/23/18 TIME: 10:03 24 HR Interval Summary Free Text/Dictation still with excruciating RUE pain Exam/Review of Systems Exam Vitals Vital Signs Date Temp Pulse Resp B/P (MAP) Pulse Ox O2 O2 Flow FiO2 Time Delivery Rate 08/23/18 98.2 78 18 128/67 98 08:03 (87) 08/23/18 Room Air 02:40 Intake and Output 08/22/18 08/22/18 08/23/18 1515:00 23:00 07:00 IntakeIntake Total 350 ml 290 ml BalanceBalance 350 ml 290 ml Constitutional: alert, oriented Psych: anxiety, depression Head: normocephalic Eyes: nl conjunctiva ENMT: nl external ears & nose Neck: supple Respiratory: clear to auscultation Cardiovascular: regular rate and rhythm Gastrointestinal: soft Musculoskeletal: other (RUE pain) Results Result Diagram: 08/23/18 0424 08/23/18 0424 Results 24hrs Laboratory Tests Test 08/23/18 04:24 08/23/18 10:02 White Blood Count 5.1 Red Blood Count 3.08 L Hemoglobin 8.7 L Hematocrit 28.0 L Mean Corpuscular Volume 90.9 Mean Corpuscular Hemoglobin 28.2 L Mean Corpuscular Hemoglobin Concent 31.1 L Red Cell Distribution Width 14.5 Platelet Count 316 Mean Platelet Volume 9.8 Immature Granulocytes % 0.400 Neutrophils % 42.8 Lymphocytes % 45.3 Monocytes % 8.8 Eosinophils % 2.1 Basophils % 0.6 Nucleated Red Blood Cells % 0.0 Immature Granulocytes # 0.020 Neutrophils # 2.2 Lymphocytes # 2.3 Monocytes # 0.5 Eosinophils # 0.1 Basophils # 0.0 Nucleated Red Blood Cells # 0.0 Sodium Level 140 Potassium Level 4.0 Chloride Level 105 Carbon Dioxide Level 28 Anion Gap 7 Blood Urea Nitrogen 13 Creatinine 0.54 Est Glomerular Filtrat Rate mL/min > 60 Glucose Level 109 Calcium Level 8.8 Phosphorus Level 4.6 Magnesium Level 1.6 L Lab Scanned Report REFERENCE LAB Medications Medication Current Medications Morphine Sulfate (morphine) 2 mg Q4 PRN IV CRIES SCALE 5-7 Last administered on 08/23/18 08:49; Admin Dose 2 MG; Start 08/15/18 at 12:00 IV Flush (NS 3 ml) 3 ml PER PROTOCOL IV Last administered on 08/22/18 04:07; Admin Dose 3 ML; Start 08/15/18 at 14:00 Ondansetron HCl (Zofran Inj) 4 mg Q6H PRN IV NAUSEA/VOMITING; Start 08/15/18 at 14:00 Acetaminophen (Tylenol Tab) 650 mg Q6H PRN PO .PAIN 1-3 OR TEMP Last administered on 08/23/18 08:48; Admin Dose 650 MG; Start 08/15/18 at 14:00 Acetaminophen/ Hydrocodone Bitart ([place] (5/325)) 1 tab Q6H PRN PO .MOD PAIN 4- 6; Start 08/15/18 at 14:00 Docusate Sodium (Colace) 100 mg Q12H PRN PO .CONSTIPATION; Start 08/15/18 at 14:00 Magnesium Hydroxide (Milk Of Mag) 30 ml DAILY PRN PO .CONSTIPATION; Start 08/15/18 at 14:00 Bisacodyl (Dulcolax Supp) 10 mg DAILY PRN [place] .CONSTIPATION; Start 08/15/18 at 14:00 Cefazolin Sodium/ Dextrose 50 ml @ 100 mls/hr Q8 IVPB Last administered on 08/23/18 06:38; Admin Dose 100 MLS/HR; Start 08/15/18 at 14:00 Alprazolam (Xanax) 1 mg BID PRN PO ANXIETY Last administered on 08/23/18 08:48; Admin Dose 1 MG; Start 08/15/18 at 14:30 Hydromorphone HCl (Dilaudid) 1 mg Q4H PRN IV .SEVERE PAIN 7-10 Last administered on 08/23/18 06:38; Admin Dose 1 MG; Start 08/16/18 at 12:00 Pantoprazole (Protonix Tab) 40 mg DAILY@06 PO Last administered on 08/23/18 06:38; Admin Dose 40 MG; Start 08/18/18 at 06:00 Acetaminophen/ Hydrocodone Bitart ([place] (10/325)) 1 tab Q4H PRN PO MODERATE PAIN LEVEL 4-6 Last administered on 08/23/18at 09:50; Admin Dose 1 TAB; Start 08/18/18 at 11:00 Apixaban (Eliquis) 10 mg BID PO Last administered on 08/23/18 08:49; Admin Dose 10 MG; Start 08/18/18 at 21:00; Stop 08/25/18 at 20:59 Apixaban (Eliquis) 5 mg BID PO ; Start 08/26/18 at 21:00 Metoprolol Tartrate (Lopressor) 25 mg BID PO Last administered on 08/23/18at 08:49; Admin Dose 25 MG; Start 08/19/18 at 21:00 Alteplase, Recombinant (Cathflo (Activase)) 2 mg MAY REPEAT X1 PRN CATHETER IF CATHETER REMAINS OCCULUDED Last administered on 08/23/18 00:05; Admin Dose 2 MG; Start 08/22/18 at 20:00 ZHANE OMER M.D. Aug 23, 2018 10:08
[2018-08-23] MEDS ORDERED: MAGNESIUM SULFATE 2 GM/50 ML 50 ML IVPB ONE (10:30)
--- NOTE | 2018-08-23 12:27 | CONS ---
Assessment/Plan Assessment/Plan Hospital Course (Demo Recall) IMPRESSION: 1. History of recently diagnosed endocarditis, assess for ongoing infection.- Bld cx remain NTD and TTE was without sig valvular findings this admit 2. Tachycardia, borderline consistent with sinus tachycardia-ongoing mild 3. Hypertension, labile may be related to pain, currently improved, off of antihypertensives recently today. 4. Deep venous thrombosis of the right extremity, likely secondary to PICC line that was in place.-ongoing pain 5. Anemia. 6. Psychiatric disorder. Recc: -Now on med-surg -serial ecg's -Continue abx's and f/u cx data closely -Continue eliquis and consider vascular surgery eval for thrombolysis/thrombectomy given persistent pain and swelling -Continue low dose BB with reasonable HR/BP overall Consultation Date/Type/Reason Admit Date/Time Aug 15, 2018 at 10:07 Initial Consult Date 08/17/18 Type of Consult Cardiology Reason for Consultation endocarditis Requesting Provider: JHOANA CAMPA NP Date/Time of Note DATE: 08/23/18 TIME: 12:25 Exam/Review of Systems Vital Signs Vitals Vital Signs Date Temp Pulse Resp B/P (MAP) Pulse Ox O2 O2 Flow FiO2 Time Delivery Rate 08/23/18 98.2 78 18 128/67 98 08:03 (87) 08/23/18 Room Air 02:40 Intake and Output 08/22/18 08/22/18 08/23/18 1515:00 23:00 07:00 IntakeIntake Total 350 ml 290 ml BalanceBalance 350 ml 290 ml Exam Exam Review of Systems: CONSTITUTIONAL: No fevers, chills. PULMONARY: No sob CARDIOVASCULAR: No chest pain/palpitations GASTROINTESTINAL: No nausea/vomiting. GENITOURINARY: No hematuria/dysuria. MUSCULOSKELETAL: pain in arm PSYCHIATRIC: The patient denies depression. NEUROLOGIC: No weakness Constitutional: alert Psych: no complaints Head: normocephalic Neck: supple, jvd (8 cm water) Respiratory: clear to auscultation Cardiovascular: regular rate and rhythm Gastrointestinal: soft, non-tender Musculoskeletal: muscle tone (normal) Extremities: edema (LUE) Neurological: other (No focal deficits) Labs Result Diagram: 08/23/18 1042 08/23/18 1042 Results 24hrs Laboratory Tests Test 08/23/18 04:24 08/23/18 10:02 08/23/18 10:42 White Blood Count 5.1 5.0 Red Blood Count 3.08 L 3.23 L Hemoglobin 8.7 L 9.0 L Hematocrit 28.0 L 29.8 L Mean Corpuscular Volume 90.9 92.3 Mean Corpuscular Hemoglobin 28.2 L 27.9 L Mean Corpuscular 31.1 L 30.2 L Hemoglobin Concent Red Cell Distribution Width 14.5 14.6 H Platelet Count 316 312 Mean Platelet Volume 9.8 9.5 Immature Granulocytes % 0.400 0.400 Neutrophils % 42.8 45.4 Lymphocytes % 45.3 42.2 Monocytes % 8.8 9.0 Eosinophils % 2.1 2.2 Basophils % 0.6 0.8 Nucleated Red Blood Cells % 0.0 0.0 Immature Granulocytes # 0.020 0.020 Neutrophils # 2.2 2.3 Lymphocytes # 2.3 2.1 Monocytes # 0.5 0.5 Eosinophils # 0.1 0.1 Basophils # 0.0 0.0 Nucleated Red Blood Cells # 0.0 0.0 Sodium Level 140 140 Potassium Level 4.0 4.3 Chloride Level 105 105 Carbon Dioxide Level 28 27 Anion Gap 7 8 Blood Urea Nitrogen 13 12 Creatinine 0.54 0.52 Est Glomerular Filtrat > 60 > 60 Rate mL/min Glucose Level 109 114 Calcium Level 8.8 8.7 Phosphorus Level 4.6 Magnesium Level 1.6 L Lab Scanned Report REFERENCE LAB Medications Medications Current Medications Morphine Sulfate (morphine) 2 mg Q4 PRN IV CRIES SCALE 5-7 Last administered on 08/23/18at 08:49; Admin Dose 2 MG; Start 08/15/18 at 12:00 IV Flush (NS 3 ml) 3 ml PER PROTOCOL IV Last administered on 08/22/18at 04:07; Admin Dose 3 ML; Start 08/15/18 at 14:00 Ondansetron HCl (Zofran Inj) 4 mg Q6H PRN IV NAUSEA/VOMITING; Start 08/15/18 at 14:00 Acetaminophen (Tylenol Tab) 650 mg Q6H PRN PO .PAIN 1-3 OR TEMP Last administered on 08/23/18at 08:48; Admin Dose 650 MG; Start 08/15/18 at 14:00 Acetaminophen/ Hydrocodone Bitart ([place] (5/325)) 1 tab Q6H PRN PO .MOD PAIN 4- 6; Start 08/15/18 at 14:00 Docusate Sodium (Colace) 100 mg Q12H PRN PO .CONSTIPATION; Start 08/15/18 at 14:00 Magnesium Hydroxide (Milk Of Mag) 30 ml DAILY PRN PO .CONSTIPATION; Start 08/15/18 at 14:00 Bisacodyl (Dulcolax Supp) 10 mg DAILY PRN [place] .CONSTIPATION; Start 08/15/18 at 14:00 Cefazolin Sodium/ Dextrose 50 ml @ 100 mls/hr Q8 IVPB Last administered on 08/23/18 06:38; Admin Dose 100 MLS/HR; Start 08/15/18 at 14:00 Alprazolam (Xanax) 1 mg BID PRN PO ANXIETY Last administered on 08/23/18at 08:48; Admin Dose 1 MG; Start 08/15/18 at 14:30 Hydromorphone HCl (Dilaudid) 1 mg Q4H PRN IV .SEVERE PAIN 7-10 Last administered on 08/23/18at 06:38; Admin Dose 1 MG; Start 08/16/18 at 12:00 Pantoprazole (Protonix Tab) 40 mg DAILY@06 PO Last administered on 08/23/18at 06:38; Admin Dose 40 MG; Start 08/18/18 at 06:00 Acetaminophen/ Hydrocodone Bitart ([place] (10/325)) 1 tab Q4H PRN PO MODERATE PAIN LEVEL 4-6 Last administered on 08/23/18at 09:50; Admin Dose 1 TAB; Start 08/18/18 at 11:00 Apixaban (Eliquis) 10 mg BID PO Last administered on 08/23/18at 08:49; Admin Dose 10 MG; Start 08/18/18 at 21:00; Stop 08/25/18 at 20:59 Apixaban (Eliquis) 5 mg BID PO ; Start 08/26/18 at 21:00 Metoprolol Tartrate (Lopressor) 25 mg BID PO Last administered on 08/23/18at 08:49; Admin Dose 25 MG; Start 08/19/18 at 21:00 Alteplase, Recombinant (Cathflo (Activase)) 2 mg MAY REPEAT X1 PRN CATHETER IF CATHETER REMAINS OCCULUDED Last administered on 08/23/18at 00:05; Admin Dose 2 MG; Start 08/22/18 at 20:00 Magnesium Sulfate 50 ml @ 25 mls/hr ONCE ONCE IVPB ; Start 08/23/18 at 10:30; Stop 08/23/18 at 12:29 KI PEACE Aug 23, 2018 12:27
--- NOTE | 2018-08-23 14:17 | CONS ---
Assessment/Plan Assessment/Plan Hospital Course (Demo Recall) Patient still has significant pain in her right upper extremity. She is alert in no distress and asking to increase her pain medication. Right upper extremity still swollen and warm to touch Microbiology: Blood cultures negative Antimicrobials: Ancef Physical examination: Obese well-developed middle-aged woman who is alert in no distress. Head atraumatic normocephalic neck is supple chest rise symmetrical breath sounds clear heart: S1-S2 abdomen soft bowel sounds present extremities w ith right upper extremity edema Assessment: 1. Right upper extremity DVT 2. TV endocarditis 3. Obesity 4. History of MSSA bacteremia 07/12/18 Plan: Remains stable, I am going to add doxycycline to the regimen given ongoing swelling and erythema of her right upper extremity, patient is completing antibiotics for SBE, last dose tomorrow DW pt Consultation Date/Type/Reason Admit Date/Time Aug 15, 2018 at 10:07 Initial Consult Date Type of Consult id Requesting Provider: JHOANA CAMPA NP Date/Time of Note DATE: 08/23/18 TIME: 14:14 Exam/Review of Systems Exam Vitals Vital Signs Date Temp Pulse Resp B/P (MAP) Pulse Ox O2 O2 Flow FiO2 Time Delivery Rate 08/23/18 98.2 78 18 128/67 98 08:03 (87) 08/23/18 Room Air 02:40 Intake and Output 08/22/18 08/22/18 08/23/18 1515:00 23:00 07:00 IntakeIntake Total 350 ml 290 ml BalanceBalance 350 ml 290 ml Results Result Diagram: 08/23/18 1042 08/23/18 1042 Results 24hrs Laboratory Tests Test 08/23/18 04:24 08/23/18 10:02 08/23/18 10:42 White Blood Count 5.1 5.0 Red Blood Count 3.08 L 3.23 L Hemoglobin 8.7 L 9.0 L Hematocrit 28.0 L 29.8 L Mean Corpuscular Volume 90.9 92.3 Mean Corpuscular Hemoglobin 28.2 L 27.9 L Mean Corpuscular 31.1 L 30.2 L Hemoglobin Concent Red Cell Distribution Width 14.5 14.6 H Platelet Count 316 312 Mean Platelet Volume 9.8 9.5 Immature Granulocytes % 0.400 0.400 Neutrophils % 42.8 45.4 Lymphocytes % 45.3 42.2 Monocytes % 8.8 9.0 Eosinophils % 2.1 2.2 Basophils % 0.6 0.8 Nucleated Red Blood Cells % 0.0 0.0 Immature Granulocytes # 0.020 0.020 Neutrophils # 2.2 2.3 Lymphocytes # 2.3 2.1 Monocytes # 0.5 0.5 Eosinophils # 0.1 0.1 Basophils # 0.0 0.0 Nucleated Red Blood Cells # 0.0 0.0 Sodium Level 140 140 Potassium Level 4.0 4.3 Chloride Level 105 105 Carbon Dioxide Level 28 27 Anion Gap 7 8 Blood Urea Nitrogen 13 12 Creatinine 0.54 0.52 Est Glomerular Filtrat > 60 > 60 Rate mL/min Glucose Level 109 114 Calcium Level 8.8 8.7 Phosphorus Level 4.6 Magnesium Level 1.6 L Lab Scanned Report REFERENCE LAB Medications Medication Current Medications Morphine Sulfate (morphine) 2 mg Q4 PRN IV CRIES SCALE 5-7 Last administered on 08/23/18at 13:10; Admin Dose 2 MG; Start 08/15/18 at 12:00 IV Flush (NS 3 ml) 3 ml PER PROTOCOL IV Last administered on 08/22/18at 04:07; Admin Dose 3 ML; Start 08/15/18 at 14:00 Ondansetron HCl (Zofran Inj) 4 mg Q6H PRN IV NAUSEA/VOMITING; Start 08/15/18 at 14:00 Acetaminophen (Tylenol Tab) 650 mg Q6H PRN PO .PAIN 1-3 OR TEMP Last administered on 08/23/18at 08:48; Admin Dose 650 MG; Start 08/15/18 at 14:00 Acetaminophen/ Hydrocodone Bitart ([place] (5/325)) 1 tab Q6H PRN PO .MOD PAIN 4- 6; Start 08/15/18 at 14:00 Docusate Sodium (Colace) 100 mg Q12H PRN PO .CONSTIPATION; Start 08/15/18 at 14:00 Magnesium Hydroxide (Milk Of Mag) 30 ml DAILY PRN PO .CONSTIPATION; Start 08/15/18 at 14:00 Bisacodyl (Dulcolax Supp) 10 mg DAILY PRN [place] .CONSTIPATION; Start 08/15/18 at 14:00 Cefazolin Sodium/ Dextrose 50 ml @ 100 mls/hr Q8 IVPB Last administered on 08/23/18 14:06; Admin Dose 100 MLS/HR; Start 08/15/18 at 14:00 Alprazolam (Xanax) 1 mg BID PRN PO ANXIETY Last administered on 08/23/18 08:48; Admin Dose 1 MG; Start 08/15/18 at 14:30 Hydromorphone HCl (Dilaudid) 1 mg Q4H PRN IV .SEVERE PAIN 7-10 Last administered on 08/23/18 12:31; Admin Dose 1 MG; Start 08/16/18 at 12:00 Pantoprazole (Protonix Tab) 40 mg DAILY@06 PO Last administered on 08/23/18 06:38; Admin Dose 40 MG; Start 08/18/18 at 06:00 Acetaminophen/ Hydrocodone Bitart ([place] (10/325)) 1 tab Q4H PRN PO MODERATE PAIN LEVEL 4-6 Last administered on 08/23/18 14:12; Admin Dose 1 TAB; Start 08/18/18 at 11:00 Apixaban (Eliquis) 10 mg BID PO Last administered on 08/23/18 08:49; Admin Dose 10 MG; Start 08/18/18 at 21:00; Stop 08/25/18 at 20:59 Apixaban (Eliquis) 5 mg BID PO ; Start 08/26/18 at 21:00 Metoprolol Tartrate (Lopressor) 25 mg BID PO Last administered on 08/23/18 08:49; Admin Dose 25 MG; Start 08/19/18 at 21:00 Alteplase, Recombinant (Cathflo (Activase)) 2 mg MAY REPEAT X1 PRN CATHETER IF CATHETER REMAINS OCCULUDED Last administered on 08/23/18 00:05; Admin Dose 2 MG; Start 08/22/18 at 20:00 BLANCA LR NP Aug 23, 2018 14:17
--- NOTE | 2018-08-23 14:27 | PN ---
Date/Time of Note Date/Time of Note DATE: 08/23/18 TIME: 14:24 Assessment/Plan VTE Prophylaxis Risk score (from Ns)>0 risk: 5 SCD applied (from Ns): Yes Pharmacological prophylaxis: heparin Lines/Catheters IV Catheter Type (from Nrsg): PICC Line Central line still needed: Yes Urinary Cath still in place: No Assessment/Plan Hospital Course 1. Extensive DVT of the right upper extremity. Discussed with vascular surgeon. Will stop Eliquis. Start on heparin drip for now. Tentative plan for venogram and thrombectomy August 25, 2018 Started on factor Xa inhibitors on 08/18/2018 - on HOLD for now Hematology following. Vascular surgeon consulted 2. Reported history of endocarditis. Continue Ancef as per ID recommendations. Cardiology following 3. Morbid obesity. BMI more than 42 kg/m. weight reduction was advised 4. Anxiety disorder. Continue PRN anxiolytics. 5. Normocytic anemia. Monitor H&H Disposition and plan. Eliquis stopped. Start on heparin drip again. Vascular surgeon consulted. Tentative plan for venogram and thrombectomy. We will follow-up. Discussed POC with Dr. Ramirez Result Diagram: 08/23/18 1042 08/23/18 1042 Results 24hrs Laboratory Tests Test 08/23/18 04:24 08/23/18 10:02 08/23/18 10:42 White Blood Count 5.1 5.0 Red Blood Count 3.08 L 3.23 L Hemoglobin 8.7 L 9.0 L Hematocrit 28.0 L 29.8 L Mean Corpuscular Volume 90.9 92.3 Mean Corpuscular Hemoglobin 28.2 L 27.9 L Mean Corpuscular 31.1 L 30.2 L Hemoglobin Concent Red Cell Distribution Width 14.5 14.6 H Platelet Count 316 312 Mean Platelet Volume 9.8 9.5 Immature Granulocytes % 0.400 0.400 Neutrophils % 42.8 45.4 Lymphocytes % 45.3 42.2 Monocytes % 8.8 9.0 Eosinophils % 2.1 2.2 Basophils % 0.6 0.8 Nucleated Red Blood Cells % 0.0 0.0 Immature Granulocytes # 0.020 0.020 Neutrophils # 2.2 2.3 Lymphocytes # 2.3 2.1 Monocytes # 0.5 0.5 Eosinophils # 0.1 0.1 Basophils # 0.0 0.0 Nucleated Red Blood Cells # 0.0 0.0 Sodium Level 140 140 Potassium Level 4.0 4.3 Chloride Level 105 105 Carbon Dioxide Level 28 27 Anion Gap 7 8 Blood Urea Nitrogen 13 12 Creatinine 0.54 0.52 Est Glomerular Filtrat > 60 > 60 Rate mL/min Glucose Level 109 114 Calcium Level 8.8 8.7 Phosphorus Level 4.6 Magnesium Level 1.6 L Lab Scanned Report REFERENCE LAB Subjective 24 Hr Interval Summary Free Text/Dictation Still reports having pain on right upper extremity that extends to right upper shoulder. Exam/Review of Systems Exam Vitals Vital Signs Date Temp Pulse Resp B/P (MAP) Pulse Ox O2 O2 Flow FiO2 Time Delivery Rate 08/23/18 98.2 78 18 128/67 98 08:03 (87) 08/23/18 Room Air 02:40 Intake and Output 08/22/18 08/22/18 08/23/18 1515:00 23:00 07:00 IntakeIntake Total 350 ml 290 ml BalanceBalance 350 ml 290 ml Constitutional: alert, oriented Psych: anxiety Head: normocephalic Respiratory: clear to auscultation, normal air movement Cardiovascular: other (Regular rate) Gastrointestinal: soft Extremities: edema (Right upper extremity) Neurological: [employer] II-XII intact, nl mental status, nl speech Results Results 24hrs Laboratory Tests Test 08/23/18 04:24 08/23/18 10:02 08/23/18 10:42 White Blood Count 5.1 5.0 Red Blood Count 3.08 L 3.23 L Hemoglobin 8.7 L 9.0 L Hematocrit 28.0 L 29.8 L Mean Corpuscular Volume 90.9 92.3 Mean Corpuscular Hemoglobin 28.2 L 27.9 L Mean Corpuscular 31.1 L 30.2 L Hemoglobin Concent Red Cell Distribution Width 14.5 14.6 H Platelet Count 316 312 Mean Platelet Volume 9.8 9.5 Immature Granulocytes % 0.400 0.400 Neutrophils % 42.8 45.4 Lymphocytes % 45.3 42.2 Monocytes % 8.8 9.0 Eosinophils % 2.1 2.2 Basophils % 0.6 0.8 Nucleated Red Blood Cells % 0.0 0.0 Immature Granulocytes # 0.020 0.020 Neutrophils # 2.2 2.3 Lymphocytes # 2.3 2.1 Monocytes # 0.5 0.5 Eosinophils # 0.1 0.1 Basophils # 0.0 0.0 Nucleated Red Blood Cells # 0.0 0.0 Sodium Level 140 140 Potassium Level 4.0 4.3 Chloride Level 105 105 Carbon Dioxide Level 28 27 Anion Gap 7 8 Blood Urea Nitrogen 13 12 Creatinine 0.54 0.52 Est Glomerular Filtrat > 60 > 60 Rate mL/min Glucose Level 109 114 Calcium Level 8.8 8.7 Phosphorus Level 4.6 Magnesium Level 1.6 L Lab Scanned Report REFERENCE LAB Medications Medication Current Medications Morphine Sulfate (morphine) 2 mg Q4 PRN IV CRIES SCALE 5-7 Last administered on 08/23/18at 13:10; Admin Dose 2 MG; Start 08/15/18 at 12:00 IV Flush (NS 3 ml) 3 ml PER PROTOCOL IV Last administered on 08/22/18at 04:07; Admin Dose 3 ML; Start 08/15/18 at 14:00 Ondansetron HCl (Zofran Inj) 4 mg Q6H PRN IV NAUSEA/VOMITING; Start 08/15/18 at 14:00 Acetaminophen (Tylenol Tab) 650 mg Q6H PRN PO .PAIN 1-3 OR TEMP Last administered on 08/23/18at 08:48; Admin Dose 650 MG; Start 08/15/18 at 14:00 Acetaminophen/ Hydrocodone Bitart ([place] (5/325)) 1 tab Q6H PRN PO .MOD PAIN 4- 6; Start 08/15/18 at 14:00 Docusate Sodium (Colace) 100 mg Q12H PRN PO .CONSTIPATION; Start 08/15/18 at 14:00 Magnesium Hydroxide (Milk Of Mag) 30 ml DAILY PRN PO .CONSTIPATION; Start 08/15/18 at 14:00 Bisacodyl (Dulcolax Supp) 10 mg DAILY PRN [place] .CONSTIPATION; Start 08/15/18 at 14:00 Cefazolin Sodium/ Dextrose 50 ml @ 100 mls/hr Q8 IVPB Last administered on 08/23/18at 14:06; Admin Dose 100 MLS/HR; Start 08/15/18 at 14:00; Stop 08/24/18 at 23:00 Alprazolam (Xanax) 1 mg BID PRN PO ANXIETY Last administered on 08/23/18at 08:48; Admin Dose 1 MG; Start 08/15/18 at 14:30 Hydromorphone HCl (Dilaudid) 1 mg Q4H PRN IV .SEVERE PAIN 7-10 Last administered on 08/23/18at 12:31; Admin Dose 1 MG; Start 08/16/18 at 12:00 Pantoprazole (Protonix Tab) 40 mg DAILY@06 PO Last administered on 08/23/18at 06:38; Admin Dose 40 MG; Start 08/18/18 at 06:00 Acetaminophen/ Hydrocodone Bitart ([place] (10/325)) 1 tab Q4H PRN PO MODERATE PAIN LEVEL 4-6 Last administered on 08/23/18at 14:12; Admin Dose 1 TAB; Start 08/18/18 at 11:00 Apixaban (Eliquis) 5 mg BID PO ; Start 08/26/18 at 21:00 Metoprolol Tartrate (Lopressor) 25 mg BID PO Last administered on 08/23/18at 08:49; Admin Dose 25 MG; Start 08/19/18 at 21:00 Alteplase, Recombinant (Cathflo (Activase)) 2 mg MAY REPEAT X1 PRN CATHETER IF CATHETER REMAINS OCCULUDED Last administered on 08/23/18at 00:05; Admin Dose 2 MG; Start 08/22/18 at 20:00 Doxycycline Hyclate (Vibramycin) 100 mg BID PO ; Start 08/23/18 at 14:30; Status UNV Miscellaneous Information (* Miscellaneous Pharmacy Order) DC previous hepa... ONCE ONCE XX ; Start 08/23/18 at 14:30; Stop 08/23/18 at 14:31; Status UNV Heparin Sodium (Porcine) (Heparin (1000 Units/ml)) 9,100 unit ONCE ONCE IV ; Start 08/23/18 at 14:30; Stop 08/23/18 at 14:31; Status UNV Heparin Sodium (Porcine) (Heparin (1000 Units/ml)) 9,100 unit PER PROTOCOL PRN IV aPTT<47; Start 08/23/18 at 14:30; Status UNV Heparin Sodium (Porcine) (Heparin (1000 Units/ml)) 4,500 unit PER PROTOCOL PRN IV aPTT<47-57; Start 08/23/18 at 14:30; Status UNV Heparin Sodium (Porcine) 250 ml @ 0 mls/hr PER PROTOCOL IV ; Start 08/23/18 at 14:30; Status UNV JOHN WILL NP Aug 23, 2018 14:27
[2018-08-23] MEDS ORDERED: HEPARIN 1000 UNITS/ML 10 ML INJ IV ONE (14:30)
[2018-08-23] MEDS ORDERED: HEPARIN 1000 UNITS/ML 10 ML INJ IV PRN ×2 (14:30)
[2018-08-23 15:27] VITALS: BP 124/63; PULSE 80; RESP 16
[2018-08-23] MEDS: DOXYCYCLINE 100 MG TAB PO SCH ×2 (15:53→20:23)
[2018-08-23] MEDS ORDERED: ALPRAZOLAM 1 MG TAB PO ONE (16:30)
[2018-08-23] MEDS ORDERED: SUMATRIPTAN 50 MG TAB PO ONE (16:30)
[2018-08-23 20:24] VITALS: BP 104/53; PULSE 96; RESP 17
[2018-08-23] MEDS ORDERED: ALTEPLASE (CATHFLO) 2 MG INJ CATHETER ONE (21:30)
[2018-08-24] MEDS: ALPRAZOLAM 1 MG TAB PO PRN ×3 (00:53→21:39)
[2018-08-24] MEDS: HYDROmorphONE 0.5 MG/0.5 ML SYG IV PRN ×6 (00:53→20:54)
[2018-08-24 02:59] VITALS: BP 122/58; PULSE 101; RESP 19
[2018-08-24] MEDS: PANTOPRAZOLE (EC) 40 MG TAB PO SCH (05:03)
[2018-08-24] MEDS: CEFAZOLIN 2 GM/50 ML (PMX) 50 ML IVPB SCH ×3 (05:16→21:39)
[2018-08-24] MEDS: ALTEPLASE (CATHFLO) 2 MG INJ CATHETER PRN ×2 (09:08→09:15)
[2018-08-24 09:15] VITALS: BP 170/82; PULSE 91; RESP 18
[2018-08-24] MEDS: METOPROLOL 25 MG TAB PO SCH ×2 (09:23→20:53)
[2018-08-24] MEDS: DOXYCYCLINE 100 MG TAB PO SCH ×2 (09:23→20:53)
[2018-08-24] MEDS: morphine 2 MG INJ IV PRN ×2 (10:17→12:48)
[2018-08-24] MEDS: HYDROCODONE/APAP (10/325) TAB PO PRN ×2 (10:18→14:41)
[2018-08-24] MEDS ORDERED: CLOTRIMAZOLE 1% 30 GM CR TOP PRN (11:30)
[2018-08-24] MEDS ORDERED: LIDOCAINE 1% (MPF) 5 ML VIAL SC ONE (13:00)
--- NOTE | 2018-08-24 13:22 | CONS ---
Assessment/Plan Assessment/Plan Hospital Course (Demo Recall) No events Microbiology: Blood cultures negative Antimicrobials: Ancef Doxycycline Physical examination: Obese well-developed middle-aged woman who is alert in no distress. Head atraumatic normocephalic neck is supple chest rise symmetrical breath sounds clear heart: S1-S2 abdomen soft bowel sounds present extremities with right upper extremity edema Assessment: 1. Right upper extremity DVT/cellulitis 2. TV endocarditis 3. Obesity 4. History of MSSA bacteremia 07/12/18 5. Vaginal yeast Plan: Remains stable, continue present care, add Diflucan, last dose of Ancef today Consultation Date/Type/Reason Admit Date/Time Aug 15, 2018 at 10:07 Initial Consult Date Type of Consult id Requesting Provider: JHOANA CAMPA NP Date/Time of Note DATE: 08/24/18 TIME: 13:21 Exam/Review of Systems Exam Vitals Vital Signs Date Temp Pulse Resp B/P (MAP) Pulse Ox O2 O2 Flow FiO2 Time Delivery Rate 08/24/18 98.1 91 18 170/82 99 09:15 (111) 08/23/18 Room Air 02:40 Intake and Output 08/23/18 08/23/18 08/24/18 1515:00 23:00 07:00 IntakeIntake Total 350 ml 250 ml 500 ml BalanceBalance 350 ml 250 ml 500 ml Results Result Diagram: 08/23/18 1639 08/23/18 1042 Results 24hrs Laboratory Tests Test 08/23/18 16:39 08/24/18 10:18 White Blood Count 5.9 Red Blood Count 3.33 L Hemoglobin 9.4 L Hematocrit 30.7 L Mean Corpuscular Volume 92.2 Mean Corpuscular Hemoglobin 28.2 L Mean Corpuscular Hemoglobin Concent 30.6 L Red Cell Distribution Width 14.6 H Platelet Count 334 Mean Platelet Volume 9.4 Immature Granulocytes % 0.200 Neutrophils % 41.4 Lymphocytes % 47.9 Monocytes % 7.4 Eosinophils % 2.4 Basophils % 0.7 Nucleated Red Blood Cells % 0.0 Immature Granulocytes # 0.010 Neutrophils # 2.5 Lymphocytes # 2.8 Monocytes # 0.4 Eosinophils # 0.1 Basophils # 0.0 Nucleated Red Blood Cells # 0.0 Prothrombin Time 14.8 Prothrombin Time Ratio 1.2 INR International Normalized Ratio 1.15 Activated Partial Thromboplast Time > 180.0 *H 28.3 Magnesium Level 1.5 L Medications Medication Current Medications Morphine Sulfate (morphine) 2 mg Q4 PRN IV CRIES SCALE 5-7 Last administered on 08/24/18at 12:48; Admin Dose 2 MG; Start 08/15/18 at 12:00 IV Flush (NS 3 ml) 3 ml PER PROTOCOL IV Last administered on 08/22/18 04:07; Admin Dose 3 ML; Start 08/15/18 at 14:00 Ondansetron HCl (Zofran Inj) 4 mg Q6H PRN IV NAUSEA/VOMITING; Start 08/15/18 at 14:00 Acetaminophen (Tylenol Tab) 650 mg Q6H PRN PO .PAIN 1-3 OR TEMP Last administered on 08/23/18 08:48; Admin Dose 650 MG; Start 08/15/18 at 14:00 Acetaminophen/ Hydrocodone Bitart ([place] (5/325)) 1 tab Q6H PRN PO .MOD PAIN 4- 6; Start 08/15/18 at 14:00 Docusate Sodium (Colace) 100 mg Q12H PRN PO .CONSTIPATION; Start 08/15/18 at 14:00 Magnesium Hydroxide (Milk Of Mag) 30 ml DAILY PRN PO .CONSTIPATION; Start 08/15/18 at 14:00 Bisacodyl (Dulcolax Supp) 10 mg DAILY PRN [place] .CONSTIPATION; Start 08/15/18 at 14:00 Cefazolin Sodium/ Dextrose 50 ml @ 100 mls/hr Q8 IVPB Last administered on 08/24/18 05:16; Admin Dose 100 MLS/HR; Start 08/15/18 at 14:00; Stop 08/24/18 at 23:00 Alprazolam (Xanax) 1 mg BID PRN PO ANXIETY Last administered on 08/24/18 09:23; Admin Dose 1 MG; Start 08/15/18 at 14:30 Hydromorphone HCl (Dilaudid) 1 mg Q4H PRN IV .SEVERE PAIN 7-10 Last admi nistered on 08/24/18 09:08; Admin Dose 1 MG; Start 08/16/18 at 12:00 Pantoprazole (Protonix Tab) 40 mg DAILY@06 PO Last administered on 7/16/19at 05:03; Admin Dose 40 MG; Start 08/18/18 at 06:00 Acetaminophen/ Hydrocodone Bitart ([place] (10/325)) 1 tab Q4H PRN PO MODERATE PAIN LEVEL 4-6 Last administered on 08/24/18at 10:18; Admin Dose 1 TAB; Start 08/18/18 at 11:00 Metoprolol Tartrate (Lopressor) 25 mg BID PO Last administered on 08/24/18at 09:23; Admin Dose 25 MG; Start 08/19/18 at 21:00 Alteplase, Recombinant (Cathflo (Activase)) 2 mg MAY REPEAT X1 PRN CATHETER IF CATHETER REMAINS OCCULUDED Last administered on 08/23/18at 00:05; Admin Dose 2 MG; Start 08/22/18 at 20:00 Doxycycline Hyclate (Vibramycin) 100 mg BID PO Last administered on 08/24/18at 09:23; Admin Dose 100 MG; Start 08/23/18 at 14:30 Heparin Sodium (Porcine) (Heparin (1000 Units/ml)) 9,100 unit PER PROTOCOL PRN IV aPTT<47; Start 08/23/18 at 14:30 Heparin Sodium (Porcine) (Heparin (1000 Units/ml)) 4,500 unit PER PROTOCOL PRN IV aPTT<47-57; Start 08/23/18 at 14:30 Heparin Sodium (Porcine) 250 ml @ 20 mls/hr PER PROTOCOL IV ; Start 08/23/18 at 14:30 Alteplase, Recombinant (Cathflo (Activase)) 2 mg MAY REPEAT X1 PRN CATHETER IF CATHETER REMAINS OCCULUDED Last administered on 08/24/18at 09:15; Admin Dose 2 MG; Start 08/24/18 at 07:00 Fluconazole (Diflucan) 100 mg DAILY PO ; Start 08/24/18 at 11:30 Clotrimazole (Lotrimin Cr) 1 applic BID PRN TOP PRURITUS; Start 08/24/18 at 11:30 BLANCA LR NP Aug 24, 2018 13:22
[2018-08-24] MEDS: FLUCONAZOLE 100 MG TAB PO SCH (13:40)
[2018-08-24 14:00] VITALS: BP 163/88; PULSE 101; RESP 18
--- NOTE | 2018-08-24 14:21 | PN ---
Date/Time of Note Date/Time of Note DATE: 08/24/18 TIME: 14:18 Assessment/Plan VTE Prophylaxis Risk score (from Nsg)>0 risk: 5 SCD applied (from Nsg): Yes Pharmacological prophylaxis: heparin Lines/Catheters IV Catheter Type (from Nrsg): PICC Line Central line still needed: Yes Urinary Cath still in place: No Assessment/Plan Hospital Course 1. Extensive DVT of the right upper extremity. Discussed with vascular surgeon. stopped Eliquis. continue on heparin drip for now. Tentative plan for venogram and thrombectomy August 25, 2018 Started on factor Xa inhibitors on 08/18/2018 - on HOLD for now Hematology following. Vascular surgeon consulted 2. Reported history of endocarditis. Continue Ancef as per ID recommendations. Cardiology following 3. Morbid obesity. BMI more than 42 kg/m. weight reduction was advised 4. Anxiety disorder. Continue PRN anxiolytics. 5. Normocytic anemia. Monitor H&H Disposition and plan. continue on heparin. vascular surgeon eval to follow. continue pain management. Further recommendations pending clinical course Discussed POC with Dr. Ramirez Result Diagram: 08/23/18 1639 08/23/18 1042 Results 24hrs Laboratory Tests Test 08/23/18 16:39 08/24/18 10:18 White Blood Count 5.9 Red Blood Count 3.33 L Hemoglobin 9.4 L Hematocrit 30.7 L Mean Corpuscular Volume 92.2 Mean Corpuscular Hemoglobin 28.2 L Mean Corpuscular Hemoglobin Concent 30.6 L Red Cell Distribution Width 14.6 H Platelet Count 334 Mean Platelet Volume 9.4 Immature Granulocytes % 0.200 Neutrophils % 41.4 Lymphocytes % 47.9 Monocytes % 7.4 Eosinophils % 2.4 Basophils % 0.7 Nucleated Red Blood Cells % 0.0 Immature Granulocytes # 0.010 Neutrophils # 2.5 Lymphocytes # 2.8 Monocytes # 0.4 Eosinophils # 0.1 Basophils # 0.0 Nucleated Red Blood Cells # 0.0 Prothrombin Time 14.8 Prothrombin Time Ratio 1.2 INR International Normalized Ratio 1.15 Activated Partial Thromboplast Time > 180.0 *H 28.3 Magnesium Level 1.5 L Subjective 24 Hr Interval Summary Free Text/Dictation still reports RUE pain Exam/Review of Systems Exam Vitals Vital Signs Date Temp Pulse Resp B/P (MAP) Pulse Ox O2 O2 Flow FiO2 Time Delivery Rate 08/24/18 98.1 91 18 170/82 99 09:15 (111) 08/23/18 Room Air 02:40 Intake and Output 08/23/18 08/23/18 08/24/18 1515:00 23:00 07:00 IntakeIntake Total 350 ml 250 ml 500 ml BalanceBalance 350 ml 250 ml 500 ml Exam Constitutional: alert, oriented Psych: anxiety Head: normocephalic Respiratory: clear to auscultation, normal air movement Cardiovascular: other (Regular rate) Gastrointestinal: soft Extremities: edema (Right upper extremity) Neurological: [employer]TER II-XII intact, nl mental status, nl speech Results Results 24hrs Laboratory Tests Test 08/23/18 16:39 08/24/18 10:18 White Blood Count 5.9 Red Blood Count 3.33 L Hemoglobin 9.4 L Hematocrit 30.7 L Mean Corpuscular Volume 92.2 Mean Corpuscular Hemoglobin 28.2 L Mean Corpuscular Hemoglobin Concent 30.6 L Red Cell Distribution Width 14.6 H Platelet Count 334 Mean Platelet Volume 9.4 Immature Granulocytes % 0.200 Neutrophils % 41.4 Lymphocytes % 47.9 Monocytes % 7.4 Eosinophils % 2.4 Basophils % 0.7 Nucleated Red Blood Cells % 0.0 Immature Granulocytes # 0.010 Neutrophils # 2.5 Lymphocytes # 2.8 Monocytes # 0.4 Eosinophils # 0.1 Basophils # 0.0 Nucleated Red Blood Cells # 0.0 Prothrombin Time 14.8 Prothrombin Time Ratio 1.2 INR International Normalized Ratio 1.15 Activated Partial Thromboplast Time > 180.0 *H 28.3 Magnesium Level 1.5 L Medications Medication Current Medications Morphine Sulfate (morphine) 2 mg Q4 PRN IV CRIES SCALE 5-7 Last administered on 08/24/18at 12:48; Admin Dose 2 MG; Start 08/15/18 at 12:00 IV Flush (NS 3 ml) 3 ml PER PROTOCOL IV Last administered on 08/22/18at 04:07; Admin Dose 3 ML; Start 08/15/18 at 14:00 Ondansetron HCl (Zofran Inj) 4 mg Q6H PRN IV NAUSEA/VOMITING; Start 08/15/18 at 14:00 Acetaminophen (Tylenol Tab) 650 mg Q6H PRN PO .PAIN 1-3 OR TEMP Last administered on 08/23/18 08:48; Admin Dose 650 MG; Start 08/15/18 at 14:00 Acetaminophen/ Hydrocodone Bitart ([place] (5/325)) 1 tab Q6H PRN PO .MOD PAIN 4- 6; Start 08/15/18 at 14:00 Docusate Sodium (Colace) 100 mg Q12H PRN PO .CONSTIPATION; Start 08/15/18 at 14:00 Magnesium Hydroxide (Milk Of Mag) 30 ml DAILY PRN PO .CONSTIPATION; Start 08/15/18 at 14:00 Bisacodyl (Dulcolax Supp) 10 mg DAILY PRN [place] .CONSTIPATION; Start 08/15/18 at 14:00 Cefazolin Sodium/ Dextrose 50 ml @ 100 mls/hr Q8 IVPB Last administered on 08/24/18 05:16; Admin Dose 100 MLS/HR; Start 08/15/18 at 14:00; Stop 08/24/18 at 23:00 Alprazolam (Xanax) 1 mg BID PRN PO ANXIETY Last administered on 08/24/18at 09:23; Admin Dose 1 MG; Start 08/15/18 at 14:30 Hydromorphone HCl (Dilaudid) 1 mg Q4H PRN IV .SEVERE PAIN 7-10 Last administered on 08/24/18 14:05; Admin Dose 1 MG; Start 08/16/18 at 12:00 Pantoprazole (Protonix Tab) 40 mg DAILY@06 PO Last administered on 08/24/18 05:03; Admin Dose 40 MG; Start 08/18/18 at 06:00 Acetaminophen/ Hydrocodone Bitart ([place] (10/325)) 1 tab Q4H PRN PO MODERATE PAIN LEVEL 4-6 Last administered on 08/24/18 10:18; Admin Dose 1 TAB; Start 08/18/18 at 11:00 Metoprolol Tartrate (Lopressor) 25 mg BID PO Last administered on 08/24/18 09:23; Admin Dose 25 MG; Start 08/19/18 at 21:00 Alteplase, Recombinant (Cathflo (Activase)) 2 mg MAY REPEAT X1 PRN CATHETER IF CATHETER REMAINS OCCULUDED Last administered on 08/23/18at 00:05; Admin Dose 2 MG; Start 08/22/18 at 20:00 Doxycycline Hyclate (Vibramycin) 100 mg BID PO Last administered on 08/24/18at 09:23; Admin Dose 100 MG; Start 08/23/18 at 14:30 Heparin Sodium (Porcine) (Heparin (1000 Units/ml)) 9,100 unit PER PROTOCOL PRN IV aPTT<47; Start 08/23/18 at 14:30 Heparin Sodium (Porcine) (Heparin (1000 Units/ml)) 4,500 unit PER PROTOCOL PRN IV aPTT<47-57; Start 08/23/18 at 14:30 Heparin Sodium (Porcine) 250 ml @ 20 mls/hr PER PROTOCOL IV ; Start 08/23/18 at 14:30 Alteplase, Recombinant (Cathflo (Activase)) 2 mg MAY REPEAT X1 PRN CATHETER IF CATHETER REMAINS OCCULUDED Last administered on 08/24/18at 09:15; Admin Dose 2 MG; Start 08/24/18 at 07:00 Fluconazole (Diflucan) 100 mg DAILY PO Last administered on 08/24/18at 13:40; Ad min Dose 100 MG; Start 08/24/18 at 11:30 Clotrimazole (Lotrimin Cr) 1 applic BID PRN TOP PRURITUS; Start 08/24/18 at 11:30 JOHN WILL NP Aug 24, 2018 14:21
--- NOTE | 2018-08-24 14:39 | CONS ---
Consult Date/Type/Reason Admit Date/Time Aug 15, 2018 at 10:07 Initial Consult Date Requesting Provider: JHOANA CAMPA NP Date/Time of Note DATE: 08/24/18 TIME: 14:35 Subjective Pt with recurrent pains - now her PICC is not working well - she has not been re-boluses with heparin yet - will try to facilitate now. ROS: No fever, no chills, no nausea, no vomiting, no diarrhea/constipation - chronic pain Objective Vitals Vital Signs Date Temp Pulse Resp B/P (MAP) Pulse Ox O2 O2 Flow FiO2 Time Delivery Rate 08/24/18 98.1 91 18 170/82 99 09:15 (111) 08/23/18 Room Air 02:40 Intake and Output 08/23/18 08/23/18 08/24/18 1515:00 23:00 07:00 IntakeIntake Total 350 ml 250 ml 500 ml BalanceBalance 350 ml 250 ml 500 ml Exam General: WN/WD/NAD, AOx 3 HEENT: Unicetric/atraumatic/EOMI (follows commands) NECK: JVD elevated, no thyromegaly Lymph: no lymphadenopathy HEART: regular with no S3, II/ systolic murmur at apex, PMI L LUNGS: Coarse sounds ABD: soft, NT, ND, +BS : Intact Neuro: non focal SKIN: chronic changes EXT: trace edema Results/Medications Result Diagram: 08/23/18 1639 08/23/18 1042 Results 24 hrs Laboratory Tests Test 08/23/18 16:39 08/24/18 10:18 White Blood Count 5.9 Red Blood Count 3.33 L Hemoglobin 9.4 L Hematocrit 30.7 L Mean Corpuscular Volume 92.2 Mean Corpuscular Hemoglobin 28.2 L Mean Corpuscular Hemoglobin Concent 30.6 L Red Cell Distribution Width 14.6 H Platelet Count 334 Mean Platelet Volume 9.4 Immature Granulocytes % 0.200 Neutrophils % 41.4 Lymphocytes % 47.9 Monocytes % 7.4 Eosinophils % 2.4 Basophils % 0.7 Nucleated Red Blood Cells % 0.0 Immature Granulocytes # 0.010 Neutrophils # 2.5 Lymphocytes # 2.8 Monocytes # 0.4 Eosinophils # 0.1 Basophils # 0.0 Nucleated Red Blood Cells # 0.0 Prothrombin Time 14.8 Prothrombin Time Ratio 1.2 INR International Normalized Ratio 1.15 Activated Partial Thromboplast Time > 180.0 *H 28.3 Magnesium Level 1.5 L Home Meds Reported Medications Oxycodone Hcl* (IR) (Oxycodone Hcl*) 5 Mg Capsule, 10 MG PO TID PRN for PAIN, CAP 08/15/18 Alprazolam* (Xanax*) 1 Mg Tab, 1 MG PO BID PRN for ANXIETY, TAB 08/15/18 Medications Current Medications Morphine Sulfate (morphine) 2 mg Q4 PRN IV CRIES SCALE 5-7 Last administered on 08/24/18at 12:48; Admin Dose 2 MG; Start 08/15/18 at 12:00 IV Flush (NS 3 ml) 3 ml PER PROTOCOL IV Last administered on 08/22/18at 04:07; Admin Dose 3 ML; Start 08/15/18 at 14:00 Ondansetron HCl (Zofran Inj) 4 mg Q6H PRN IV NAUSEA/VOMITING; Start 08/15/18 at 14:00 Acetaminophen (Tylenol Tab) 650 mg Q6H PRN PO .PAIN 1-3 OR TEMP Last administered on 08/23/18at 08:48; Admin Dose 650 MG; Start 08/15/18 at 14:00 Acetaminophen/ Hydrocodone Bitart ([place] (5/325)) 1 tab Q6H PRN PO .MOD PAIN 4- 6; Start 08/15/18 at 14:00 Docusate Sodium (Colace) 100 mg Q12H PRN PO .CONSTIPATION; Start 08/15/18 at 14:00 Magnesium Hydroxide (Milk Of Mag) 30 ml DAILY PRN PO .CONSTIPATION; Start 08/15/18 at 14:00 Bisacodyl (Dulcolax Supp) 10 mg DAILY PRN [place] .CONSTIPATION; Start 08/15/18 at 14:00 Cefazolin Sodium/ Dextrose 50 ml @ 100 mls/hr Q8 IVPB Last administered on 08/24/18at 05:16; Admin Dose 100 MLS/HR; Start 08/15/18 at 14:00; Stop 08/24/18 at 23:00 Alprazolam (Xanax) 1 mg BID PRN PO ANXIETY Last administered on 08/24/18at 09:23; Admin Dose 1 MG; Start 08/15/18 at 14:30 Hydromorphone HCl (Dilaudid) 1 mg Q4H PRN IV .SEVERE PAIN 7-10 Last administered on 08/24/18 14:05; Admin Dose 1 MG; Start 08/16/18 at 12:00 Pantoprazole (Protonix Tab) 40 mg DAILY@06 PO Last administered on 08/24/18 05:03; Admin Dose 40 MG; Start 08/18/18 at 06:00 Acetaminophen/ Hydrocodone Bitart ([place] (10/325)) 1 tab Q4H PRN PO MODERATE PAIN LEVEL 4-6 Last administered on 08/24/18 10:18; Admin Dose 1 TAB; Start 08/18/18 at 11:00 Metoprolol Tartrate (Lopressor) 25 mg BID PO Last administered on 08/24/18 09:23; Admin Dose 25 MG; Start 08/19/18 at 21:00 Alteplase, Recombinant (Cathflo (Activase)) 2 mg MAY REPEAT X1 PRN CATHETER IF CATHETER REMAINS OCCULUDED Last administered on 08/23/18at 00:05; Admin Dose 2 MG; Start 08/22/18 at 20:00 Doxycycline Hyclate (Vibramycin) 100 mg BID PO Last administered on 08/24/18 09:23; Admin Dose 100 MG; Start 08/23/18 at 14:30 Heparin Sodium (Porcine) (Heparin (1000 Units/ml)) 9,100 unit PER PROTOCOL PRN IV aPTT<47; Start 08/23/18 at 14:30 Heparin Sodium (Porcine) (Heparin (1000 Units/ml)) 4,500 unit PER PROTOCOL PRN IV aPTT<47-57; Start 08/23/18 at 14:30 Heparin Sodium (Porcine) 250 ml @ 20 mls/hr PER PROTOCOL IV ; Start 08/23/18 at 14:30 Alteplase, Recombinant (Cathflo (Activase)) 2 mg MAY REPEAT X1 PRN CATHETER IF CATHETER REMAINS OCCULUDED Last administered on 08/24/18at 09:15; Admin Dose 2 MG; Start 08/24/18 at 07:00 Fluconazole (Diflucan) 100 mg DAILY PO Last administered on 08/24/18at 13:40; Admin Dose 100 MG; Start 08/24/18 at 11:30 Clotrimazole (Lotrimin Cr) 1 applic BID PRN TOP PRURITUS; Start 08/24/18 at 11:30 Assessment/Plan Hospital Course (Demo Recall) 1. History of recently diagnosed endocarditis, assess for ongoing infection - pt had TTE done - no clear vegetaion noted - con't anti-Bx. 2. Tachycardia, borderline consistent with sinus tachycardia. HR better now. Improved HR now. 3. Hypertension, labile may be related to pain, currently improved, off of antihypertensives recently today. Con't to follow - better overall. 4. Deep venous thrombosis of the right extremity, likely secondary to PICC line that was in place. On Rx now. Now with PICC malfxn - advise replacement. 5. Anemia- H/H stable - no bleeding now, Will follow clinically. 6. Psychiatric disorder- defer to PMD. IVA MURRAY MD Aug 24, 2018 14:39
--- NOTE | 2018-08-24 15:25 | CONS ---
Consultation Date/Type/Reason Admit Date/Time Aug 15, 2018 at 10:07 Date/Time of Note DATE: 08/24/18 TIME: 15:23 Hx of Present Illness Chart reviewed patient examined... will dc morphine and norco,, change to percocet and dilaudid 2mg q3 prn... full note to follow Past Medical History Home Meds Reported Medications Oxycodone Hcl* (IR) (Oxycodone Hcl*) 5 Mg Capsule, 10 MG PO TID PRN for PAIN, CAP 08/15/18 Alprazolam* (Xanax*) 1 Mg Tab, 1 MG PO BID PRN for ANXIETY, TAB 08/15/18 Medications Current Medications Morphine Sulfate (morphine) 2 mg Q4 PRN IV CRIES SCALE 5-7 Last administered on 08/24/18at 12:48; Admin Dose 2 MG; Start 08/15/18 at 12:00 IV Flush (NS 3 ml) 3 ml PER PROTOCOL IV Last administered on 08/22/18at 04:07; Admin Dose 3 ML; Start 08/15/18 at 14:00 Ondansetron HCl (Zofran Inj) 4 mg Q6H PRN IV NAUSEA/VOMITING; Start 08/15/18 at 14:00 Acetaminophen (Tylenol Tab) 650 mg Q6H PRN PO .PAIN 1-3 OR TEMP Last a dministered on 08/23/18at 08:48; Admin Dose 650 MG; Start 08/15/18 at 14:00 Acetaminophen/ Hydrocodone Bitart ([place] (5/325)) 1 tab Q6H PRN PO .MOD PAIN 4- 6; Start 08/15/18 at 14:00 Docusate Sodium (Colace) 100 mg Q12H PRN PO .CONSTIPATION; Start 08/15/18 at 14:00 Magnesium Hydroxide (Milk Of Mag) 30 ml DAILY PRN PO .CONSTIPATION; Start 08/15/18 at 14:00 Bisacodyl (Dulcolax Supp) 10 mg DAILY PRN [place] .CONSTIPATION; Start 08/15/18 at 14:00 Cefazolin Sodium/ Dextrose 50 ml @ 100 mls/hr Q8 IVPB Last administered on 08/24/18at 05:16; Admin Dose 100 MLS/HR; Start 08/15/18 at 14:00; Stop 08/24/18 at 23:00 Alprazolam (Xanax) 1 mg BID PRN PO ANXIETY Last administered on 08/24/18 09:23; Admin Dose 1 MG; Start 08/15/18 at 14:30 Hydromorphone HCl (Dilaudid) 1 mg Q4H PRN IV .SEVERE PAIN 7-10 Last admini stered on 08/24/18 14:05; Admin Dose 1 MG; Start 08/16/18 at 12:00 Pantoprazole (Protonix Tab) 40 mg DAILY@06 PO Last administered on 08/24/18 05:03; Admin Dose 40 MG; Start 08/18/18 at 06:00 Acetaminophen/ Hydrocodone Bitart ([place] (10/325)) 1 tab Q4H PRN PO MODERATE PAIN LEVEL 4-6 Last administered on 08/24/18 14:41; Admin Dose 1 TAB; Start 08/18/18 at 11:00 Metoprolol Tartrate (Lopressor) 25 mg BID PO Last administered on 08/24/18 09:23; Admin Dose 25 MG; Start 08/19/18 at 21:00 Alteplase, Recombinant (Cathflo (Activase)) 2 mg MAY REPEAT X1 PRN CATHETER IF CATHETER REMAINS OCCULUDED Last administered on 08/23/18 00:05; Admin Dose 2 MG; Start 08/22/18 at 20:00 Doxycycline Hyclate (Vibramycin) 100 mg BID PO Last administered on 08/24/18 09:23; Admin Dose 100 MG; Start 08/23/18 at 14:30 Heparin Sodium (Porcine) (Heparin (1000 Units/ml)) 9,100 unit PER PROTOCOL PRN IV aPTT<47; Start 08/23/18 at 14:30 Heparin Sodium (Porcine) (Heparin (1000 Units/ml)) 4,500 unit PER PROTOCOL PRN IV aPTT<47-57; Start 08/23/18 at 14:30 Heparin Sodium (Porcine) 250 ml @ 20 mls/hr PER PROTOCOL IV ; Start 08/23/18 at 14:30 Alteplase, Recombinant (Cathflo (Activase)) 2 mg MAY REPEAT X1 PRN CATHETER IF CATHETER REMAINS OCCULUDED Last administered on 08/24/18at 09:15; Admin Dose 2 MG; Start 08/24/18 at 07:00 Fluconazole (Diflucan) 100 mg DAILY PO Last administered on 08/24/18at 13:40; Admin Dose 100 MG; Start 08/24/18 at 11:30 Clotrimazole (Lotrimin Cr) 1 applic BID PRN TOP PRURITUS; Start 08/24/18 at 11:30 Allergies: Coded Allergies: No Known Allergy (Unverified , 08/15/18) Past Surgical History Past Surgical Hx: no surgical history Social History Alcohol Use: none Smoking Status: Former smoker Drug Use: none Exam/Review of Systems Exam Vitals Vital Signs Date Temp Pulse Resp B/P (MAP) Pulse Ox O2 O2 Flow FiO2 Time Delivery Rate 08/24/18 98.1 91 18 170/82 99 09:15 (111) 08/23/18 Room Air 02:40 Intake and Output 08/23/18 08/23/18 08/24/18 1515:00 23:00 07:00 IntakeIntake Total 350 ml 250 ml 500 ml BalanceBalance 350 ml 250 ml 500 ml Results Result Diagram: 08/23/18 1639 08/23/18 1042 Results 24hrs Laboratory Tests Test 08/23/18 16:39 08/24/18 10:18 White Blood Count 5.9 Red Blood Count 3.33 L Hemoglobin 9.4 L Hematocrit 30.7 L Mean Corpuscular Volume 92.2 Mean Corpuscular Hemoglobin 28.2 L Mean Corpuscular Hemoglobin Concent 30.6 L Red Cell Distribution Width 14.6 H Platelet Count 334 Mean Platelet Volume 9.4 Immature Granulocytes % 0.200 Neutrophils % 41.4 Lymphocytes % 47.9 Monocytes % 7.4 Eosinophils % 2.4 Basophils % 0.7 Nucleated Red Blood Cells % 0.0 Immature Granulocytes # 0.010 Neutrophils # 2.5 Lymphocytes # 2.8 Monocytes # 0.4 Eosinophils # 0.1 Basophils # 0.0 Nucleated Red Blood Cells # 0.0 Prothrombin Time 14.8 Prothrombin Time Ratio 1.2 INR International Normalized Ratio 1.15 Activated Partial Thromboplast Time > 180.0 *H 28.3 Magnesium Level 1.5 L Medications Medication Current Medications Morphine Sulfate (morphine) 2 mg Q4 PRN IV CRIES SCALE 5-7 Last administered on 08/24/18at 12:48; Admin Dose 2 MG; Start 08/15/18 at 12:00 IV Flush (NS 3 ml) 3 ml PER PROTOCOL IV Last administered on 08/22/18at 04:07; Admin Dose 3 ML; Start 08/15/18 at 14:00 Ondansetron HCl (Zofran Inj) 4 mg Q6H PRN IV NAUSEA/VOMITING; Start 08/15/18 at 14:00 Acetaminophen (Tylenol Tab) 650 mg Q6H PRN PO .PAIN 1-3 OR TEMP Last administered on 08/23/18at 08:48; Admin Dose 650 MG; Start 08/15/18 at 14:00 Acetaminophen/ Hydrocodone Bitart ([place] (5/325)) 1 tab Q6H PRN PO .MOD PAIN 4- 6; Start 08/15/18 at 14:00 Docusate Sodium (Colace) 100 mg Q12H PRN PO .CONSTIPATION; Start 08/15/18 at 14:00 Magnesium Hydroxide (Milk Of Mag) 30 ml DAILY PRN PO .CONSTIPATION; Start 08/15/18 at 14:00 Bisacodyl (Dulcolax Supp) 10 mg DAILY PRN [place] .CONSTIPATION; Start 08/15/18 at 14 :00 Cefazolin Sodium/ Dextrose 50 ml @ 100 mls/hr Q8 IVPB Last administered on 08/24/18at 05:16; Admin Dose 100 MLS/HR; Start 08/15/18 at 14:00; Stop 08/24/18 at 23:00 Alprazolam (Xanax) 1 mg BID PRN PO ANXIETY Last administered on 08/24/18at 09:23; Admin Dose 1 MG; Start 08/15/18 at 14:30 Hydromorphone HCl (Dilaudid) 1 mg Q4H PRN IV .SEVERE PAIN 7-10 Last administered on 08/24/18at 14:05; Admin Dose 1 MG; Start 08/16/18 at 12:00 Pantoprazole (Protonix Tab) 40 mg DAILY@06 PO Last administered on 08/24/18at 05:03; Admin Dose 40 MG; Start 08/18/18 at 06:00 Acetaminophen/ Hydrocodone Bitart ([place] (10/325)) 1 tab Q4H PRN PO MODERATE PAIN LEVEL 4-6 Last administered on 08/24/18at 14:41; Admin Dose 1 TAB; Start 08/18/18 at 11:00 Metoprolol Tartrate (Lopressor) 25 mg BID PO Last administered on 08/24/18at 09:23; Admin Dose 25 MG; Start 08/19/18 at 21:00 Alteplase, Recombinant (Cathflo (Activase)) 2 mg MAY REPEAT X1 PRN CATHETER IF CATHETER REMAINS OCCULUDED Last administered on 08/23/18at 00:05; Admin Dose 2 MG; Start 08/22/18 at 20:00 Doxycycline Hyclate (Vibramycin) 100 mg BID PO Last administered on 08/24/18at 09:23; Admin Dose 100 MG; Start 08/23/18 at 14:30 Heparin Sodium (Porcine) (Heparin (1000 Units/ml)) 9,100 unit PER PROTOCOL PRN IV aPTT<47; Start 08/23/18 at 14:30 Heparin Sodium (Porcine) (Heparin (1000 Units/ml)) 4,500 unit PER PROTOCOL PRN IV aPTT<47-57; Start 08/23/18 at 14:30 Heparin Sodium (Porcine) 250 ml @ 20 mls/hr PER PROTOCOL IV ; Start 08/23/18 at 14:30 Alteplase, Recombinant (Cathflo (Activase)) 2 mg MAY REPEAT X1 PRN CATHETER IF CATHETER REMAINS OCCULUDED Last administered on 08/24/18at 09:15; Admin Dose 2 MG; Start 08/24/18 at 07:00 Fluconazole (Diflucan) 100 mg DAILY PO Last administered on 08/24/18at 13:40; Admin Dose 100 MG; Start 08/24/18 at 11:30 Clotrimazole (Lotrimin Cr) 1 applic BID PRN TOP PRURITUS; Start 08/24/18 at 11:30 JENNY REZA Aug 24, 2018 15:25
[2018-08-24] MEDS: HEPARIN 25000 UNITS/250 ML 250 ML IV SCH (17:39)
[2018-08-24 20:35] VITALS: BP 162/80; PULSE 100; RESP 19
[2018-08-24 20:50] VITALS: BP 149/66; PULSE 102; RESP 18
[2018-08-24] MEDS: OXYCODONE/ACETAMINOPHEN (5/325) TAB PO PRN (22:58)
[2018-08-25] MEDS: HYDROmorphONE 0.5 MG/0.5 ML SYG IV PRN ×2 (00:28→07:39)
[2018-08-25 02:52] VITALS: BP 108/53; PULSE 100; RESP 17
[2018-08-25] MEDS: PANTOPRAZOLE (EC) 40 MG TAB PO SCH (05:22)
[2018-08-25] MEDS: HEPARIN 25000 UNITS/250 ML 250 ML IV SCH ×2 (06:03→20:35)
[2018-08-25 07:52] VITALS: BP 144/84; PULSE 94; RESP 20
[2018-08-25] MEDS: DOXYCYCLINE 100 MG TAB PO SCH ×2 (08:34→20:20)
[2018-08-25] MEDS: ALPRAZOLAM 1 MG TAB PO PRN ×2 (08:34→20:52)
[2018-08-25] MEDS: METOPROLOL 25 MG TAB PO SCH ×2 (08:35→20:20)
[2018-08-25] MEDS: FLUCONAZOLE 100 MG TAB PO SCH (08:35)
[2018-08-25] MEDS: OXYCODONE/ACETAMINOPHEN (5/325) TAB PO PRN ×3 (09:39→22:21)
--- NOTE | 2018-08-25 11:02 | PN ---
Date/Time of Note Date/Time of Note DATE: 08/25/18 TIME: 11:00 Assessment/Plan VTE Prophylaxis Risk score (from Nsg)>0 risk: 6 SCD applied (from Nsg): Yes Pharmacological prophylaxis: heparin Lines/Catheters IV Catheter Type (from Nrsg): PICC Line Central line still needed: Yes Urinary Cath still in place: No Assessment/Plan Hospital Course 1. Extensive DVT of the right upper extremity. Discussed with vascular surgeon. stopped Eliquis. on heparin. plan for venogram and and possible thrombolysis/thrombectomy August 25, 2018 Started on factor Xa inhibitors on 08/18/2018 - on HOLD for now Hematology following. Vascular surgeon consulted 2. Reported history of endocarditis. Continue Ancef as per ID recommendations. Cardiology following 3. Morbid obesity. BMI more than 42 kg/m. weight reduction was advised 4. Anxiety disorder. Continue PRN anxiolytics. 5. Normocytic anemia. Monitor H&H Disposition and plan. plan for venogram today. f/u surgeon recommendations. continue pain management. abx regimen per ID. Discussed POC with Dr. Ramirez Result Diagram: 08/23/18 1639 08/23/18 1042 Results 24hrs Laboratory Tests Test 08/25/18 00:34 08/25/18 09:16 Activated Partial Thromboplast Time 76.8 *H 71.7 *H Subjective 24 Hr Interval Summary Free Text/Dictation patient seen. family at bedside. good pain control at present. no s/s/ of distress Exam/Review of Systems Exam Vitals Vital Signs Date Temp Pulse Resp B/P (MAP) Pulse Ox O2 O2 Flow FiO2 Time Delivery Rate 08/25/18 97.5 94 20 144/84 100 Room Air 07:52 (104) Intake and Output 08/24/18 08/24/18 08/25/18 1515:00 23:00 07:00 IntakeIntake Total 320 ml 250 ml BalanceBalance 320 ml 250 ml Exam Constitutional: alert, oriented Psych: anxiety Head: normocephalic Respiratory: clear to auscultation, normal air movement Cardiovascular: other (Regular rate) Gastrointestinal: soft Extremities: edema (Right upper extremity) Neurological: LAP POLISHER II-XII intact, nl mental status, nl speech Results Results 24hrs Laboratory Tests Test 08/25/18 00:34 08/25/18 09:16 Activated Partial Thromboplast Time 76.8 *H 71.7 *H Medications Medication Current Medications IV Flush (NS 3 ml) 3 ml PER PROTOCOL IV Last administered on 08/22/18 04:07; Admin Dose 3 ML; Start 08/15/18 at 14:00 Ondansetron HCl (Zofran Inj) 4 mg Q6H PRN IV NAUSEA/VOMITING; Start 08/15/18 at 14:00 Acetaminophen (Tylenol Tab) 650 mg Q6H PRN PO .PAIN 1-3 OR TEMP Last administered on 08/23/18at 08:48; Admin Dose 650 MG; Start 08/15/18 at 14:00 Docusate Sodium (Colace) 100 mg Q12H PRN PO .CONSTIPATION; Start 08/15/18 at 14:00 Magnesium Hydroxide (Milk Of Mag) 30 ml DAILY PRN PO .CONSTIPATION; Start 08/15/18 at 14:00 Bisacodyl (Dulcolax Supp) 10 mg DAILY PRN [place] .CONSTIPATION; Start 08/15/18 at 14:00 Alprazolam (Xanax) 1 mg BID PRN PO ANXIETY Last administered on 08/25/18at 08:34; Admin Dose 1 MG; Start 08/15/18 at 14:30 Pantoprazole (Protonix Tab) 40 mg DAILY@06 PO Last administered on 08/24/18at 05:03; Admin Dose 40 MG; Start 08/18/18 at 06:00 Metoprolol Tartrate (Lopressor) 25 mg BID PO Last administered on 08/25/18at 08:35; Admin Dose 25 MG; Start 08/19/18 at 21:00 Alteplase, Recombinant (Cathflo (Activase)) 2 mg MAY REPEAT X1 PRN CATHETER IF CATHETER REMAINS OCCULUDED Last administered on 08/23/18at 00:05; Admin Dose 2 MG; Start 08/22/18 at 20:00 Doxycycline Hyclate (Vibramycin) 100 mg BID PO Last administered on 08/25/18 08:34; Admin Dose 100 MG; Start 08/23/18 at 14:30 Heparin Sodium (Porcine) (Heparin (1000 Units/ml)) 9,100 unit PER PROTOCOL PRN IV aPTT<47 Last administered on 08/24/18at 17:36; Admin Dose 9,100 UNIT; Start 08/23/18 at 14:30 Heparin Sodium (Porcine) (Heparin (1000 Units/ml)) 4,500 unit PER PROTOCOL PRN IV aPTT<47-57; Start 08/23/18 at 14:30 Heparin Sodium (Porcine) 250 ml @ 20 mls/hr PER PROTOCOL IV Last administered on 08/25/18at 06:03; Admin Dose 20 MLS/HR; Start 08/23/18 at 14:30 Alteplase, Recombinant (Cathflo (Activase)) 2 mg MAY REPEAT X1 PRN CATHETER IF CATHETER REMAINS OCCULUDED Last administered on 08/24/18at 09:15; Admin Dose 2 MG; Start 08/24/18 at 07:00 Fluconazole (Diflucan) 100 mg DAILY PO Last administered on 08/24/18at 13:40; Admin Dose 100 MG; Start 08/24/18 at 11:30 Clotrimazole (Lotrimin Cr) 1 applic BID PRN TOP PRURITUS; Start 08/24/18 at 11:30 Oxycodone/ Acetaminophen (Percocet (5/ 325)) 2 tab Q6 PRN PO PAIN LEVEL 1-5 Last administered on 08/25/18at 09:39; Admin Dose 2 TAB; Start 08/24/18 at 16:30 Hydromorphone HCl (Dilaudid) 2 mg Q3H PRN IV .SEVERE PAIN 7-10; Start 08/25/18 at 10:30 JOHN WILL NP Aug 25, 2018 11:02
[2018-08-25] MEDS ORDERED: HEPARIN 1000 UNITS/NS (A-LINE) 1,000 ML ONE (11:26)
[2018-08-25] MEDS ORDERED: MIDAZOLAM 1 MG/ML 2 ML INJ ONE (11:26)
[2018-08-25] MEDS ORDERED: LIDOCAINE 1% (MDV) 20 ML INJ ONE (11:26)
[2018-08-25] MEDS ORDERED: IODIXANOL LOCM 100 ML BTL ONE (11:26)
[2018-08-25] MEDS ORDERED: FENTAnyl 50 MCG/ML VIAL ONE ×2 (11:26→12:50)
[2018-08-25] MEDS ORDERED: ALTEPLASE (CATHFLO) 2 MG INJ CATHETER SCH (12:00)
[2018-08-25] MEDS ORDERED: ONDANSETRON 4 MG INJ ONE (12:34)
--- NOTE | 2018-08-25 13:01 | SIPON ---
Date/Time of Note Date/Time of Note DATE: 08/25/18 TIME: 12:59 Operative Report Preoperative Diagnosis R arm axillo-subclavian DVT Postoperative Diagnosis same Operation/Procedure Performed R arm venogram, percutaneous mechanical and chemical thrombectomy of the axillary and subclavian veins (Angiojet and tPA) Surgeon see signature line reproductive healthcare assistant none Anesthesia: moderate sedation Estimated blood loss: minimal Transfusion Required none Specimen none Grafts/Implants none Complications none KI KNOWLES MD Aug 25, 2018 13:01
--- NOTE | 2018-08-25 13:04 | CONS ---
DATE OF ADMISSION: 08/15/2018 DATE OF CONSULTATION: 08/25/2018 REFERRING PHYSICIAN: Dr. Chris Angel and John Wilcox NP. REASON FOR CONSULTATION: Right upper extremity DVT. HISTORY OF PRESENT ILLNESS: This is a 32-year-old woman. She has been treated for endocarditis. Hailey lima had a right arm PICC line and she has had some problems with extravasation. The PICC line was austyn jamie about 2 weeks ago and placed in the left arm and then shortly after she started getting very nimesh re swelling and pain in the right arm. She was found to have extensive right upper extremity DVT inv olving the brachiobasilic, axillary and subclavian veins. She has been anticoagulated. She is curre ntly on heparin, but she has had persistent pain and swelling in the arm. It is not tense and she warner s normal hand function but still has significant symptoms and I was asked to see her for potential th rombectomy of the DVT. PAST MEDICAL HISTORY: Again, significant for endocarditis, congestive heart failure. She has had se ptic emboli previously to the lungs. She has a history of IV drug abuse. She has some morbid obesit y and anxiety. CURRENT MEDICATIONS: 1. Consist of heparin drip IV. 2. Fluconazole. 3. Clotrimazole. 4. Vibramycin. 5. Metoprolol. 6. Pantoprazole. 8. Dilaudid. 9. Xanax. 10. Zofran. 11. Tylenol. ALLERGIES: SHE HAS NO KNOWN DRUG ALLERGIES. SOCIAL HISTORY: She denies smoking. She does not drink. Currently, she is not abusing any intraven ous drugs, but she does have a history of it. FAMILY HISTORY: Noncontributory. Father had diabetes and maybe a question of DVT. REVIEW OF SYSTEMS: She currently denies any chest pain or shortness of breath. She does have persis tent swelling and pain in the right arm and mainly up in the chest area under the clavicle and in the shoulder region. No pain in the left arm. No pain in the legs. No abdominal or back pain. No fev ers or chills. No recent weight gain or weight loss. PHYSICAL EXAMINATION: GENERAL: She is a youngish -[place] woman. She is in no acute distress. She appears older than her stated age. VITAL SIGNS: She has been afebrile. Her blood pressure is 144/84, heart rate is 94, respiratory rat e is 20. She is 100% sat on room air. NECK: She has 2+ carotid, radial and brachial pulses bilaterally. LUNGS: Clear. HEART: Regular rate and rhythm. EXTREMITIES: She has 2 to 3+ right arm edema. Hand is a little bit swollen, not terribly. Forearm has 2+ edema and the upper arm is 2 to 3+ edema, it is also pretty obese. There is a lot of tenderne ss over the upper arm and over the chest wall under the clavicle. There is really no edema on the le ft. She has a PICC line on the left. ABDOMEN: Soft, nontender. MUSCULOSKELETAL: She has 2+ DP and PT pulses bilaterally. LABORATORY DATA: Show normal white count, normal platelet count, normal creatinine and GFR. Her blo od cultures from a week ago still show no growth. She had a venous duplex scan done on 08/15/2018 th at showed right subclavian, axillary, brachial and basilic DVT with no flow noted. It has not been r epeated since then. She had a lower extremity ultrasound that showed no DVT in the left leg. She warner d an echo done on 08/16/2018 that was basically normal, showed normal EF, no evidence of endocarditis . IMPRESSION: Extensive right axillary subclavian DVT from a PICC line that was removed about 2 weeks ago. She is having a lot of persistent symptoms and swelling. I discussed that I thought it would b e reasonable to attempt a percutaneous thrombectomy using AngioJet. The alternative would be just to continue anticoagulation. Her symptoms really have persisted and if we can get the clot out, I thin k her symptoms will resume much quicker and in the long run, she will probably be better off with juan e flow through the central veins. So, when she is agreeable, we are going to proceed with a right ar m venogram, possible percutaneous mechanical and/or chemical lysis, possible venoplasty. I explained to her that she may have blood in the urine afterwards just from the ureolytic properties of the Ang ioJet; it is going to fuse up the blood cells in the clot and this sometimes comes out as blood in th e urine, but that it is benign and it will resolve. Dictated By: KI SANCHEZ/ELSY Conf#: [id number] [facility]#: [id number] CC: JOHN WILCOX NP; IVA MURRAY MD; CHRIS ANGEL MD; MENDOZA DIAZ MD; JENNY [place]; KI PEACE MD;*EndCC*
[2018-08-25] MEDS: HYDROmorphONE 2 MG/ML SYG IV PRN ×4 (13:55→23:22)
[2018-08-25 14:05] VITALS: BP 155/98; PULSE 87; RESP 20
--- NOTE | 2018-08-25 14:15 | CONS ---
Assessment/Plan Assessment/Plan Hospital Course (Demo Recall) Feeling better Microbiology: Blood cultures negative Antimicrobials: Doxycycline Physical examination: Obese well-developed middle-aged woman who is alert in no distress. Head atraumatic normocephalic neck is supple chest rise symmetrical breath sounds clear heart: S1-S2 abdomen soft bowel sounds present extremities with right upper extremity edema Assessment: 1. Right upper extremity DVT/cellulitis 2. 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 Obesity 4. History of MSSA bacteremia 07/12/18 5. Vaginal yeast==> s/p Diflucan Plan: Remains stable, continue present care Consultation Date/Type/Reason Admit Date/Time Aug 15, 2018 at 10:07 Initial Consult Date Type of Consult id Requesting Provider: JHOANA CAMPA NP Date/Time of Note DATE: 08/25/18 TIME: 14:14 Exam/Review of Systems Exam Vitals Vital Signs Date Temp Pulse Resp B/P (MAP) Pulse Ox O2 O2 Flow FiO2 Time Delivery Rate 08/25/18 87 20 155/98 95 Room Air 14:05 (117) 08/25/18 97.5 07:52 Intake and Output 08/24/18 08/24/18 08/25/18 1515:00 23:00 07:00 IntakeIntake Total 320 ml 250 ml BalanceBalance 320 ml 250 ml Results Result Diagram: 08/23/18 1639 08/23/18 1042 Results 24hrs Laboratory Tests Test 08/25/18 00:34 08/25/18 09:16 Activated Partial Thromboplast Time 76.8 *H 71.7 *H Medications Medication Current Medications IV Flush (NS 3 ml) 3 ml PER PROTOCOL IV Last administered on 08/22/18at 04:07; Admin Dose 3 ML; Start 08/15/18 at 14:00 Ondansetron HCl (Zofran Inj) 4 mg Q6H PRN IV NAUSEA/VOMITING; Start 08/15/18 at 14:00 Acetaminophen (Tylenol Tab) 650 mg Q6H PRN PO .PAIN 1-3 OR TEMP Last administered on 08/23/18at 08:48; Admin Dose 650 MG; Start 08/15/18 at 14:00 Docusate Sodium (Colace) 100 mg Q12H PRN PO .CONSTIPATION; Start 08/15/18 at 14:00 Magnesium Hydroxide (Milk Of Mag) 30 ml DAILY PRN PO .CONSTIPATION; Start 08/15/18 at 14:00 Bisacodyl (Dulcolax Supp) 10 mg DAILY PRN [place] .CONSTIPATION; Start 08/15/18 at 14:00 Alprazolam (Xanax) 1 mg BID PRN PO ANXIETY Last administered on 08/25/18at 08:34; Admin Dose 1 MG; Start 08/15/18 at 14:30 Pantoprazole (Protonix Tab) 40 mg DAILY@06 PO Last administered on 08/24/18at 05:03; Admin Dose 40 MG; Start 08/18/18 at 06:00 Metoprolol Tartrate (Lopressor) 25 mg BID PO Last administered on 08/25/18at 08:35; Admin Dose 25 MG; Start 08/19/18 at 21:00 Alteplase, Recombinant (Cathflo (Activase)) 2 mg MAY REPEAT X1 PRN CATHETER IF CATHETER REMAINS OCCULUDED Last administered on 08/23/18at 00:05; Admin Dose 2 MG; Start 08/22/18 at 20:00 Doxycycline Hyclate (Vibramycin) 100 mg BID PO Last administered on 08/25/18at 08:34; Admin Dose 100 MG; Start 08/23/18 at 14:30 Heparin Sodium (Porcine) (Heparin (1000 Units/ml)) 9,100 unit PER PROTOCOL PRN IV aPTT<47 Last administered on 08/24/18at 17:36; Admin Dose 9,100 UNIT; Start 08/23/18 at 14:30 Heparin Sodium (Porcine) (Heparin (1000 Units/ml)) 4,500 unit PER PROTOCOL PRN IV aPTT<47-57; Start 08/23/18 at 14:30 Heparin Sodium (Porcine) 250 ml @ 20 mls/hr PER PROTOCOL IV Last administered on 08/25/18at 06:03; Admin Dose 20 MLS/HR; Start 08/23/18 at 14:30 Alteplase, Recombinant (Cathflo (Activase)) 2 mg MAY REPEAT X1 PRN CATHETER IF CATHETER REMAINS OCCULUDED Last administered on 08/24/18at 09:15; Admin Dose 2 MG; Start 08/24/18 at 07:00 Fluconazole (Diflucan) 100 mg DAILY PO Last administered on 08/24/18at 13:40; Admin Dose 100 MG; Start 08/24/18 at 11:30 Clotrimazole (Lotrimin Cr) 1 applic BID PRN TOP PRURITUS; Start 08/24/18 at 11:30 Oxycodone/ Acetaminophen (Percocet (5/ 325)) 2 tab Q6 PRN PO PAIN LEVEL 1-5 Last administered on 08/25/18at 09:39; Admin Dose 2 TAB; Start 08/24/18 at 16:30 Hydromorphone HCl (Dilaudid) 2 mg Q3H PRN IV .SEVERE PAIN 7-10 Last administered on 08/25/18at 13:55; Admin Dose 2 MG; Start 08/25/18 at 10:30 Alteplase, Recombinant (Cathflo (Activase)) 2 mg ONCE CATHETER ; Start 08/25/18 at 12:00; Stop 08/25/18 at 16:00 BLANCA LR NP Aug 25, 2018 14:15
--- NOTE | 2018-08-25 15:25 | CONS ---
Assessment/Plan Assessment/Plan Hospital Course (Demo Recall) #RUE DVT - related to prior PICC line #CHF #endocarditis -given the persistent RUE pain, pt is now s/p thrombectomy -continue heparin gtt for now -will perform hyper coagulable workup as an out patient, especially given her family history of clotting -continue antibiotics for endocarditis Consultation Date/Type/Reason Admit Date/Time Aug 15, 2018 at 10:07 Initial Consult Date 08/17/18 Type of Consult hematology Reason for Consultation RUE DVT Requesting Provider: JHOANA CAMPA NP Date/Time of Note DATE: 08/25/18 TIME: 15:24 24 HR Interval Summary Free Text/Dictation pt is s/p thrombolysis Exam/Review of Systems Exam Vitals Vital Signs Date Temp Pulse Resp B/P (MAP) Pulse Ox O2 O2 Flow FiO2 Time Delivery Rate 08/25/18 87 20 155/98 95 Room Air 14:05 (117) 08/25/18 97.5 07:52 Intake and Output 08/24/18 08/24/18 08/25/18 1515:00 23:00 07:00 IntakeIntake Total 320 ml 250 ml BalanceBalance 320 ml 250 ml Constitutional: alert, oriented Psych: no complaints, depression Head: normocephalic Eyes: nl conjunctiva ENMT: nl external ears & nose Neck: supple Respiratory: clear to auscultation Cardiovascular: regular rate and rhythm Gastrointestinal: soft Musculoskeletal: nl extremities to inspection Results Result Diagram: 08/23/18 1639 08/23/18 1042 Results 24hrs Laboratory Tests Test 08/25/18 00:34 08/25/18 09:16 Activated Partial Thromboplast Time 76.8 *H 71.7 *H Medications Medication Current Medications IV Flush (NS 3 ml) 3 ml PER PROTOCOL IV Last administered on 08/22/18at 04:07; Admin Dose 3 ML; Start 08/15/18 at 14:00 Ondansetron HCl (Zofran Inj) 4 mg Q6H PRN IV NAUSEA/VOMITING; Start 08/15/18 at 14:00 Acetaminophen (Tylenol Tab) 650 mg Q6H PRN PO .PAIN 1-3 OR TEMP Last administered on 08/23/18at 08:48; Admin Dose 650 MG; Start 08/15/18 at 14:00 Docusate Sodium (Colace) 100 mg Q12H PRN PO .CONSTIPATION; Start 08/15/18 at 14:00 Magnesium Hydroxide (Milk Of Mag) 30 ml DAILY PRN PO .CONSTIPATION; Start 08/15/18 at 14:00 Bisacodyl (Dulcolax Supp) 10 mg DAILY PRN [place] .CONSTIPATION; Start 08/15/18 at 14:00 Alprazolam (Xanax) 1 mg BID PRN PO ANXIETY Last administered on 08/25/18at 08:34; Admin Dose 1 MG; Start 08/15/18 at 14:30 Pantoprazole (Protonix Tab) 40 mg DAILY@06 PO Last administered on 08/24/18at 05:03; Admin Dose 40 MG; Start 08/18/18 at 06:00 Metoprolol Tartrate (Lopressor) 25 mg BID PO Last administered on 08/25/18at 08:35; Admin Dose 25 MG; Start 08/19/18 at 21:00 Alteplase, Recombinant (Cathflo (Activase)) 2 mg MAY REPEAT X1 PRN CATHETER IF CATHETER REMAINS OCCULUDED Last administered on 08/23/18at 00:05; Admin Dose 2 MG; Start 08/22/18 at 20:00 Doxycycline Hyclate (Vibramycin) 100 mg BID PO Last administered on 08/25/18at 08:34; Admin Dose 100 MG; Start 08/23/18 at 14:30 Heparin Sodium (Porcine) (Heparin (1000 Units/ml)) 9,100 unit PER PROTOCOL PRN IV aPTT<47 Last administered on 08/24/18at 17:36; Admin Dose 9,100 UNIT; Start 08/23/18 at 14:30 Heparin Sodium (Porcine) (Heparin (1000 Units/ml)) 4,500 unit PER PROTOCOL PRN IV aPTT<47-57; Start 08/23/18 at 14:30 Heparin Sodium (Porcine) 250 ml @ 20 mls/hr PER PROTOCOL IV Last administered on 08/25/18at 06:03; Admin Dose 20 MLS/HR; Start 08/23/18 at 14:30 Alteplase, Recombinant (Cathflo (Activase)) 2 mg MAY REPEAT X1 PRN CATHETER IF CATHETER REMAINS OCCULUDED Last administered on 08/24/18at 09:15; Admin Dose 2 MG; Start 08/24/18 at 07:00 Fluconazole (Diflucan) 100 mg DAILY PO Last administered on 08/24/18at 13:40; Admin Dose 100 MG; Start 08/24/18 at 11:30 Clotrimazole (Lotrimin Cr) 1 applic BID PRN TOP PRURITUS; Start 08/24/18 at 11:30 Oxycodone/ Acetaminophen (Percocet (5/ 325)) 2 tab Q6 PRN PO PAIN LEVEL 1-5 Last administered on 08/25/18at 09:39; Admin Dose 2 TAB; Start 08/24/18 at 16:30 Hydromorphone HCl (Dilaudid) 2 mg Q3H PRN IV .SEVERE PAIN 7-10 Last administered on 08/25/18at 13:55; Admin Dose 2 MG; Start 08/25/18 at 10:30 Alteplase, Recombinant (Cathflo (Activase)) 2 mg ONCE CATHETER ; Start 08/25/18 at 12:00; Stop 08/25/18 at 16:00 ZHANE OMER M.D. Aug 25, 2018 15:25
--- NOTE | 2018-08-25 15:53 | CONS ---
Assessment/Plan Assessment/Plan Hospital Course (Demo Recall) IMPRESSION: 1. History of recently diagnosed endocarditis, assess for ongoing infection.- Bld cx remain NTD and TTE was without sig valvular findings this admit 2. Tachycardia, borderline consistent with sinus tachycardia-ongoing mild 3. Hypertension, labile may be related to pain, currently improved, off of antihypertensives recently today. 4. Deep venous thrombosis of the right extremity, likely secondary to PICC line that was in place.-ongoing pain. Now postop s/p venogramn with thrombolysis 5. Anemia. 6. Psychiatric disorder. Recc: -Now on med-surg -serial ecg's -Continue abx's and f/u cx data closely -Continue heparin anticogulation at this time s/p venogram by Dr. Bonds with thrombolysis -Continue low dose BB with reasonable HR/BP overall -pain control Consultation Date/Type/Reason Admit Date/Time Aug 15, 2018 at 10:07 Initial Consult Date 08/17/18 Type of Consult Cardiology Reason for Consultation endocarditis Requesting Provider: JHOANA CAMPA NP Date/Time of Note DATE: 08/25/18 TIME: 15:51 Exam/Review of Systems Vital Signs Vitals Vital Signs Date Temp Pulse Resp B/P (MAP) Pulse Ox O2 O2 Flow FiO2 Time Delivery Rate 08/25/18 87 20 155/98 95 Room Air 14:05 (117) 08/25/18 97.5 07:52 Intake and Output 08/24/18 08/24/18 08/25/18 1515:00 23:00 07:00 IntakeIntake Total 320 ml 250 ml BalanceBalance 320 ml 250 ml Exam Exam Review of Systems: CONSTITUTIONAL: No fevers, chills. PULMONARY: No sob CARDIOVASCULAR: No chest pain/palpitations GASTROINTESTINAL: No nausea/vomiting. GENITOURINARY: No hematuria/dysuria. MUSCULOSKELETAL: No myagias/arthalgias. PSYCHIATRIC: The patient denies depression. NEUROLOGIC: No weakness Constitutional: alert Psych: no complaints Head: normocephalic ENMT: mucosa pink and moist Neck: supple, jvd (9 cm water) Respiratory: diminished breath sounds Cardiovascular: regular rate and rhythm Gastrointestinal: soft, non-tender Musculoskeletal: muscle tone (normal) Extremities: edema (LUE) Neurological: other (no focal deficits) Labs Result Diagram: 08/23/18 1639 08/23/18 1042 Results 24hrs Laboratory Tests Test 08/25/18 00:34 08/25/18 09:16 Activated Partial Thromboplast Time 76.8 *H 71.7 *H Medications Medications Current Medications IV Flush (NS 3 ml) 3 ml PER PROTOCOL IV Last administered on 08/22/18at 04:07; Admin Dose 3 ML; Start 08/15/18 at 14:00 Ondansetron HCl (Zofran Inj) 4 mg Q6H PRN IV NAUSEA/VOMITING; Start 08/15/18 at 14:00 Acetaminophen (Tylenol Tab) 650 mg Q6H PRN PO .PAIN 1-3 OR TEMP Last administered on 08/23/18at 08:48; Admin Dose 650 MG; Start 08/15/18 at 14:00 Docusate Sodium (Colace) 100 mg Q12H PRN PO .CONSTIPATION; Start 08/15/18 at 14:00 Magnesium Hydroxide (Milk Of Mag) 30 ml DAILY PRN PO .CONSTIPATION; Start 08/15/18 at 14:00 Bisacodyl (Dulcolax Supp) 10 mg DAILY PRN [place] .CONSTIPATION; Start 08/15/18 at 14:00 Alprazolam (Xanax) 1 mg BID PRN PO ANXIETY Last administered on 08/25/18at 08:34; Admin Dose 1 MG; Start 08/15/18 at 14:30 Pantoprazole (Protonix Tab) 40 mg DAILY@06 PO Last administered on 08/24/18at 05:03; Admin Dose 40 MG; Start 08/18/18 at 06:00 Metoprolol Tartrate (Lopressor) 25 mg BID PO Last administered on 08/25/18at 08:35; Admin Dose 25 MG; Start 08/19/18 at 21:00 Alteplase, Recombinant (Cathflo (Activase)) 2 mg MAY REPEAT X1 PRN CATHETER IF CATHETER REMAINS OCCULUDED Last administered on 08/23/18at 00:05; Admin Dose 2 MG; Start 08/22/18 at 20:00 Doxycycline Hyclate (Vibramycin) 100 mg BID PO Last administered on 08/25/18at 08:34; Admin Dose 100 MG; Start 08/23/18 at 14:30 Heparin Sodium (Porcine) (Heparin (1000 Units/ml)) 9,100 unit PER PROTOCOL PRN IV aPTT<47 Last administered on 08/24/18at 17:36; Admin Dose 9,100 UNIT; Start 08/23/18 at 14:30 Heparin Sodium (Porcine) (Heparin (1000 Units/ml)) 4,500 unit PER PROTOCOL PRN IV aPTT<47-57; Start 08/23/18 at 14:30 Heparin Sodium (Porcine) 250 ml @ 20 mls/hr PER PROTOCOL IV Last administered on 08/25/18at 06:03; Admin Dose 20 MLS/HR; Start 08/23/18 at 14:30 Alteplase, Recombinant (Cathflo (Activase)) 2 mg MAY REPEAT X1 PRN CATHETER IF CATHETER REMAINS OCCULUDED Last administered on 08/24/18at 09:15; Admin Dose 2 MG; Start 08/24/18 at 07:00 Fluconazole (Diflucan) 100 mg DAILY PO Last administered on 08/24/18at 13:40; Admin Dose 100 MG; Start 08/24/18 at 11:30 Clotrimazole (Lotrimin Cr) 1 applic BID PRN TOP PRURITUS; Start 08/24/18 at 11:30 Oxycodone/ Acetaminophen (Percocet (5/ 325)) 2 tab Q6 PRN PO PAIN LEVEL 1-5 Last administered on 08/25/18at 09:39; Admin Dose 2 TAB; Start 08/24/18 at 16:30 Hydromorphone HCl (Dilaudid) 2 mg Q3H PRN IV .SEVERE PAIN 7-10 Last administered on 08/25/18at 13:55; Admin Dose 2 MG; Start 08/25/18 at 10:30 Alteplase, Recombinant (Cathflo (Activase)) 2 mg ONCE CATHETER ; Start 08/25/18 at 12:00; Stop 08/25/18 at 16:00 KI PEACE Aug 25, 2018 15:53
--- NOTE | 2018-08-25 18:55 | OPR ---
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 POSTOPERATIVE DIAGNOSIS: Right extensive axilla subclavian deep vein thrombosis. PROCEDURE PERFORMED: Right arm venogram and percutaneous mechanical and chemical thrombectomy of rig ht axillary and subclavian veins. SURGEON: Ki Bonds MD ANESTHESIA: Local with sedation. ESTIMATED BLOOD LOSS: Minimal. COMPLICATIONS: No intraprocedural complications. INDICATIONS: This is a 32-year-old woman. She has endocarditis. She is being treated with IV antib iotics. She had a PICC line in the right arm and developed fairly severe swelling several weeks ago. It was removed and then afterwards she was found to have thromboses of the right basilic, brachial, axillary, and subclavian veins. She had a lot of swelling and pain. I was asked to see her to cons ider thrombectomy. I discussed it with her. She has been anticoagulated and really has not improved that much with anticoagulation, so I thought it would be reasonable to try. It has been probably mo re than 2 weeks since the thrombi developed. I told her it may or may not be successful. We were ab le to get most of the clot out of the central veins in the subclavian and the axillary. The upper br achial and lower axillary had very dense calcified looking thrombus that I was unable to clear, but t he central veins are now open. DESCRIPTION OF PROCEDURE: The patient was brought to the cardiac cath tech and placed on the table in the sup ine position. Right arm was prepped and draped in the usual sterile fashion. I began by using ultra sound to identify the basilic vein in the right arm just right at the elbow. It was patent at this l evel. I could see it was thrombosed higher up, but it was patent there at the elbow. I infiltrated over the vein using about 10 mL of 1% Xylocaine. I used a micropuncture needle to enter the basilic vein under ultrasound guidance. An 0.018 wire was inserted through the needle into vein, and the grazyna ropuncture sheath was advanced over the wire into the vein. There was no blood return when I put the sheath in. I advanced a Glidewire. I was able to get the Glidewire up to about the shoulder area. I then exchanged the micropuncture sheath for a 6-[place]izen [place] sheath over the wire. I then used a 0.035 glide cath and Glidewire to advance the catheter and the wire through the occluded veins and into the superior vena cava. I then injected through the sheath and I could see some collaterals coming back up towards the shoulder, but the basilic vein, the brachial vein, axillary and subclavian were all o ccluded. I advanced the Glidecath into the superior vena cava and injected it. It was clearly paten t, but more the proximal veins were all occluded site. I then exchanged for a 260 cm 0.035 Glidewire which I left in the right atrium and then proceeded to use a 6 Citizen [place] AngioJet device. She was alre eliza on a heparin drip. I just continued that through the procedure. Then I did a pulse spray with t zachary AngioJet. We put 2 mg of TPA and 50 mL of saline and then I proceeded to pulse the TPA through th e subclavian and axillary veins and the upper brachial vein and then I let it sit for 10 minutes. We then switched to non-pulse spray on the AngioJet and I made multiple passes through the subclavian, axillary, and then upper basilic and brachial veins. I got out about 150 mL of bloody fluid from the AngioJet. I injected again through the sheath down the basilic and I could see better filling. I c ould see contrast going up and on the way out I passed the AngioJet through the entire basilic vein a nd all the way down almost to the elbow. I could see now filling going up to the junction between th e axillary and subclavian veins, but still I could a lot of thrombus. There was contrast in the thro mbus, but I could still see that it was occluded there. I wanted to balloon it, so I used a 6 mm x 2 00 mm balloon. I advanced it over the wire and she just did not tolerate balloon passage. I then in flated it to try to pass it through that area. The subclavian was very painful and had a lot of resi stance. I think it was just very densely adherent thrombus. She did not tolerate it, started gettin g nauseated and agitated, so I stopped. I did not inflate the balloon. I then advanced the [place] ba ck into the axillary vein and injected through there, and I now could see on the other side of that t hrombus in the upper basilic vein the central veins were not patent. The axillary and subclavian vei ns were clear. There was brisk flow going right down into the superior vena cava, so I was able to o pen the central veins. The more peripheral veins still are thrombosed. She was not tolerating any f urther intervention on those just due to pain, so I then removed all the catheter sheaths and wires. We held pressure on the puncture site. The vein was initially occluded, so I do think there is a lo t of flow there, but there was good hemostasis. We then wrapped the arm with an Cisco wrap from the warner nd all the way up to the shoulder. She needs to keep the arm elevated. We are going to continue the heparin overnight. We will start her back on Eliquis tomorrow, but there is really no further inter vention that is going to benefit her. The TPA that I infused will probably continue to improve some of the thrombus in the arm, even over the next several hours, and I discussed this all with her and h er family. They understand the situation. She also will likely develop hematuria. The AngioJet, it really lyses all of the red blood cells and the thrombus and causes hematuria. It is not bleeding a nd it is not anything that needs treated. It will just resolve with time and as she urinates out the byproducts. She tolerated the procedure well and was transferred back to room in stable condition. Dictated By: KI SANCHEZ/ELSY Conf#: [id number] DID#: [id number] CC: ESTRELLITA ANGEL MD; MENDOZA DIAZ MD; JOHN WILL NP;*End*
[2018-08-25 20:12] VITALS: BP 138/79; PULSE 75; RESP 17
[2018-08-25 23:52] VITALS: BP 136/75; PULSE 72; RESP 18
[2018-08-26] MEDS: HYDROmorphONE 2 MG/ML SYG IV PRN ×7 (02:24→21:05)
[2018-08-26] MEDS: OXYCODONE/ACETAMINOPHEN (5/325) TAB PO PRN ×4 (04:37→23:12)
[2018-08-26] MEDS: PANTOPRAZOLE (EC) 40 MG TAB PO SCH (05:42)
[2018-08-26 07:52] VITALS: BP 143/60; PULSE 93; RESP 17
[2018-08-26] MEDS: ACETAMINOPHEN 325 MG TAB PO PRN (07:56)
[2018-08-26] MEDS: APIXABAN 5 MG TABLET PO SCH ×2 (08:12→21:13)
[2018-08-26] MEDS: ALPRAZOLAM 1 MG TAB PO PRN ×2 (08:12→21:34)
[2018-08-26] MEDS: FLUCONAZOLE 100 MG TAB PO SCH (08:12)
[2018-08-26] MEDS: DOXYCYCLINE 100 MG TAB PO SCH (08:12)
[2018-08-26] MEDS: METOPROLOL 25 MG TAB PO SCH ×2 (08:13→21:14)
--- NOTE | 2018-08-26 13:21 | PN ---
Date/Time of Note Date/Time of Note DATE: 08/26/18 TIME: 13:17 Assessment/Plan VTE Prophylaxis Risk score (from Nsg)>0 risk: 6 SCD applied (from Nsg): Yes Pharmacological prophylaxis: apixaban Lines/Catheters IV Catheter Type (from Nrsg): PICC Line Central line still needed: Yes Urinary Cath still in place: No Assessment/Plan Hospital Course 1. Extensive DVT of the right upper extremity. s/p Right arm venogram and percutaneous mechanical and chemical thrombectomy of right axillary and subclavian veins August 25, 2018 continued on eliquis Hematology following. Vascular surgeon following 2. Reported history of endocarditis Cardiology following continue ID recommendations 3. Morbid obesity. BMI more than 42 kg/m. weight reduction was advised 4. Anxiety disorder. Continue PRN anxiolytics. 5. Normocytic anemia. Monitor H&H Disposition and plan. on eliquis. continue pain management. f/u consult recommendations. d/c planning Discussed POC with Dr. Ramirez Result Diagram: 08/26/18 0448 08/26/188 Results 24hrs Laboratory Tests Test 08/25/18 15:48 08/26/18 04:48 Activated Partial Thromboplast Time 71.6 *H 53.9 H White Blood Count 6.6 Red Blood Count 3.20 L Hemoglobin 9.0 L Hematocrit 29.6 L Mean Corpuscular Volume 92.5 Mean Corpuscular Hemoglobin 28.1 L Mean Corpuscular Hemoglobin Concent 30.4 L Red Cell Distribution Width 14.6 H Platelet Count 252 # Mean Platelet Volume 10.9 H Immature Granulocytes % 0.300 Neutrophils % 51.2 Lymphocytes % 39.2 Monocytes % 7.4 Eosinophils % 1.4 Basophils % 0.5 Nucleated Red Blood Cells % 0.0 Immature Granulocytes # 0.020 Neutrophils # 3.4 Lymphocytes # 2.6 Monocytes # 0.5 Eosinophils # 0.1 Basophils # 0.0 Nucleated Red Blood Cells # 0.0 Sodium Level 138 Potassium Level 4.1 Chloride Level 106 Carbon Dioxide Level 25 Anion Gap 7 Blood Urea Nitrogen 15 Creatinine 0.52 Est Glomerular Filtrat Rate mL/min > 60 Glucose Level 104 Calcium Level 8.9 Magnesium Level 1.5 L Subjective 24 Hr Interval Summary Free Text/Dictation reports less pain on right arm Exam/Review of Systems Exam Vitals Vital Signs Date Temp Pulse Resp B/P (MAP) Pulse Ox O2 O2 Flow FiO2 Time Delivery Rate 08/26/18 98.6 93 17 143/60 100 Room Air 07:52 (87) Intake and Output 08/25/18 08/25/18 08/26/18 1515:00 23:00 07:00 IntakeIntake Total 820 ml 600 ml BalanceBalance 820 ml 600 ml Exam Constitutional: alert, oriented Psych: anxiety Head: normocephalic Respiratory: clear to auscultation, normal air movement Cardiovascular: other (Regular rate) Gastrointestinal: soft Extremities: edema (Right upper extremity) Neurological: COLLECTIONS REP II-XII intact, nl mental status, nl speech Results Results 24hrs Laboratory Tests Test 08/25/18 15:48 08/26/18 04:48 Activated Partial Thromboplast Time 71.6 *H 53.9 H White Blood Count 6.6 Red Blood Count 3.20 L Hemoglobin 9.0 L Hematocrit 29.6 L Mean Corpuscular Volume 92.5 Mean Corpuscular Hemoglobin 28.1 L Mean Corpuscular Hemoglobin Concent 30.4 L Red Cell Distribution Width 14.6 H Platelet Count 252 # Mean Platelet Volume 10.9 H Immature Granulocytes % 0.300 Neutrophils % 51.2 Lymphocytes % 39.2 Monocytes % 7.4 Eosinophils % 1.4 Basophils % 0.5 Nucleated Red Blood Cells % 0.0 Immature Granulocytes # 0.020 Neutrophils # 3.4 Lymphocytes # 2.6 Monocytes # 0.5 Eosinophils # 0.1 Basophils # 0.0 Nucleated Red Blood Cells # 0.0 Sodium Level 138 Potassium Level 4.1 Chloride Level 106 Carbon Dioxide Level 25 Anion Gap 7 Blood Urea Nitrogen 15 Creatinine 0.52 Est Glomerular Filtrat Rate mL/min > 60 Glucose Level 104 Calcium Level 8.9 Magnesium Level 1.5 L Medications Medication Current Medications IV Flush (NS 3 ml) 3 ml PER PROTOCOL IV Last administered on 08/22/18at 04:07; Admin Dose 3 ML; Start 08/15/18 at 14:00 Ondansetron HCl (Zofran Inj) 4 mg Q6H PRN IV NAUSEA/VOMITING Last administered on 08/25/18at 15:47; Admin Dose 4 MG; Start 08/15/18 at 14:00 Acetaminophen (Tylenol Tab) 650 mg Q6H PRN PO .PAIN 1-3 OR TEMP Last administered on 08/26/18at 07:56; Admin Dose 650 MG; Start 08/15/18 at 14:00 Docusate Sodium (Colace) 100 mg Q12H PRN PO .CONSTIPATION; Start 08/15/18 at 14:00 Magnesium Hydroxide (Milk Of Mag) 30 ml DAILY PRN PO .CONSTIPATION; Start 08/15/18 at 14:00 Bisacodyl (Dulcolax Supp) 10 mg DAILY PRN [place] .CONSTIPATION; Start 08/15/18 at 14:00 Alprazolam (Xanax) 1 mg BID PRN PO ANXIETY Last administered on 08/26/18at 08:12; Admin Dose 1 MG; Start 08/15/18 at 14:30 Pantoprazole (Protonix Tab) 40 mg DAILY@06 PO Last administered on 08/24/18 05:03; Admin Dose 40 MG; Start 08/18/18 at 06:00 Metoprolol Tartrate (Lopressor) 25 mg BID PO Last administered on 08/26/18at 08:13; Admin Dose 25 MG; Start 08/19/18 at 21:00 Alteplase, Recombinant (Cathflo (Activase)) 2 mg MAY REPEAT X1 PRN CATHETER IF CATHETER REMAINS OCCULUDED Last administered on 08/23/18at 00:05; Admin Dose 2 MG; Start 08/22/18 at 20:00 Doxycycline Hyclate (Vibramycin) 100 mg BID PO Last administered on 08/26/18at 08:12; Admin Dose 100 MG; Start 08/23/18 at 14:30 Alteplase, Recombinant (Cathflo (Activase)) 2 mg MAY REPEAT X1 PRN CATHETER IF CATHETER REMAINS OCCULUDED Last administered on 08/24/18at 09:15; Admin Dose 2 MG; Start 08/24/18 at 07:00 Fluconazole (Diflucan) 100 mg DAILY PO Last administered on 08/26/18 08:12; Admin Dose 100 MG; Start 08/24/18 at 11:30 Clotrimazole (Lotrimin Cr) 1 applic BID PRN TOP PRURITUS; Start 08/24/18 at 11:30 Oxycodone/ Acetaminophen (Percocet (5/ 325)) 2 tab Q6 PRN PO PAIN LEVEL 1-5 Last administered on 08/26/18at 10:37; Admin Dose 2 TAB; Start 08/24/18 at 16:30 Hydromorphone HCl (Dilaudid) 2 mg Q3H PRN IV .SEVERE PAIN 7-10 Last administered on 08/26/18at 11:46; Admin Dose 2 MG; Start 08/25/18 at 10:30 Apixaban (Eliquis) 5 mg BID PO Last administered on 08/26/18at 08:12; Admin Dose 5 MG; Start 08/26/18 at 09:00 JOHN WILL NP Aug 26, 2018 13:21
[2018-08-26] MEDS ORDERED: MAGNESIUM SULFATE 2 GM/50 ML 50 ML IVPB ONE (13:30)
--- NOTE | 2018-08-26 13:46 | CONS ---
Assessment/Plan Assessment/Plan Hospital Course (Demo Recall) #RUE DVT - related to prior PICC line #CHF #endocarditis -given the persistent RUE pain, pt is now s/p thrombectomy -pt now off heparin gtt and back on eliquis -will perform hyper coagulable workup as an out patient, especially given her family history of clotting -continue antibiotics for endocarditis. pt has completed 6 weeks of IV abx. now on Doxycycline Consultation Date/Type/Reason Admit Date/Time Aug 15, 2018 at 10:07 Initial Consult Date 08/17/18 Type of Consult hematology Reason for Consultation RUE pain Requesting Provider: JHOANA CAMPA NP Date/Time of Note DATE: 08/26/18 TIME: 13:44 24 HR Interval Summary Free Text/Dictation Heparin gtt was stopped. pt back on eliquis. continues on doxycyclin. still ne eds pain meds ATC Exam/Review of Systems Exam Vitals Vital Signs Date Temp Pulse Resp B/P (MAP) Pulse Ox O2 O2 Flow FiO2 Time Delivery Rate 08/26/18 98.6 93 17 143/60 100 Room Air 07:52 (87) Intake and Output 08/25/18 08/25/18 08/26/18 1515:00 23:00 07:00 IntakeIntake Total 820 ml 600 ml BalanceBalance 820 ml 600 ml Constitutional: alert, oriented Psych: anxiety, depression Head: normocephalic ENMT: nl external ears & nose Neck: supple Respiratory: clear to auscultation Cardiovascular: regular rate and rhythm Gastrointestinal: soft Genitourinary - Female: nl adnexae Musculoskeletal: swelling (RUE) Extremities: normal pulses Results Result Diagram: 08/26/18 0448 08/26/18 0448 Results 24hrs Laboratory Tests Test 08/25/18 15:48 08/26/18 04:48 Activated Partial Thromboplast Time 71.6 *H 53.9 H White Blood Count 6.6 Red Blood Count 3.20 L Hemoglobin 9.0 L Hematocrit 29.6 L Mean Corpuscular Volume 92.5 Mean Corpuscular Hemoglobin 28.1 L Mean Corpuscular Hemoglobin Concent 30.4 L Red Cell Distribution Width 14.6 H Platelet Count 252 # Mean Platelet Volume 10.9 H Immature Granulocytes % 0.300 Neutrophils % 51.2 Lymphocytes % 39.2 Monocytes % 7.4 Eosinophils % 1.4 Basophils % 0.5 Nucleated Red Blood Cells % 0.0 Immature Granulocytes # 0.020 Neutrophils # 3.4 Lymphocytes # 2.6 Monocytes # 0.5 Eosinophils # 0.1 Basophils # 0.0 Nucleated Red Blood Cells # 0.0 Sodium Level 138 Potassium Level 4.1 Chloride Level 106 Carbon Dioxide Level 25 Anion Gap 7 Blood Urea Nitrogen 15 Creatinine 0.52 Est Glomerular Filtrat Rate mL/min > 60 Glucose Level 104 Calcium Level 8.9 Magnesium Level 1.5 L Medications Medication Current Medications IV Flush (NS 3 ml) 3 ml PER PROTOCOL IV Last administered on 08/22/18 04:07; Admin Dose 3 ML; Start 08/15/18 at 14:00 Ondansetron HCl (Zofran Inj) 4 mg Q6H PRN IV NAUSEA/VOMITING Last administered on 08/25/18at 15:47; Admin Dose 4 MG; Start 08/15/18 at 14:00 Acetaminophen (Tylenol Tab) 650 mg Q6H PRN PO .PAIN 1-3 OR TEMP Last administered on 08/26/18at 07:56; Admin Dose 650 MG; Start 08/15/18 at 14:00 Docusate Sodium (Colace) 100 mg Q12H PRN PO .CONSTIPATION; Start 08/15/18 at 14:00 Magnesium Hydroxide (Milk Of Mag) 30 ml DAILY PRN PO .CONSTIPATION; Start 08/15/18 at 14:00 Bisacodyl (Dulcolax Supp) 10 mg DAILY PRN OR .CONSTIPATION; Start 08/15/18 at 14:00 Alprazolam (Xanax) 1 mg BID PRN PO ANXIETY Last administered on 08/26/18at 08:12; Admin Dose 1 MG; Start 08/15/18 at 14:30 Pantoprazole (Protonix Tab) 40 mg DAILY@06 PO Last administered on 08/24/18 05:03; Admin Dose 40 MG; Start 08/18/18 at 06:00 Metoprolol Tartrate (Lopressor) 25 mg BID PO Last administered on 08/26/18 08:13; Admin Dose 25 MG; Start 08/19/18 at 21:00 Alteplase, Recombinant (Cathflo (Activase)) 2 mg MAY REPEAT X1 PRN CATHETER IF CATHETER REMAINS OCCULUDED Last administered on 08/23/18 00:05; Admin Dose 2 MG; Start 08/22/18 at 20:00 Doxycycline Hyclate (Vibramycin) 100 mg BID PO Last administered on 08/26/18 08:12; Admin Dose 100 MG; Start 08/23/18 at 14:30 Alteplase, Recombinant (Cathflo (Activase)) 2 mg MAY REPEAT X1 PRN CATHETER IF CATHETER REMAINS OCCULUDED Last administered on 08/24/18at 09:15; Admin Dose 2 MG; Start 08/24/18 at 07:00 Fluconazole (Diflucan) 100 mg DAILY PO Last administered on 08/26/18 08:12; Admin Dose 100 MG; Start 08/24/18 at 11:30 Clotrimazole (Lotrimin Cr) 1 applic BID PRN TOP PRURITUS; Start 08/24/18 at 11:30 Oxycodone/ Acetaminophen (Percocet (5/ 325)) 2 tab Q6 PRN PO PAIN LEVEL 1-[address] administered on 08/26/18at 10:37; Admin Dose 2 TAB; Start 08/24/18 at 16:30 Hydromorphone HCl (Dilaudid) 2 mg Q3H PRN IV .SEVERE PAIN 7-10 Last administered on 08/26/18at 11:46; Admin Dose 2 MG; Start 08/25/18 at 10:30 Apixaban (Eliquis) 5 mg BID PO Last administered on 08/26/18 08:12; Admin Dose 5 MG; Start 08/26/18 at 09:00 Magnesium Sulfate 50 ml @ 25 mls/hr ONCE ONCE IVPB ; Start 08/26/18 at 13:30; Stop 08/26/18 at 15:29 ZHANE OMER M.D. Aug 26, 2018 13:46
--- NOTE | 2018-08-26 14:08 | CONS ---
Assessment/Plan Assessment/Plan Hospital Course (Demo Recall) IMPRESSION: 1. History of recently diagnosed endocarditis, assess for ongoing infection.- Bld cx remain NTD and TTE was without sig valvular findings this admit 2. Tachycardia, borderline consistent with sinus tachycardia-ongoing mild 3. Hypertension, labile may be related to pain, currently improved, off of antihypertensives recently today. 4. Deep venous thrombosis of the right extremity, likely secondary to PICC line that was in place.-ongoing pain. Now postop s/p venogramn with thrombolysis with improving symptoms overall 5. Anemia. 6. Psychiatric disorder. Recc: -Now on med-surg -serial ecg's -Continue now doxycycline and f/u cx data closely -now resumed on eliquis, follow exam closely -Continue low dose BB with reasonable HR/BP overall -pain control Consultation Date/Type/Reason Admit Date/Time Aug 15, 2018 at 10:07 Initial Consult Date 08/17/18 Type of Consult Cardiology Reason for Consultation HTN Requesting Provider: JHOANA CAMPA NP Date/Time of Note DATE: 08/26/18 TIME: 14:05 Exam/Review of Systems Vital Signs Vitals Vital Signs Date Temp Pulse Resp B/P (MAP) Pulse Ox O2 O2 Flow FiO2 Time Delivery Rate 08/26/18 98.6 93 17 143/60 100 Room Air 07:52 (87) Intake and Output 08/25/18 08/25/18 08/26/18 1515:00 23:00 07:00 IntakeIntake Total 820 ml 600 ml BalanceBalance 820 ml 600 ml Exam Exam Review of Systems: CONSTITUTIONAL: No fevers, chills. PULMONARY: No sob CARDIOVASCULAR: No chest pain/palpitations GASTROINTESTINAL: No nausea/vomiting. GENITOURINARY: No hematuria/dysuria. MUSCULOSKELETAL: mild pain in arm PSYCHIATRIC: The patient denies depression. NEUROLOGIC: No weakness Constitutional: alert, oriented Psych: no complaints Head: normocephalic ENMT: mucosa pink and moist Neck: supple, jvd (9 cm water) Respiratory: clear to auscultation Cardiovascular: regular rate and rhythm Gastrointestinal: soft, non-tender Musculoskeletal: muscle tone (normal) Extremities: edema (LUE) Neurological: other (no focal deficits) Labs Result Diagram: 08/26/188 08/26/188 Results 24hrs Laboratory Tests Test 08/25/18 15:48 08/26/18 04:48 Activated Partial Thromboplast Time 71.6 *H 53.9 H White Blood Count 6.6 Red Blood Count 3.20 L Hemoglobin 9.0 L Hematocrit 29.6 L Mean Corpuscular Volume 92.5 Mean Corpuscular Hemoglobin 28.1 L Mean Corpuscular Hemoglobin Concent 30.4 L Red Cell Distribution Width 14.6 H Platelet Count 252 # Mean Platelet Volume 10.9 H Immature Granulocytes % 0.300 Neutrophils % 51.2 Lymphocytes % 39.2 Monocytes % 7.4 Eosinophils % 1.4 Basophils % 0.5 Nucleated Red Blood Cells % 0.0 Immature Granulocytes # 0.020 Neutrophils # 3.4 Lymphocytes # 2.6 Monocytes # 0.5 Eosinophils # 0.1 Basophils # 0.0 Nucleated Red Blood Cells # 0.0 Sodium Level 138 Potassium Level 4.1 Chloride Level 106 Carbon Dioxide Level 25 Anion Gap 7 Blood Urea Nitrogen 15 Creatinine 0.52 Est Glomerular Filtrat Rate mL/min > 60 Glucose Level 104 Calcium Level 8.9 Magnesium Level 1.5 L Medications Medications Current Medications IV Flush (NS 3 ml) 3 ml PER PROTOCOL IV Last administered on 08/22/18at 04:07; Admin Dose 3 ML; Start 08/15/18 at 14:00 Ondansetron HCl (Zofran Inj) 4 mg Q6H PRN IV NAUSEA/VOMITING Last administered on 08/25/18at 15:47; Admin Dose 4 MG; Start 08/15/18 at 14:00 Acetaminophen (Tylenol Tab) 650 mg Q6H PRN PO .PAIN 1-3 OR TEMP Last administered on 08/26/18at 07:56; Admin Dose 650 MG; Start 08/15/18 at 14:00 Docusate Sodium (Colace) 100 mg Q12H PRN PO .CONSTIPATION; Start 08/15/18 at 14:00 Magnesium Hydroxide (Milk Of Mag) 30 ml DAILY PRN PO .CONSTIPATION; Start 08/15/18 at 14:00 Bisacodyl (Dulcolax Supp) 10 mg DAILY PRN [place] .CONSTIPATION; Start 08/15/18 at 14:00 Alprazolam (Xanax) 1 mg BID PRN PO ANXIETY Last administered on 08/26/18at 08:12; Admin Dose 1 MG; Start 08/15/18 at 14:30 Pantoprazole (Protonix Tab) 40 mg DAILY@06 PO Last administered on 08/24/18at 05:03; Admin Dose 40 MG; Start 08/18/18 at 06:00 Metoprolol Tartrate (Lopressor) 25 mg BID PO Last administered on 08/26/18at 08:13; Admin Dose 25 MG; Start 08/19/18 at 21:00 Alteplase, Recombinant (Cathflo (Activase)) 2 mg MAY REPEAT X1 PRN CATHETER IF CATHETER REMAINS OCCULUDED Last administered on 08/23/18at 00:05; Admin Dose 2 MG; Start 08/22/18 at 20:00 Doxycycline Hyclate (Vibramycin) 100 mg BID PO Last administered on 08/26/18at 08:12; Admin Dose 100 MG; Start 08/23/18 at 14:30 Alteplase, Recombinant (Cathflo (Activase)) 2 mg MAY REPEAT X1 PRN CATHETER IF CATHETER REMAINS OCCULUDED Last administered on 08/24/18at 09:15; Admin Dose 2 MG; Start 08/24/18 at 07:00 Fluconazole (Diflucan) 100 mg DAILY PO Last administered on 08/26/18at 08:12; Admin Dose 100 MG; Start 08/24/18 at 11:30 Clotrimazole (Lotrimin Cr) 1 applic BID PRN TOP PRURITUS; Start 08/24/18 at 11:30 Oxycodone/ Acetaminophen (Percocet (5/ 325)) 2 tab Q6 PRN PO PAIN LEVEL 1-5 Last administered on 08/26/18at 10:37; Admin Dose 2 TAB; Start 08/24/18 at 16:30 Hydromorphone HCl (Dilaudid) 2 mg Q3H PRN IV .SEVERE PAIN 7-10 Last administered on 08/26/18at 11:46; Admin Dose 2 MG; Start 08/25/18 at 10:30 Apixaban (Eliquis) 5 mg BID PO Last administered on 08/26/18at 08:12; Admin Dose 5 MG; Start 08/26/18 at 09:00 Magnesium Sulfate 50 ml @ 25 mls/hr ONCE ONCE IVPB ; Start 08/26/18 at 13:30; Stop 08/26/18 at 15:29 KI PEACE 18, 2019 14:08
--- NOTE | 2018-08-26 15:17 | PN ---
Date/Time of Note Date/Time of Note DATE: 08/26/18 TIME: 15:13 Assessment/Plan Lines/Catheters IV Catheter Type (from Nrsg): PICC Line King in Place (from Nrsg): No Assessment/Plan Assessment/Plan Doing well s/p R arm axillosubclavian vein thrombectomy yesterday, edema and pain are gone Continue NANCY wrap and arm elevation Heparin was stopped this AM, continue Eliquis x 6-8 weeks OK for d/c from my standpoint f/u with me in the office in 2 weeks Subjective 24 Hr Interval Summary No pain except at site of catheter insertion for procedure yesterday. R arm edema has resolved completely. Exam/Review of Systems Vital Signs Vitals Vital Signs Date Temp Pulse Resp B/P (MAP) Pulse Ox O2 O2 Flow FiO2 Time Delivery Rate 08/26/18 98.6 93 17 143/60 100 Room Air 07:52 (87) Intake and Output 08/25/18 08/25/18 08/26/18 1515:00 23:00 07:00 IntakeIntake Total 820 ml 600 ml BalanceBalance 820 ml 600 ml Exam Free Text/Dictation R arm and hand, no edema, puncture site small hematoma at elbow, soft, 2+ radial pulse, hand warm with normal motor and sensory function. Results Result Diagram: 08/26/18 0448 08/26/18 0448 KI KNOWLES MD Aug 26, 2018 15:17
[2018-08-26 15:28] VITALS: BP 124/61; PULSE 88; RESP 15
--- NOTE | 2018-08-26 15:37 | PN ---
DATE: 08/26/2018 SUBJECTIVE: The patient is alert, feels better, looks comfortable and afebrile. Right upper extremi ty fevers improved. She underwent right upper extremity venogram and percutaneous mechanical and amna mical thrombectomy of right axillary and subclavian vents yesterday, her right upper extremity dressi ng clean, dry and intact. ANTIMICROBIALS: She is on doxycycline. PHYSICAL EXAMINATION: GENERAL: This is an obese, well-developed, middle-aged woman who is alert, in no distress. HEENT: Head atraumatic, normocephalic. NECK: Supple. CHEST: Rise symmetrical. Breath sounds clear. HEART: S1, S2. ABDOMEN: Soft, bowel tones present. ASSESSMENT: 1. Right upper extremity deep venous thrombosis with cellulitis, patient remains on the doxycycline. 2. Status post oxacillin-sensitive Staphylococcus aureus bacteremia secondary to endocarditis, patie nt completed 6 weeks of antibiotics. 3. Obesity. 4. Questionable history of drug abuse in the past. PLAN: The patient remains stable, status post thrombectomy yesterday. We will continue her on curre nt regimen. Change doxycycline to Bactrim. Keep right upper extremity elevated. Dictated By: BLANCA LR [employer] for MENDOZA DIAZ MD NI/NTS Conf#: [id number] DID#: [id number] CC: ESTRELLITA ANGEL MD;*EndCC*
[2018-08-26] MEDS: ACET/BUTAL/CAFF TAB PO PRN (16:12)
[2018-08-26 19:15] VITALS: BP 126/56; PULSE 108; RESP 20
[2018-08-26] MEDS ORDERED: APIXABAN 5 MG TABLET PO SCH (21:00)
[2018-08-26] MEDS: TRIMETHOPRIM/SULFAMETHOX (DS) TAB PO SCH (21:13)
[2018-08-27] MEDS: HYDROmorphONE 2 MG/ML SYG IV PRN ×8 (00:10→23:43)
[2018-08-27 03:03] VITALS: BP 114/53; PULSE 91; RESP 20
[2018-08-27] MEDS: PANTOPRAZOLE (EC) 40 MG TAB PO SCH (07:07)
[2018-08-27 07:53] VITALS: BP 131/68; PULSE 78; RESP 19
[2018-08-27] MEDS: OXYCODONE/ACETAMINOPHEN (5/325) TAB PO PRN ×2 (08:42→19:38)
[2018-08-27] MEDS: TRIMETHOPRIM/SULFAMETHOX (DS) TAB PO SCH ×2 (08:43→20:46)
[2018-08-27] MEDS: METOPROLOL 25 MG TAB PO SCH ×2 (08:43→20:47)
[2018-08-27] MEDS: APIXABAN 5 MG TABLET PO SCH ×2 (08:43→20:46)
--- NOTE | 2018-08-27 10:24 | CONS ---
Assessment/Plan Assessment/Plan Hospital Course (Demo Recall) #RUE DVT - related to prior PICC line #CHF #endocarditis -given the persistent RUE pain, pt is now s/p thrombectomy -pt now off heparin gtt and back on eliquis -will perform hyper coagulable workup as an out patient, especially given her family history of clotting -continue antibiotics for endocarditis. pt has completed 6 weeks of IV abx. now on Doxycycline Consultation Date/Type/Reason Admit Date/Time Aug 15, 2018 at 10:07 Initial Consult Date 08/17/18 Type of Consult hematology Reason for Consultation RUE DVT Requesting Provider: JHOANA CAMPA NP Date/Time of Note DATE: 08/27/18 TIME: 10:23 24 HR Interval Summary Free Text/Dictation pt states pain is slightly improved Exam/Review of Systems Exam Vitals Vital Signs Date Temp Pulse Resp B/P (MAP) Pulse Ox O2 O2 Flow FiO2 Time Delivery Rate 08/27/18 98.1 78 19 131/68 96 07:53 (89) 08/26/18 Room Air 15:28 Intake and Output 08/26/18 08/26/18 08/27/18 1515:00 23:00 07:00 IntakeIntake Total 960 ml 440 ml 390 ml BalanceBalance 960 ml 440 ml 390 ml Constitutional: alert, oriented Psych: no complaints, anxiety Head: normocephalic Eyes: nl conjunctiva ENMT: nl external ears & nose Neck: supple Respiratory: clear to auscultation Cardiovascular: regular rate and rhythm Gastrointestinal: soft Extremities: other (RUE with wrap in place) Results Result Diagram: 08/26/18 0448 08/26/18 0448 Results 24hrs Laboratory Tests Test 08/27/18 08:19 08/27/18 09:29 Lab Scanned Report REFERENCE LAB White Blood Count Pending Red Blood Count Pending Hemoglobin Pending Hematocrit Pending Mean Corpuscular Volume Pending Mean Corpuscular Hemoglobin Pending Mean Corpuscular Hemoglobin Concent Pending Red Cell Distribution Width Pending Platelet Count Pending Mean Platelet Volume Pending Medications Medication Current Medications Ondansetron HCl (Zofran Inj) 4 mg Q6H PRN IV NAUSEA/VOMITING Last administered on 08/25/18at 15:47; Admin Dose 4 MG; Start 08/15/18 at 14:00 Acetaminophen (Tylenol Tab) 650 mg Q6H PRN PO .PAIN 1-3 OR TEMP Last administered on 08/26/18 07:56; Admin Dose 650 MG; Start 08/15/18 at 14:00 Docusate Sodium (Colace) 100 mg Q12H PRN PO .CONSTIPATION; Start 08/15/18 at 14:00 Magnesium Hydroxide (Milk Of Mag) 30 ml DAILY PRN PO .CONSTIPATION; Start 08/15/18 at 14:00 Bisacodyl (Dulcolax Supp) 10 mg DAILY PRN [place] .CONSTIPATION; Start 08/15/18 at 14:00 Alprazolam (Xanax) 1 mg BID PRN PO ANXIETY Last administered on 08/26/18 21:34; Admin Dose 1 MG; Start 08/15/18 at 14:30 Pantoprazole (Protonix Tab) 40 mg DAILY@06 PO Last administered on 08/27/18 07:07; Admin Dose 40 MG; Start 08/18/18 at 06:00 Metoprolol Tartrate (Lopressor) 25 mg BID PO Last administered on 08/27/18at 08:43; Admin Dose 25 MG; Start 08/19/18 at 21:00 Alteplase, Recombinant (Cathflo (Activase)) 2 mg MAY REPEAT X1 PRN CATHETER IF CATHETER REMAINS OCCULUDED Last administered on 08/23/18 00:05; Admin Dose 2 MG; Start 08/22/18 at 20:00 Alteplase, Recombinant (Cathflo (Activase)) 2 mg MAY REPEAT X1 PRN CATHETER IF CATHETER REMAINS OCCULUDED Last administered on 08/24/18at 09:15; Admin Dose 2 MG; Start 08/24/18 at 07:00 Clotrimazole (Lotrimin Cr) 1 applic BID PRN TOP PRURITUS; Start 08/24/18 at 11:30 Oxycodone/ Acetaminophen (Percocet (5/ 325)) 2 tab Q6 PRN PO PAIN LEVEL 1-5 Last administered on 08/27/18 08:42; Admin Dose 2 TAB; Start 08/24/18 at 16:30 Hydromorphone HCl (Dilaudid) 2 mg Q3H PRN IV .SEVERE PAIN 7-10 Last administered on 08/27/18 07:05; Admin Dose 2 MG; Start 08/25/18 at 10:30 Apixaban (Eliquis) 5 mg BID PO Last administered on 08/27/18 08:43; Admin Dose 5 MG; Start 08/26/18 at 09:00 Trimethoprim/ Sulfamethoxazole (Bactrim (Ds)) 1 tab BID PO Last administered on 08/27/18 08:43; Admin Dose 1 TAB; Start 08/26/18 at 21:00 Acetaminophen/ Butalbital/ Caffeine (Fioricet) 1 tab Q4H PRN PO [place] Last administered on 08/26/18 16:12; Admin Dose 1 TAB; Start 08/26/18 at 15:30 IV Flush (NS 10 ml) 10 ml Q12 IV Last administered on 08/27/18 08:43; Admin Dose 10 ML; Start 08/27/18 at 09:00 IV Flush (NS 10 ml) 10 ml PRN IV Last administered on 08/27/18 07:43; Admin Dose 10 ML; Start 08/27/18 at 00:30 ZHANE OMER M.D. Aug 27, 2018 10:24
[2018-08-27] MEDS ORDERED: OXYC-438 PO (10:52)
[2018-08-27] MEDS ORDERED: SULF-182 PO (10:52)
[2018-08-27] MEDS ORDERED: ALPR1TAB7 PO (10:52)
[2018-08-27] MEDS ORDERED: METO-448 PO (10:52)
[2018-08-27] MEDS ORDERED: APIX5TAB PO (10:52)
[2018-08-27] MEDS ORDERED: SACC250C PO (10:52)
--- NOTE | 2018-08-27 10:57 | PDOCDIS ---
Discharge Instructions DIAGNOSIS Discharge Diagnosis 1. Extensive DVT of the right upper extremity. 2. Reported history of endocarditis 3. Morbid obesity. BMI more than 42 kg/m. 4. Anxiety disorder. 5. Normocytic anemia. CONDITION [id number] Patient Condition: [id number] Stable HOME CARE INSTRUCTIONS: [id number] Diet Instructions: [id number] Low Fat /Cholesterol ACTIVITY: [id number] Activity Restrictions: [id number] Slowly Increase Activity Rest between Activity Avoid heavy lifting FOLLOW UP/APPOINTMENTS Follow-up Plan Make an appointment and follow up with Dr. Navid Bonds (Vascular Surgeon) in 2 weeks Office Address [facility] [address] [place] [address] Office Make an appointment and follow up with Dr. Zahra Riggs (Outsole Splicer) in 2 weeks Office Address [address] [place] [address] Office Make an appointment and follow up with Dr. Ross Decker (Infectious Disease Specialist) in 2 weeks Office Address [address] [place] [address] Office Make and appointment and follow up with Dr. Navid Drake (Space Scheduler) in 2 weeks Office Address [address] [place] [address] Office Follow up with your primary care doctor in one week JOHN WILL NP Aug 27, 2018 10:57
--- NOTE | 2018-08-27 12:55 | CONS ---
Assessment/Plan Assessment/Plan Hospital Course (Demo Recall) IMPRESSION: 1. History of recently diagnosed endocarditis, assess for ongoing infection.- Bld cx remain NTD and TTE was without sig valvular findings this admit 2. Tachycardia, borderline consistent with sinus tachycardia-ongoing mild 3. Hypertension, labile may be related to pain, currently improved, off of antihypertensives recently today. 4. Deep venous thrombosis of the right extremity, likely secondary to PICC line that was in place.-ongoing pain. Now postop s/p venogramn with thrombolysis with improving symptoms overall 5. Anemia. 6. Psychiatric disorder. Recc: -Now on med-surg -serial ecg's -Now s/p full course of abx, continue to f/u cx data closely -now resumed on eliquis, follow exam closely with improving pain -Continue low dose BB with reasonable HR/BP overall -pain control -ok for d/c planning from cardiac standpoint Consultation Date/Type/Reason Admit Date/Time Aug 15, 2018 at 10:07 Initial Consult Date 08/17/18 Type of Consult Cardiology Reason for Consultation endocarditis Requesting Provider: JHOANA CAMPA NP Date/Time of Note DATE: 08/27/18 TIME: 12:53 Exam/Review of Systems Vital Signs Vitals Vital Signs Date Temp Pulse Resp B/P (MAP) Pulse Ox O2 O2 Flow FiO2 Time Delivery Rate 08/27/18 98.1 78 19 131/68 96 07:53 (89) 08/26/18 Room Air 15:28 Intake and Output 08/26/18 08/26/18 08/27/18 1515:00 23:00 07:00 IntakeIntake Total 960 ml 440 ml 390 ml BalanceBalance 960 ml 440 ml 390 ml Exam Exam Review of Systems: CONSTITUTIONAL: No fevers, chills. PULMONARY: No sob CARDIOVASCULAR: No chest pain/palpitations GASTROINTESTINAL: No nausea/vomiting. GENITOURINARY: No hematuria/dysuria. MUSCULOSKELETAL:mild pain in RUE PSYCHIATRIC: The patient denies depression. NEUROLOGIC: No weakness Constitutional: alert Psych: no complaints Head: normocephalic ENMT: mucosa pink and moist Neck: supple, jvd (9 cm water) Respiratory: clear to auscultation Cardiovascular: regular rate and rhythm Gastrointestinal: soft, non-tender Musculoskeletal: muscle tone (normal) Extremities: edema (RUE) Neurological: other (no focal deficits) Labs Result Diagram: 08/27/18 0908/27/18 0929 Results 24hrs Laboratory Tests Test 08/27/18 08:19 08/27/18 09:29 Lab Scanned Report REFERENCE LAB White Blood Count 5.6 Red Blood Count 3.31 L Hemoglobin 9.1 L Hematocrit 30.3 L Mean Corpuscular Volume 91.5 Mean Corpuscular Hemoglobin 27.5 L Mean Corpuscular Hemoglobin Concent 30.0 L Red Cell Distribution Width 14.8 H Platelet Count 191 # Mean Platelet Volume 10.4 Immature Granulocytes % 0.500 H Neutrophils % 50.0 Lymphocytes % 37.2 Monocytes % 9.6 Eosinophils % 2.0 Basophils % 0.7 Nucleated Red Blood Cells % 0.0 Immature Granulocytes # 0.030 Neutrophils # 2.8 Lymphocytes # 2.1 Monocytes # 0.5 Eosinophils # 0.1 Basophils # 0.0 Nucleated Red Blood Cells # 0.0 Sodium Level 138 Potassium Level 4.5 Chloride Level 104 Carbon Dioxide Level 28 Anion Gap 6 Blood Urea Nitrogen 15 Creatinine 0.59 Est Glomerular Filtrat Rate mL/min > 60 Glucose Level 88 Calcium Level 9.1 Magnesium Level 1.7 Medications Medications Current Medications Ondansetron HCl (Zofran Inj) 4 mg Q6H PRN IV NAUSEA/VOMITING Last administered on 08/25/18at 15:47; Admin Dose 4 MG; Start 08/15/18 at 14:00 Acetaminophen (Tylenol Tab) 650 mg Q6H PRN PO .PAIN 1-3 OR TEMP Last administ ered on 08/26/18at 07:56; Admin Dose 650 MG; Start 08/15/18 at 14:00 Docusate Sodium (Colace) 100 mg Q12H PRN PO .CONSTIPATION; Start 08/15/18 at 14:00 Magnesium Hydroxide (Milk Of Mag) 30 ml DAILY PRN PO .CONSTIPATION; Start 08/15/18 at 14:00 Bisacodyl (Dulcolax Supp) 10 mg DAILY PRN [place] .CONSTIPATION; Start 08/15/18 at 14:00 Alprazolam (Xanax) 1 mg BID PRN PO ANXIETY Last administered on 08/26/18at 21:34; Admin Dose 1 MG; Start 08/15/18 at 14:30 Pantoprazole (Protonix Tab) 40 mg DAILY@06 PO Last administered on 08/27/18 07:07; Admin Dose 40 MG; Start 08/18/18 at 06:00 Metoprolol Tartrate (Lopressor) 25 mg BID PO Last administered on 08/27/18 08:43; Admin Dose 25 MG; Start 08/19/18 at 21:00 Alteplase, Recombinant (Cathflo (Activase)) 2 mg MAY REPEAT X1 PRN CATHETER IF CATHETER REMAINS OCCULUDED Last administered on 08/23/18 00:05; Admin Dose 2 MG; Start 08/22/18 at 20:00 Alteplase, Recombinant (Cathflo (Activase)) 2 mg MAY REPEAT X1 PRN CATHETER IF CATHETER REMAINS OCCULUDED Last administered on 08/24/18 09:15; Admin Dose 2 MG; Start 08/24/18 at 07:00 Clotrimazole (Lotrimin Cr) 1 applic BID PRN TOP PRURITUS; Start 08/24/18 at 11:30 Oxycodone/ Acetaminophen (Percocet (5/ 325)) 2 tab Q6 PRN PO PAIN LEVEL 1-5 Last administered on 08/27/18 08:42; Admin Dose 2 TAB; Start 08/24/18 at 16:30 Hydromorphone HCl (Dilaudid) 2 mg Q3H PRN IV .SEVERE PAIN 7-10 Last administered on 08/27/18 10:54; Admin Dose 2 MG; Start 08/25/18 at 10:30 Apixaban (Eliquis) 5 mg BID PO Last administered on 08/27/18 08:43; Admin Dose 5 MG; Start 08/26/18 at 09:00 Trimethoprim/ Sulfamethoxazole (Bactrim (Ds)) 1 tab BID PO Last administered on 08/27/18 08:43; Admin Dose 1 TAB; Start 08/26/18 at 21:00 Acetaminophen/ Butalbital/ Caffeine (Fioricet) 1 tab Q4H PRN PO [place] Last administered on 08/26/18 16:12; Admin Dose 1 TAB; Start 08/26/18 at 15:30 IV Flush (NS 10 ml) 10 ml Q12 IV Last administered on 08/27/18 08:43; Admin Dose 10 ML; Start 08/27/18 at 09:00 IV Flush (NS 10 ml) 10 ml PRN IV Last administered on 08/27/18at 07:43; Admin Dose 10 ML; Start 08/27/18 at 00:30 KI PEACE Aug 27, 2018 12:55
--- NOTE | 2018-08-27 13:33 | CONS ---
Assessment/Plan Assessment/Plan Hospital Course (Demo Recall) SUBJECTIVE: The patient is alert, feels better ANTIMICROBIALS: She is on doxycycline. PHYSICAL EXAMINATION: GENERAL: This is an obese, well-developed, middle-aged woman who is alert, in no distress. HEENT: Head atraumatic, normocephalic. NECK: Supple. CHEST: Rise symmetrical. Breath sounds clear. HEART: S1, S2. ABDOMEN: Soft, bowel tones present. ASSESSMENT: 1. Right upper extremity deep venous thrombosis with cellulitis 2. Status post oxacillin-sensitive Staphylococcus aureus bacteremia secondary to endocarditis, patient completed 6 weeks of antibiotics. 3. Obesity. 4. Questionable history of drug abuse in the past. PLAN: The patient remains stable, status post thrombectomy. Ok dc on oral Bactrim for 7 more days Consultation Date/Type/Reason Admit Date/Time Aug 15, 2018 at 10:07 Initial Consult Date Type of Consult id Requesting Provider: JHOANA CAMPA NP Date/Time of Note DATE: 08/27/18 TIME: 13:31 Exam/Review of Systems Exam Vitals Vital Signs Date Temp Pulse Resp B/P (MAP) Pulse Ox O2 O2 Flow FiO2 Time Delivery Rate 08/27/18 98.1 78 19 131/68 96 07:53 (89) 08/26/18 Room Air 15:28 Intake and Output 08/26/18 08/26/18 08/27/18 1414:59 22:59 06:59 IntakeIntake Total 960 ml 440 ml 390 ml BalanceBalance 960 ml 440 ml 390 ml Results Result Diagram: 08/27/18 0929 08/27/18 0929 Results 24hrs Laboratory Tests Test 08/27/18 08:19 08/27/18 09:29 Lab Scanned Report REFERENCE LAB White Blood Count 5.6 Red Blood Count 3.31 L Hemoglobin 9.1 L Hematocrit 30.3 L Mean Corpuscular Volume 91.5 Mean Corpuscular Hemoglobin 27.5 L Mean Corpuscular Hemoglobin Concent 30.0 L Red Cell Distribution Width 14.8 H Platelet Count 191 # Mean Platelet Volume 10.4 Immature Granulocytes % 0.500 H Neutrophils % 50.0 Lymphocytes % 37.2 Monocytes % 9.6 Eosinophils % 2.0 Basophils % 0.7 Nucleated Red Blood Cells % 0.0 Immature Granulocytes # 0.030 Neutrophils # 2.8 Lymphocytes # 2.1 Monocytes # 0.5 Eosinophils # 0.1 Basophils # 0.0 Nucleated Red Blood Cells # 0.0 Sodium Level 138 Potassium Level 4.5 Chloride Level 104 Carbon Dioxide Level 28 Anion Gap 6 Blood Urea Nitrogen 15 Creatinine 0.59 Est Glomerular Filtrat Rate mL/min > 60 Glucose Level 88 Calcium Level 9.1 Magnesium Level 1.7 Medications Medication Current Medications Ondansetron HCl (Zofran Inj) 4 mg Q6H PRN IV NAUSEA/VOMITING Last administered on 08/25/18at 15:47; Admin Dose 4 MG; Start 08/15/18 at 14:00 Acetaminophen (Tylenol Tab) 650 mg Q6H PRN PO .PAIN 1-3 OR TEMP Last admin istered on 08/26/18 07:56; Admin Dose 650 MG; Start 08/15/18 at 14:00 Docusate Sodium (Colace) 100 mg Q12H PRN PO .CONSTIPATION; Start 08/15/18 at 14:00 Magnesium Hydroxide (Milk Of Mag) 30 ml DAILY PRN PO .CONSTIPATION; Start 08/15/18 at 14:00 Bisacodyl (Dulcolax Supp) 10 mg DAILY PRN [place] .CONSTIPATION; Start 08/15/18 at 14:00 Alprazolam (Xanax) 1 mg BID PRN PO ANXIETY Last administered on 08/26/18at 21:34; Admin Dose 1 MG; Start 08/15/18 at 14:30 Pantoprazole (Protonix Tab) 40 mg DAILY@06 PO Last administered on 08/27/18at 07:07; Admin Dose 40 MG; Start 08/18/18 at 06:00 Metoprolol Tartrate (Lopressor) 25 mg BID PO Last administered on 08/27/18 08:43; Admin Dose 25 MG; Start 08/19/18 at 21:00 Alteplase, Recombinant (Cathflo (Activase)) 2 mg MAY REPEAT X1 PRN CATHETER IF CATHETER REMAINS OCCULUDED Last administered on 08/23/18at 00:05; Admin Dose 2 MG; Start 08/22/18 at 20:00 Alteplase, Recombinant (Cathflo (Activase)) 2 mg MAY REPEAT X1 PRN CATHETER IF CATHETER REMAINS OCCULUDED Last administered on 08/24/18at 09:15; Admin Dose 2 MG; Start 08/24/18 at 07:00 Clotrimazole (Lotrimin Cr) 1 applic BID PRN TOP PRURITUS; Start 08/24/18 at 11:30 Oxycodone/ Acetaminophen (Percocet (5/ 325)) 2 tab Q6 PRN PO PAIN LEVEL 1-5 Last administered on 08/27/18 08:42; Admin Dose 2 TAB; Start 08/24/18 at 16:30 Hydromorphone HCl (Dilaudid) 2 mg Q3H PRN IV .SEVERE PAIN 7-10 Last administered on 08/27/18 10:54; Admin Dose 2 MG; Start 08/25/18 at 10:30 Apixaban (Eliquis) 5 mg BID PO Last administered on 08/27/18 08:43; Admin Dose 5 MG; Start 08/26/18 at 09:00 Trimethoprim/ Sulfamethoxazole (Bactrim (Ds)) 1 tab BID PO Last administered on 08/27/18 08:43; Admin Dose 1 TAB; Start 08/26/18 at 21:00 Acetaminophen/ Butalbital/ Caffeine (Fioricet) 1 tab Q4H PRN PO [place] Last administered on 08/26/18 16:12; Admin Dose 1 TAB; Start 08/26/18 at 15:30 IV Flush (NS 10 ml) 10 ml Q12 IV Last administered on 08/27/18 08:43; Admin Dose 10 ML; Start 08/27/18 at 09:00 IV Flush (NS 10 ml) 10 ml PRN IV Last administered on 08/27/18 07:43; Admin Dose 10 ML; Start 08/27/18 at 00:30 BLANCA LR NP Aug 27, 2018 13:33
--- NOTE | 2018-08-27 15:54 | PN ---
Date/Time of Note Date/Time of Note DATE: 08/27/18 TIME: 15:53 Assessment/Plan VTE Prophylaxis Risk score (from Nsg)>0 risk: 6 SCD applied (from Nsg): Yes Pharmacological prophylaxis: apixaban Lines/Catheters IV Catheter Type (from Nrsg): PICC Line Central line still needed: Yes Urinary Cath still in place: No Assessment/Plan Hospital Course 1. Extensive DVT of the right upper extremity. s/p Right arm venogram and percutaneous mechanical and chemical thrombectomy of right axillary and subclavian veins August 25, 2018 continued on eliquis Hematology following. Vascular surgeon following 2. Reported history of endocarditis Cardiology following continue ID recommendations 3. Morbid obesity. BMI more than 42 kg/m. weight reduction was advised 4. Anxiety disorder. Continue PRN anxiolytics. 5. Normocytic anemia. Monitor H&H Disposition and plan. on eliquis. continue pain management. reports difficulty with walking, PT eval. plan for d/c in AM if stable Discussed POC with Dr. Ramirez Result Diagram: 08/27/18 0929 08/27/18 0929 Results 24hrs Laboratory Tests Test 08/27/18 08:19 08/27/18 09:29 Lab Scanned Report REFERENCE LAB White Blood Count 5.6 Red Blood Count 3.31 L Hemoglobin 9.1 L Hematocrit 30.3 L Mean Corpuscular Volume 91.5 Mean Corpuscular Hemoglobin 27.5 L Mean Corpuscular Hemoglobin Concent 30.0 L Red Cell Distribution Width 14.8 H Platelet Count 191 # Mean Platelet Volume 10.4 Immature Granulocytes % 0.500 H Neutrophils % 50.0 Lymphocytes % 37.2 Monocytes % 9.6 Eosinophils % 2.0 Basophils % 0.7 Nucleated Red Blood Cells % 0.0 Immature Granulocytes # 0.030 Neutrophils # 2.8 Lymphocytes # 2.1 Monocytes # 0.5 Eosinophils # 0.1 Basophils # 0.0 Nucleated Red Blood Cells # 0.0 Sodium Level 138 Potassium Level 4.5 Chloride Level 104 Carbon Dioxide Level 28 Anion Gap 6 Blood Urea Nitrogen 15 Creatinine 0.59 Est Glomerular Filtrat Rate mL/min > 60 Glucose Level 88 Calcium Level 9.1 Magnesium Level 1.7 Subjective 24 Hr Interval Summary Free Text/Dictation noted with anxiety. still has some pain on RUE Exam/Review of Systems Exam Vitals Vital Signs Date Temp Pulse Resp B/P (MAP) Pulse Ox O2 O2 Flow FiO2 Time Delivery Rate 08/27/18 98.1 78 19 131/68 96 07:53 (89) 08/26/18 Room Air 15:28 Intake and Output 08/26/18 08/26/18 08/27/18 1515:00 23:00 07:00 IntakeIntake Total 960 ml 440 ml 390 ml BalanceBalance 960 ml 440 ml 390 ml Exam Constitutional: alert, oriented Psych: anxiety Head: normocephalic Respiratory: clear to auscultation, normal air movement Cardiovascular: other (Regular rate) Gastrointestinal: soft Extremities: edema (Right upper extremity) less Neurological: [employer] II-XII intact, nl mental status, nl speech Results Results 24hrs Laboratory Tests Test 08/27/18 08:19 08/27/18 09:29 Lab Scanned Report REFERENCE LAB White Blood Count 5.6 Red Blood Count 3.31 L Hemoglobin 9.1 L Hematocrit 30.3 L Mean Corpuscular Volume 91.5 Mean Corpuscular Hemoglobin 27.5 L Mean Corpuscular Hemoglobin Concent 30.0 L Red Cell Distribution Width 14.8 H Platelet Count 191 # Mean Platelet Volume 10.4 Immature Granulocytes % 0.500 H Neutrophils % 50.0 Lymphocytes % 37.2 Monocytes % 9.6 Eosinophils % 2.0 Basophils % 0.7 Nucleated Red Blood Cells % 0.0 Immature Granulocytes # 0.030 Neutrophils # 2.8 Lymphocytes # 2.1 Monocytes # 0.5 Eosinophils # 0.1 Basophils # 0.0 Nucleated Red Blood Cells # 0.0 Sodium Level 138 Potassium Level 4.5 Chloride Level 104 Carbon Dioxide Level 28 Anion Gap 6 Blood Urea Nitrogen 15 Creatinine 0.59 Est Glomerular Filtrat Rate mL/min > 60 Glucose Level 88 Calcium Level 9.1 Magnesium Level 1.7 Medications Medication Current Medications Ondansetron HCl (Zofran Inj) 4 mg Q6H PRN IV NAUSEA/VOMITING Last administered on 08/25/18at 15:47; Admin Dose 4 MG; Start 08/15/18 at 14:00 Acetaminophen (Tylenol Tab) 650 mg Q6H PRN PO .PAIN 1-3 OR TEMP Last administered on 08/26/18at 07:56; Admin Dose 650 MG; Start 08/15/18 at 14:00 Docusate Sodium (Colace) 100 mg Q12H PRN PO .CONSTIPATION; Start 08/15/18 at 14:00 Magnesium Hydroxide (Milk Of Mag) 30 ml DAILY PRN PO .CONSTIPATION; Start 08/15/18 at 14:00 Bisacodyl (Dulcolax Supp) 10 mg DAILY PRN [place] .CONSTIPATION; Start 08/15/18 at 14:00 Alprazolam (Xanax) 1 mg BID PRN PO ANXIETY Last administered on 08/26/18at 21:34; Admin Dose 1 MG; Start 08/15/18 at 14:30 Pantoprazole (Protonix Tab) 40 mg DAILY@06 PO Last administered on 08/27/18 07:07; Admin Dose 40 MG; Start 08/18/18 at 06:00 Metoprolol Tartrate (Lopressor) 25 mg BID PO Last administered on 08/27/18 08:43; Admin Dose 25 MG; Start 08/19/18 at 21:00 Alteplase, Recombinant (Cathflo (Activase)) 2 mg MAY REPEAT X1 PRN CATHETER IF CATHETER REMAINS OCCULUDED Last administered on 08/23/18at 00:05; Admin Dose 2 MG; Start 08/22/18 at 20:00 Alteplase, Recombinant (Cathflo (Activase)) 2 mg MAY REPEAT X1 PRN CATHETER IF CATHETER REMAINS OCCULUDED Last administered on 08/24/18at 09:15; Admin Dose 2 MG; Start 08/24/18 at 07:00 Clotrimazole (Lotrimin Cr) 1 applic BID PRN TOP PRURITUS; Start 08/24/18 at 11:30 Oxycodone/ Acetaminophen (Percocet (5/ 325)) 2 tab Q6 PRN PO PAIN LEVEL 1-5 Last administered on 08/27/18 08:42; Admin Dose 2 TAB; Start 08/24/18 at 16:30 Hydromorphone HCl (Dilaudid) 2 mg Q3H PRN IV .SEVERE PAIN 7-10 Last admin istered on 08/27/18at 14:21; Admin Dose 2 MG; Start 08/25/18 at 10:30 Apixaban (Eliquis) 5 mg BID PO Last administered on 08/27/18 08:43; Admin Dose 5 MG; Start 08/26/18 at 09:00 Trimethoprim/ Sulfamethoxazole (Bactrim (Ds)) 1 tab BID PO Last administered on 08/27/18 08:43; Admin Dose 1 TAB; Start 08/26/18 at 21:00 Acetaminophen/ Butalbital/ Caffeine (Fioricet) 1 tab Q4H PRN PO [place] Last adm inistered on 08/26/18 16:12; Admin Dose 1 TAB; Start 08/26/18 at 15:30 IV Flush (NS 10 ml) 10 ml Q12 IV Last administered on 08/27/18 08:43; Admin Dose 10 ML; Start 08/27/18 at 09:00 IV Flush (NS 10 ml) 10 ml PRN IV Last administered on 08/27/18 07:43; Admin Dose 10 ML; Start 08/27/18 at 00:30 JOHN WILL [employer] Aug 27, 2018 15:54
[2018-08-27 21:05] VITALS: BP 141/80; PULSE 77; RESP 17
[2018-08-27] MEDS: ACET/BUTAL/CAFF TAB PO PRN (22:16)
[2018-08-27] MEDS: ALPRAZOLAM 1 MG TAB PO PRN (22:16)
[2018-08-28] MEDS: HYDROmorphONE 2 MG/ML SYG IV PRN ×4 (02:42→14:17)
[2018-08-28 02:45] VITALS: BP 138/78; PULSE 75; RESP 20
[2018-08-28] MEDS: OXYCODONE/ACETAMINOPHEN (5/325) TAB PO PRN (06:39)
[2018-08-28] MEDS: PANTOPRAZOLE (EC) 40 MG TAB PO SCH (06:39)
[2018-08-28 07:09] VITALS: BP 113/51; PULSE 83; RESP 18
[2018-08-28] MEDS: TRIMETHOPRIM/SULFAMETHOX (DS) TAB PO SCH (09:40)
[2018-08-28] MEDS: APIXABAN 5 MG TABLET PO SCH (09:40)
[2018-08-28] MEDS: METOPROLOL 25 MG TAB PO SCH (09:40)
[2018-08-28] MEDS: ALPRAZOLAM 1 MG TAB PO PRN (09:44)
--- NOTE | 2018-08-28 12:20 | CONS ---
Consult Date/Type/Reason Admit Date/Time Aug 15, 2018 at 10:07 Initial Consult Date Requesting Provider: JHOANA CAMPA NP Date/Time of Note DATE: 08/28/18 TIME: 12:18 Subjective Pt much better - ambulatory now - working with PT on stairs - con;t to follow - access with good function. ROS: No fever, no chills, no nausea, no vomiting, no diarrhea/constipation No recent weight changes No chest pain, no PND, no orthopnea - improved SOB No dizziness, blurred vision No thirst, no heat or cold intolerance Objective Vitals Vital Signs Date Temp Pulse Resp B/P (MAP) Pulse Ox O2 O2 Flow FiO2 Time Delivery Rate 08/28/18 98.5 83 18 113/51 99 Room Air 07:09 (71) Intake and Output 08/27/18 08/27/18 08/28/18 1515:00 23:00 07:00 IntakeIntake Total 960 ml 1200 ml BalanceBalance 960 ml 1200 ml Exam General: WN/WD/NAD, AOx 3 HEENT: Unicetric/atraumatic/EOMI (follows commands) NECK: JVD elevated, no thyromegaly Lymph: no lymphadenopathy HEART: regular with no S3, II/ systolic murmur at apex, PMI L LUNGS: Coarse sounds ABD: soft, NT, ND, +BS : Intact Neuro: non focal SKIN: chronic changes EXT: trace edema Results/Medications Result Diagram: 08/27/1892808/27/18 0929 Home Meds Active Scripts Alprazolam* (Alprazolam*) 1 Mg Tablet, 1 MG PO BID PRN for ANXIETY, #20 TAB Prov:JOHN WILL NP 08/27/18 Saccharomyces Boulardii* (Florastor*) 250 Mg Cap, 500 MG PO BID, #14 CAP Prov:JOHN WILL NP 08/27/18 Metoprolol Tartrate* (Lopressor*) 25 Mg Tab, 25 MG PO BID, #60 TAB Prov:JOHN WILL NP 08/27/18 Sulfamethoxazole/Trimethoprim (Sulfamethoxazole-Tmp Ds Tablet) 1 Each Tablet, 1 TAB PO BID, #14 TAB Prov:JOHN WILL NP 08/27/18 Oxycodone HCl/Acetaminophen (Oxycodone-Acetaminophen 5-325) 1 Each Tablet, 2 TAB PO Q6 PRN for PAIN LEVEL 1-5, #30 TAB Prov:JOHN WILL [employer]CA[employer] WORKER 08/27/18 Apixaban* (Eliquis*) 5 Mg Tablet, 5 MG PO BID, #100 TAB Prov:JOHN WILL [employer] WORK[employer] 08/27/18 Discontinued Reported Medications Oxycodone Hcl* (IR) (Oxycodone Hcl*) 5 Mg Capsule, 10 MG PO TID PRN for PAIN, CAP 08/15/18 Alprazolam* (Xanax*) 1 Mg Tab, 1 MG PO BID PRN for ANXIETY, TAB 08/15/18 Medications Current Medications Ondansetron HCl (Zofran Inj) 4 mg Q6H PRN IV NAUSEA/VOMITING Last administered on 08/25/18at 15:47; Admin Dose 4 MG; Start 08/15/18 at 14:00 Acetaminophen (Tylenol Tab) 650 mg Q6H PRN PO .PAIN 1-3 OR TEMP Last administered on 08/26/18at 07:56; Admin Dose 650 MG; Start 08/15/18 at 14:00 Docusate Sodium (Colace) 100 mg Q12H PRN PO .CONSTIPATION; Start 08/15/18 at 14:00 Magnesium Hydroxide (Milk Of Mag) 30 ml DAILY PRN PO .CONSTIPATION; Start 08/15/18 at 14:00 Bisacodyl (Dulcolax Supp) 10 mg DAILY PRN [place] .CONSTIPATION; Start 08/15/18 at 14:00 Alprazolam (Xanax) 1 mg BID PRN PO ANXIETY Last administered on 08/28/18at 09:44; Admin Dose 1 MG; Start 08/15/18 at 14:30 Pantoprazole (Protonix Tab) 40 mg DAILY@06 PO Last administered on 08/28/18at 06:39; Admin Dose 40 MG; Start 08/18/18 at 06:00 Metoprolol Tartrate (Lopressor) 25 mg BID PO Last administered on 08/28/18at 09:40; Admin Dose 25 MG; Start 08/19/18 at 21:00 Alteplase, Recombinant (Cathflo (Activase)) 2 mg MAY REPEAT X1 PRN CATHETER IF CATHETER REMAINS OCCULUDED Last administered on 08/23/18at 00:05; Admin Dose 2 MG; Start 08/22/18 at 20:00 Alteplase, Recombinant (Cathflo (Activase)) 2 mg MAY REPEAT X1 PRN CATHETER IF CATHETER REMAINS OCCULUDED Last administered on 08/24/18 09:15; Admin Dose 2 MG; Start 08/24/18 at 07:00 Clotrimazole (Lotrimin Cr) 1 applic BID PRN TOP PRURITUS; Start 08/24/18 at 11:30 Oxycodone/ Acetaminophen (Percocet (5/ 325)) 2 tab Q6 PRN PO PAIN LEVEL 1-5 Last administered on 08/28/18 06:39; Admin Dose 2 TAB; Start 08/24/18 at 16:30 Hydromorphone HCl (Dilaudid) 2 mg Q3H PRN IV .SEVERE PAIN 7-10 Last administered on 08/28/18 11:18; Admin Dose 2 MG; Start 08/25/18 at 10:30 Apixaban (Eliquis) 5 mg BID PO Last administered on 08/28/18 09:40; Admin Dose 5 MG; Start 08/26/18 at 09:00 Trimethoprim/ Sulfamethoxazole (Bactrim (Ds)) 1 tab BID PO Last administered on 08/28/18 09:40; Admin Dose 1 TAB; Start 08/26/18 at 21:00 Acetaminophen/ Butalbital/ Caffeine (Fioricet) 1 tab Q4H PRN PO [place] Last administered on 08/27/18 22:16; Admin Dose 1 TAB; Start 08/26/18 at 15:30 IV Flush (NS 10 ml) 10 ml Q12 IV Last administered on 08/28/18 09:41; Admin Dose 10 ML; Start 08/27/18 at 09:00 IV Flush (NS 10 ml) 10 ml PRN IV Last administered on 08/27/18 23:43; Admin Dose 10 ML; Start 08/27/18 at 00:30 Assessment/Plan Hospital Course (Demo Recall) 1. History of recently diagnosed endocarditis, assess for ongoing infection - pt had TTE done - no clear vegetaion noted - con't anti-Bx. Better now - access in place. 2. Tachycardia, borderline consistent with sinus tachycardia. HR better now. Improved HR now. Traeted. 3. Hypertension, labile may be related to pain, currently improved, off of antihypertensives recently today. Con't to follow - better overall. 4. Deep venous thrombosis of the right extremity, likely secondary to PICC line that was in place. On Rx now. Now with PICC malfxn - no replacemed. 5. Anemia- H/H stable - no bleeding now, Will follow clinically. On a nti-coag now. 6. Psychiatric disorder- defer to PMD. IVA MURRAY MD Aug 28, 2018 12:20
--- NOTE | 2018-09-02 11:40 | DS ---
Date/Time of Note Date/Time of Note DATE: 09/02/18 TIME: 11:32 Discharge Summary Admission/Discharge Info Admit Date/Time Aug 15, 2018 at 10:07 Discharge Date/Time Aug 28, 2018 at 15:55 Discharge Diagnosis 1. Extensive DVT of the right upper extremity. 2. Reported history of endocarditis 3. Morbid obesity. BMI more than 42 kg/m. 4. Anxiety disorder. 5. Normocytic anemia. 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 She reports that roughly 5 to 6 days ago she started to experience pain on right upper extremity where her PICC line was and went to [facility] again to have the plan removed and replaced and put a new PICC line on the left arm. She does report good compliance with her medication. She did state that her right arm started to increase with swelling which she states extended to her breast on the right. She was brought back to [facility] but due to insurance issue was transferred to [facility] for further evaluation and treatment. Of note she did have duplex study done on right upper extremity roughly 2 days prior to this admission at [place] and there was found to be a DVT. Patient was seen by vascular surgeon and beater and pulper feeder. She was placed on appropriate anticoagulant medication. He did receive a right arm venogram with percutaneous mechanical and chemical thrombectomy of right axillary and subclavian veins on August 25, 2018. She did have good response to this and we did optimize her with analgesics. We did get ID consult as well as orthopaedic physician assistant to follow her for her history of endocarditis. She was optimized with appropriate antibiotics. During the course of stay she did improve. We did get her physical therapy to help her with ambulation and provided her with case management assistance for possible DME at home. She was advised for weight reduction for her morbid obesity. We also provided her with anxiolytics for her anxiety. The plan of care was discussed with the patient and family and they verbalized understanding. On the day of discharge patient was in stable condition Discussed POC with Dr. Ramirez Smithwick Meds Active Scripts Alprazolam* (Alprazolam*) 1 Mg Tablet, 1 MG PO BID PRN for ANXIETY, #20 TAB Prov:JOHN WILL MARKET BASKET MAKER 08/27/18 Saccharomyces Boulardii* (Florastor*) 250 Mg Cap, 500 MG PO BID, #14 CAP Prov:JOHN WILL MARKET BASKET MAKER 08/27/18 Metoprolol Tartrate* (Lopressor*) 25 Mg Tab, 25 MG PO BID, #60 TAB Prov:JOHN WILL MARKET BASKET MAKER 08/27/18 Sulfamethoxazole/Trimethoprim (Sulfamethoxazole-Tmp Ds Tablet) 1 Each Tablet, 1 TAB PO BID, #14 TAB Prov:JOHN WILL MARKET BASKET MAKER 08/27/18 Oxycodone HCl/Acetaminophen (Oxycodone-Acetaminophen 5-325) 1 Each Tablet, 2 TAB PO Q6 PRN for PAIN LEVEL 1-5, #30 TAB Prov:SARAINIAJOHN Morales KATE 08/27/18 Apixaban* (Eliquis*) 5 Mg Tablet, 5 MG PO BID, #100 TAB Prov:JOHN WILL MARKET BASKET MAKER 08/27/18 Discontinued Reported Medications Oxycodone Hcl* (IR) (Oxycodone Hcl*) 5 Mg Capsule, 10 MG PO TID PRN for PAIN, CAP 08/15/18 Alprazolam* (Xanax*) 1 Mg Tab, 1 MG PO BID PRN for ANXIETY, TAB 08/15/18 Follow-up Plan Make an appointment and follow up with Dr. Navid Bonds (Vascular Surgeon) in 2 weeks Office Address [facility] [address] [place] [address] Office Make an appointment and follow up with Dr. Zahra Riggs ([place]) in 2 weeks Office Address [address] [place] [address] Office Make an appointment and follow up with Dr. Ross Decker (Infectious Disease Specialist) in 2 weeks Office Address [address] [place] [address] Office Make and appointment and follow up with Dr. Navid Drake (Systems Librarian) in 2 weeks Office Address [address] [place] [address] Office Follow up with your primary care doctor in one week Primary Care Provider Not On Staff Doctor Time spent on discharge: > 30 minutes JOHN WILL NP Sep 02, 2018 11:40
== END 2018-08-28 15:55 | disposition home or self-care (01) | DRG 271 ==
LOC: E/R 07:19 → TEL 10:07 → MS1 08-18 12:20
PROVIDERS: ADMIT Internal Medicine; ATTEND Internal Medicine
PROC: 05C53ZZ Extirpation of Matter from Right Subclavian Vein, Percutaneous Approach (ICD-10-PCS; 2018-08-22)
PROC: 02HV33Z Insertion of Infusion Device into Superior Vena Cava, Percutaneous Approach (ICD-10-PCS; 2018-08-24)
PROC: 05CB3ZZ Extirpation of Matter from Right Basilic Vein, Percutaneous Approach (ICD-10-PCS; 2018-08-25)
PROC: 3E03317 Introduction of Other Thrombolytic into Peripheral Vein, Percutaneous Approach (ICD-10-PCS; 2018-08-25)
PROC: 05C73ZZ Extirpation of Matter from Right Axillary Vein, Percutaneous Approach (ICD-10-PCS; principal; 2018-08-25 11:30)
PROC: 05C93ZZ Extirpation of Matter from Right Brachial Vein, Percutaneous Approach (ICD-10-PCS; 2018-08-25 11:30)
DX: T82.868A Thrombosis due to vascular prosthetic devices, implants and grafts, initial encounter (principal); I82.A11 Acute embolism and thrombosis of right axillary vein; I82.B11 Acute embolism and thrombosis of right subclavian vein; I38 Endocarditis, valve unspecified; Z68.41 Body mass index [BMI] 40.0-44.9, adult; I82.621 Acute embolism and thrombosis of deep veins of right upper extremity; I82.611 Acute embolism and thrombosis of superficial veins of right upper extremity; L03.113 Cellulitis of right upper limb; E66.01 Morbid (severe) obesity due to excess calories; F41.9 Anxiety disorder, unspecified; D64.9 Anemia, unspecified; M19.90 Unspecified osteoarthritis, unspecified site; I10 Essential (primary) hypertension; Z86.711 Personal history of pulmonary embolism; F99 Mental disorder, not otherwise specified
CPT/HCPCS: 36569; 37211; 71045; 73590; 75820; 76641; 80048; 80053; 80061; 80307; 82728; 83036; 83540; 83735; 83890; 84100; 84436; 84443; 84479; 84484; 84703; 85025; 85300; 85302; 85305; 85610; 85651; 85730; 93005; 93306; 93971; 97116; 97162; 97530; C1714; C1725; C1769; C1887; C1894; C9113; J0690; J1170; J1644; J2250; J2270; J2405; J2997; J3010; J3475; Q9967

== ENCOUNTER 2018-10-05 09:02 | Emergency (ER) | payer OTHER ==
[~2018-10-05] VITALS: Ht 165.1 cm; Wt 118.5 kg
[~2018-10-05 09:02] MED LIST: ALPR1TAB7 PO; APIX5TAB PO; DICL100G37 TOP; LIDO700A45 TP; METO-448 PO; NAR2I NS; OXYC-279 PO; OXYC-438 PO; SACC250C PO; SULF-182 PO
[2018-10-05 09:17] VITALS: BP 139/89; PULSE 69; RESP 18; Ht 165.1 cm; Wt 118.5 kg
[2018-10-05] MEDS ORDERED: ENOXAPARIN 60 MG/0.6 ML SYG SC ONE (12:00)
== END 2018-10-05 12:58 | disposition home or self-care (01) ==
LOC: FTE 09:02
DX: I82.621 Acute embolism and thrombosis of deep veins of right upper extremity (principal); Z76.0 Encounter for issue of repeat prescription
CPT/HCPCS: 81025; 93971; 96372; J1650; Z7502

== ENCOUNTER 2018-10-17 19:51 | Emergency (ER) | payer OTHER ==
[~2018-10-17] VITALS: Ht 165.1 cm; Wt 122.7 kg
[2018-10-17 19:58] VITALS: Ht 165.1 cm; Wt 122.7 kg
[2018-10-17] MEDS ORDERED: KETOROLAC 30 MG INJ IM STA (20:54)
[2018-10-17] MEDS ORDERED: HYDROCODONE/APAP (5/325) TAB PO ONE (21:00)
[2018-10-17 22:38] VITALS: BP 139/80; PULSE 78; RESP 19
== END 2018-10-17 23:02 | disposition home or self-care (01) ==
LOC: E/R 19:51
DX: M79.621 Pain in right upper arm (principal); I11.0 Hypertensive heart disease with heart failure; I50.9 Heart failure, unspecified; Z79.01 Long term (current) use of anticoagulants
CPT/HCPCS: 71045; 81025; 93971; 96372; J1885; Z7502; Z7610